=== PATIENT | female | born 1955 | race Caucasian/White ===

== ENCOUNTER 2022-06-21 09:54 | Observation (INO) | payer OTHER ==
[2022-06-16 09:50] LABS: Absolute Lymphocytes (CBC) 1.6 K/uL (0.7-4.9); Hematocrit 41.8 % (36.0-45.0); Lymphocytes % 30.4 % (15.3-44.8); MCV 96.1 fL (80-100); MPV 8.3 fL (7.6-11.3); RBC Red Blood Cell Count 4.35 M/uL (3.86-4.86)
[2022-06-16 09:54] LABS: Specific Gravity 1.005 (1.005-1.030); Urine Bilirubin NEGATIVE (Negative); Urine Blood Negative (Negative); Urine Clarity Clear (Clear); Urine Color Light-Yellow (Yellow); Urine Glucose NEGATIVE (Negative); Urine Protein NEGATIVE (Negative); Urine Urobilinogen Normal (Normal); Urine pH 7.5 (5.0-7.0)
[2022-06-16 10:01] LABS: Protime INR 0.95
[2022-06-16 10:12] LABS: SARS-CoV-2 Antigen Rapid Res Negative (Negative)
[2022-06-21] MEDS ORDERED: CEFAZOLIN SODIUM 1 GM/VIAL ONE ×2 (10:16→12:36)
[2022-06-21] MEDS ORDERED: Ringers Lactate 1,000 ML IV ONE ×2 (10:16→13:52)
[2022-06-21] MEDS ORDERED: CEFAZOLIN 2 GM IN 0.9% NACL 2 GM/100 ML BAG ONE (10:16)
[2022-06-21] MEDS ORDERED: ROCURONIUM 50 MG/5 ML VIAL IV ONE (12:18)
[2022-06-21] MEDS ORDERED: FENTANYL CITR 100 MCG/2 ML ONE (12:18)
[2022-06-21] MEDS ORDERED: propofoL 200 MG/20 ML VIAL IV ONE (12:18)
[2022-06-21] MEDS ORDERED: MIDAZOLAM HCL 2 MG/2 ML INJ ONE (12:18)
[2022-06-21] MEDS ORDERED: ONDANSETRON 4 MG/2 ML VIAL ONE (12:19)
[2022-06-21] MEDS ORDERED: KETOROLAC 30 MG/ML INJ ONE (12:19)
[2022-06-21] MEDS ORDERED: LIDOCAINE 1% MPF 5 ML VIAL ONE (12:19)
[2022-06-21] MEDS ORDERED: dexAMETHasone 10 MG/ML VIAL ONE (12:19)
[2022-06-21] MEDS ORDERED: LIDOCAINE 1% W/EPI 1:100,000 10 ML VIAL ONE (12:26)
[2022-06-21] MEDS ORDERED: NA CHLORIDE 0.9% 1,000 ML ONE (12:27)
[2022-06-21] MEDS ORDERED: NA CHLORIDE 0.9% 50 ML ONE ×2 (12:27→12:36)
[2022-06-21] MEDS ORDERED: VASOPRESSIN 20 UNIT/ML VIAL ONE (12:29)
[2022-06-21] MEDS ORDERED: VECURONIUM 10 MG/VIAL IV ONE ×2 (12:29→13:52)
[2022-06-21] MEDS ORDERED: NS 0.9% VIAL 10 ML ONE ×3 (12:29→14:26)
[2022-06-21] MEDS ORDERED: SCOPOLAMINE HYDROBROMIDE PATCH TD ONE (12:44)
[2022-06-21] MEDS ORDERED: LANO/MINERAL OIL/PETRO 3.5 GM ONE (12:49)
[2022-06-21] MEDS ORDERED: ACETAMINOPHEN 500 MG TAB PO PRN (16:09)
[2022-06-21] MEDS ORDERED: PROMETHAZINE INJ 25 MG/ML AMP IV PRN (16:09)
[2022-06-21] MEDS ORDERED: MORPHINE 2 MG/ML SYR IV PRN (16:09)
[2022-06-21] MEDS ORDERED: ONDANSETRON 4 MG/2 ML VIAL IV PRN (16:09)
--- NOTE | 2022-06-21 16:22 | P.BOP ---
Preoperative diagnosis: Pelvic organ prolapse, occult MED Postoperative diagnosis: stg3 post wall,vault anterior wall prolapse,post enter ocele,perineocele,MED Primary procedure: Ant repair,post approach rosie SSLFcolpopexy, biologic graft aug post repair Secondary procedure: post enterocele, perienocele repair, cysto, Urethral bulking Other procedure(s): removal of post vag wall 1cm condyloma Glass Sagger: Deepali Harris Estimated blood loss: 100 Specimen: condyloma Findings: -1/0/-1/6/thin/7/0/+3/na Anesthesia: General Complications: None Drain(s): Urinary catheter Implants: [place] 8x6cm dermis graft, Bulkamid Fluids & blood products: 1500LR, UO 300, EBL 100 Transferred to: Recovery Room Condition: Good
--- OUTSIDE RECORDS SUMMARY | 2022-06-21 16:35 | XMS REPORT | Continuity of Care Document ---
:1955 Author Organization [facility] t Address [address] [place] [address] [address]. [address] [place] [address] Care Team Providers Name Role Phone ARASH_Breezy Attending Clinician Unavailable Yobany Antoine Attending Clinician [phone] ARASH_Breezy Admitting Clinician Unavailable Payers Payer Name Policy Type Policy Number Effective Date Expiration Date S b[place] [id number] Problems This patient has no known problems. Allergies, Adverse Reactions, Alerts This patient has no known allergies or adverse reactions. Medications This patient has no known medications. Procedures This patient has no known procedures. Encounters Start End Encounter Admission Attending Care Care Encounter Source Date/Time Date/Time Type Type Clinicians Facility Department ID 2020-11-18 2020-11-18 Outpatient [facility] 2020 [place] 11:49:00 11:49:00 [facility] 2020-11-17 2020-11-17 Outpatient [facility] [id number] [place] 05:55:00 05:55:00 0202 [facility] 2020-11-17 2020-11-17 Outpatient Arash [facility] [id number] 00:00:00 00:00:00 Yobany [id number] Results This patient has no known results.
[2022-06-21] MEDS: HYDROMORPHONE HCL 1 MG/ML INJ ONE ×2 (16:36→16:53)
[2022-06-21] MEDS ORDERED: DOCUSATE NA 100 MG CAP PO PRN (16:38)
[2022-06-21] MEDS ORDERED: Ringers Lactate 1,000 ML IV SCH (17:00)
[2022-06-21] MEDS ORDERED: ALBUTEROL 2.5 MG/3 ML NEB SOL NEB PRN (18:11)
[2022-06-21 18:16] VITALS: O2SAT 97
[2022-06-21 18:43] VITALS: BMI 35.6
[2022-06-21] MEDS ORDERED: PNEUMOCOCCAL VACCINE 0.5 ML IMVAC ONE (19:00)
[2022-06-21] MEDS ORDERED: MOMETASONE FUROATE 220 MCG IH SCH (21:00)
[2022-06-22] MEDS: HYDROCODONE/APAP 5/325 MG TAB PO PRN ×2 (02:09→10:26)
--- NOTE | 2022-06-22 04:10 | OP ---
Date of Procedure: 06/21/2022 Surgeon: Esmer Garcia MD Server Software Engineer: Deepali Lora. Preoperative Diagnoses: Pelvic organ prolapse and occult stress urinary incontinence. Postoperative Diagnoses: Stage III posterior wall prolapse, anterior wall stage II prolapse, posteri or enterocele, perineocele, occult stress urinary incontinence, and posterior vaginal wall condyloma. Procedures Performed: 1.Anterior repair. 2.Posterior approach bilateral sacrospinous ligament fixation and colpopexy. 3.Biologic graft augmented posterior wall repair. 4.Posterior enterocele repair. 5.Perineocele repair. 6.Cystoscopy. 7.Urethral bulking. 8.Removal and excision of posterior vaginal wall condyloma, which was 1 cm. Anesthesia: General with LMA. Ebl: 100. Urine Output: 300. Fluids: 1500 LR. Specimen: Condyloma. Complications: No complications. Drains: Morrow catheter. Implants: [place] Dermis 8 x 6 graft and Bulkamid 0.7 mL. Disposition: Transferred to the recovery room in stable condition. Findings: The patient's POP-Q is -1, 0, -1, 6, 10, 7, 0, +3, NA. After filling her bladder with 350 of saline, Valsalva was performed, after the full reconstruction. There was very minimal leakage so decided to do urethral bulking, very slight amount was placed. Procedure In Detail: After informed consent was verified, the patient was brought back to the OR. H er was present at the preop and questions and answers were done to their satisfaction. The patient understood all the alternatives to her reconstructive surgery. Had defecatory dysfunctio n, which she was compensating for and symptomatic prolapse. Declined pessary and wanted surgical rep air and she was consented and brought to the OR fully understanding about the posterior graft, augmen t, and repair in case that there is a large upper posterior wall fascial defect that could not be rep aired primarily, especially in the absence of a cervical pericervical ring or any fascia that could b e identified at the top to which the proximal remaining rectovaginal septum can be anchored to. The patient understood this. This is her initial repair and the biologic graft, she understood would be used as if needed. She will be also discussed about the possible anterior repair, if the defect was seen and deemed nece ssary and same thing with the MED for bulking. She was taken back to OR, 2 g of Ancef were given, and SCDs were placed. The patient was placed in a supine fashion on the operating table. General anesthesia was given. She was placed in a dorsal li thotomy position using Los stirrups. Arms were laid to the side and positioning was checked. SCDs were started and a time-out was done. Then procedure was started. The lower abdomen, vulva, vagina , medial thigh were all prepped and draped in a sterile fashion. Morrow was placed to drain the bladd er and clamped with a Sonal and retracted superiorly. Then, the anterior wall from the vault to the urethrovesical junction was held with 2 Allis clamps. This seemed to be a proximal detachment of the precervical fascia to the apex, so this was opened in the midline after injecting dilute vasopressin . The bladder was dissected inferiorly, left the fascia intact while doing the dissection and stayin g then on the vaginal epithelium. Once this was done, opened up all the way to the vault and then I was able to take the fascial defect and reattach it to the vaginal wall. Once this was done, the epi thelium was closed in a continuous running fashion. There was no trimming that was performed in the anterior compartment. Posteriorly, the remnants of the hymen were identified and held with Allis clamps. Then, the posteri or wall was measured with its large proximal enterocele, which was probably about 50% of the posterio r defect. The posterior wall length was 9 cm. Rectovaginal exam performed and clearly part of the s phincter was intact, but the perineum, the vestibule, and the deep transverse perineum were also sepa rated. So a plan was made to make a natividad-shaped incision, starting right at the level of the hyme n into the vestibule and down onto the perineum. This was drawn out and then another natividad-shaped incision was made in the distal posterior wall. Epithelium was deepithelialized after injecting vaso pressin. Then the lateral structures were exposed by mobilizing the lateral flaps on the perineum at the level of the vestibule as well. Once this was done adequately, then attention was directed to t he posterior wall. Here the epithelium was incised with the help of a 15 blade and the epithelium wa s peeled off the remaining deep connective tissue. Once all this was deepithelialized, then the edge s were held with Allis clamps and dissection was performed to separate the rectovaginal septum from i ts overlying tissues in the proximal part and then laterally all the way down to the level of the hym en. Did not need to expose the levators as the lateral attachment of the distal rectovaginal septum was intact and these attachments were left preserved in order for me to attach the distal part of the graft here. Once the posterior enterocele was exposed, dissection was performed all the way to the level of the v aginal apex. Then dissection was carried laterally to the sacrospinous ligament. The ischial spine was identified and medially sweeping posteriorly, the ligament was exposed on the right side and then on the left side, dissecting the rectum away from the ligament. Capio was taken with a Prolene suture, 1 on each side, placed in the mid ligament protecting the violet l while doing so and tagging it to hemostat on each side. Then, the apex was identified in the area of the possible uterosacral ligament. Allis clamps were placed and a 2-0 PDS rxlqob-bh-hzagi suture was placed and they were tacked in the center of the posterior vaginal wall and in the midline anothe r 2-0 PDS was placed for attachment of the graft. Fashioned the graft, took an 8 x 6 and cut it down to almost a T, 8 cm at the interspinous side proxi mauricio and then distally 3 cm was left as the width. Posterior enterocele was reduced by using a 3-0 Monocryl in a pursestring fashion reducing the entero christie adequately all the way to the proximal part of the remaining remnant of the rectovaginal septum. I then tacked 2-0 PDS in the center as well as on the sides that were placed at the apex to the pro ximal rectovaginal septum so that the fascia was straightened out and pulled up. This was then attac hed the graft in the center and on both sides and the sutures were tied down. Then, the sacrospinous sutures were attached to the graft and a nohelia stitch was placed and this was used to pull the stefania t all the way back to the ligament and tie the knots without leaving any space. Once both of them we re tied at the apex, there was excellent support, both in the center as well as in the posterior wall . The distal part of the defect was then repaired. Attention was directed to the perineum and the perineocele. The edges were nicely dissected, so star kierra placing 2-0 Vicryl sutures to bring the structures together from the deep transverse perineum all the way to the area of the perineum and the external sphincter. Interrupted sutures [id number]-fi-tqzu we re placed, 2 rows in 2 layers were placed and 4 each in each layer. This reconstructed the entire pe rineum, perineal body and the vestibule. Then attention was directed to bring together the lax recto vaginal septum from aizg-yg-vzox with 2-0 PDS suture in a continuous running fashion and this was att ached to the newly reconstructed perineal body. Once this was done, the suture was left on the needl e and this was attached to the distal part of the graft in a continuous running fashion from side-to- side. There was excellent attachment and the knot was buried. Then, the posterior vaginal wall was picked up with the help of a long Sonal and slightly trimmed about 0.5 cm on each side, taken with th e curved Burris's and then closure was done with a continuous running 2-0 Vicryl suture. Once this was done all the way to the level of the perineum, then 3-0 Vicryl was taken and a continuous running desai ture was placed by closing the subcutaneous tissues and then subcuticular tissues. On rectovaginal e xam, there was thick perineal body. No tightening at the level of the hymen and adequate vaginal stephanie meter and length were maintained. Urethral bulking was performed after cystoscopy. A 30-degree scope and 17-Yi sheath were used. Both ureteric orifices had strong jets of urine. No evidence of any foreign body or trauma to the bl adder. The bladder was then drained. The pediatric cystoscope was then taken with the Bulkamid sheath attached to it. The needle with 1 m L syringe with the Bulkamid implant was taken and the needle was extended to the internal meatus. Th en the sheath was placed at the internal meatus, the needle extended past 2 cm into the bladder and e verything pulled back to mid urethral area. Needle retracted back into the tract and injected at 5 o 'clock, 2 o'clock, 11 and 7, 0.2 mL each was injected at each side. The scope was then carefully rem anjali without dilating the proximal part of the urethra, which was just bulked. A 12-Yi Morrow was placed for drainage overnight. Vaginal packing was placed. Rectal exam negati ve. The patient recovered from anesthesia and taken to PACU in stable condition. She will be admitt ed overnight for observation and then will be discharged after voiding trials tomorrow. MARCELINO/DAYANNA Voice ID: [id number] Report ID: [id number]
[2022-06-22 08:45] VITALS: BP 145/74; TEMP 98.5
[2022-06-22] MEDS ORDERED: FLUTICASONE 50MCG NASAL SPRAY NAS SCH (09:00)
[2022-06-22] MEDS ORDERED: AMLODIPINE 10 MG TAB PO SCH (09:00)
[2022-06-22] MEDS ORDERED: HOME MED 1 EA UNK (Estradiol [Estrace] 42.5 GM Cream.Appl) VAG SCH (09:00)
[2022-06-22] MEDS ORDERED: MULTIVITAMIN TAB PO SCH (09:00)
[2022-06-22] MEDS ORDERED: OLMESARTAN PO SCH (09:00)
[2022-06-22] MEDS ORDERED: [UNRECOGNIZED DRUG - REMARK] PO SCH (09:00)
[2022-06-22] MEDS ORDERED: HYDROCHLOROTHIAZIDE PO SCH (09:00)
== END 2022-06-22 11:05 | disposition home or self-care (01) ==
LOC: OR 09:54 → 2ND-WC 16:32
PROVIDERS: ADMIT Obstetrics & Gynecology; ATTEND Obstetrics & Gynecology
PROC: 0JUC0JZ Supplement of Pelvic Region Subcutaneous Tissue and Fascia with Synthetic Substitute, Open Approach (ICD-10-PCS; 2022-06-21)
PROC: 0JUC0JZ Supplement of Pelvic Region Subcutaneous Tissue and Fascia with Synthetic Substitute, Open Approach (ICD-10-PCS; 2022-06-21)
PROC: 0HQ9XZZ Repair Perineum Skin, External Approach (ICD-10-PCS; 2022-06-21)
PROC: 0USG7ZZ Reposition Vagina, Via Natural or Artificial Opening (ICD-10-PCS; 2022-06-21)
PROC: 0TVD8ZZ Restriction of Urethra, Via Natural or Artificial Opening Endoscopic (ICD-10-PCS; 2022-06-21)
PROC: 0UBG7ZZ Excision of Vagina, Via Natural or Artificial Opening (ICD-10-PCS; 2022-06-21)
PROC: 0UUF0JZ Supplement Cul-de-sac with Synthetic Substitute, Open Approach (ICD-10-PCS; principal; 2022-06-21 11:30)
DX: N99.3 Prolapse of vaginal vault after hysterectomy (principal); N39.3 Stress incontinence (female) (male); N32.81 Overactive bladder; A63.0 Anogenital (venereal) warts; J45.30 Mild persistent asthma, uncomplicated; I10 Essential (primary) hypertension; N84.2 Polyp of vagina; Z20.822 Contact with and (suspected) exposure to COVID-19
CPT/HCPCS: 57265; 57267; 57282; 51715; 57135; 85025; 36415; 86900; 86850; 85610; 86870 ×2; 86901; 82947; 88304; 85730; 81003; 87811; G0379; J2704; J2001; J2250; J3010; J1100; J2270; A4216 ×3; J1170; J0690 ×3; G0378 ×3; J7120 ×4; J7030; J2405; L8606; 88305

== ENCOUNTER 2023-04-03 03:08 | Emergency (ER) | payer OTHER ==
--- OUTSIDE RECORDS SUMMARY | 2023-04-03 03:11 | XMS REPORT | Continuity of Care Document ---
:1955 Author Organization [facility] t Address [address] [place] [address] [place] [address] Care Team Providers Name Role Phone ARASH_Breezy Attending Clinician Unavailable Yobany Antoine Attending Clinician [phone] ALYSIA Admitting Clinician Unavailable Payers Payer Name Policy Type Policy Number Effective Date Expiration Date S fac[place] [id number] Problems This patient has no known problems. Allergies, Adverse Reactions, Alerts This patient has no known allergies or adverse reactions. Medications This patient has no known medications. Procedures This patient has no known procedures. Plan of Care Planned Activity Planned Date Details Comments Source Diagnostic Test 2020-11-17 COVID-19 RNA [place] [facility] Pending 00:00:00 (SARS-CoV-2), , [facility] linics spring coverer-PCR, 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 [code = COVID-19 RNA (SARS-CoV-2), QL, spring coverer-PCR, 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] Diagnostic Test 2020-11-17 COVID-19 RNA [place] [facility] Pending 00:00:00 (SARS-CoV-2), , [facility] linics spring coverer-PCR, 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 [code = COVID-19 RNA (SARS-CoV-2), , spring coverer-PCR, 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] Diagnostic Test 2020-11-17 rapid SARS CoV 2 Ag, [facility] Pending 00:00:00 QL [place], respiratory Hospital Clinics specimen [code = rapid SARS CoV 2 Ag, QL [place], 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] Encounters Start End Encounter Admission Attending Care Care Encounter Source Date/Time Date/Time Type Type Clinicians Facility Department ID 2020-11-18 2020-11-18 Outpatient [facility]ree[facility] 2020 [place] 11:49:00 11:49:00 0203 [facility] 2020-11-17 2020-11-17 [facility] 2020 [place] 05:55:00 05:55:00 0202 [facility] 2020-11-17 2020-11-17 [id number]:00:00 00:00:00 Yobany [id number] 2020-11-17 2020-11-17 [facility] [place] [facility] [place] 00:00:00 00:00:00 Arash, [facility] MSN, HOMEMAKER [employer]ION, [facility] - ty MANAGEMENT MANAGER-C: [address] [facility] [address], [facility] [address], [place], [place] MSN, MANAGEMENT MANAGER-C [id number] , Ph. Results Test Description Test Time Test Comments Results Result Comments Source SARS-CoV-2 (COVID-19) Ag [Presence] in Respiratory spe cimen by 2020-11-17 16:57:00 Rapid immunoassay Test Item Value Reference Range Interpretation Comme nts SARS CoV 2 (test code = SARS CoV 2) positive [facility]
[2023-04-03] MEDS ORDERED: MORPHINE 4 MG/ML SYR ONE (04:05)
[2023-04-03] MEDS ORDERED: ONDANSETRON 4 MG/2 ML VIAL ONE (04:06)
[2023-04-03] MEDS ORDERED: NA CHLORIDE 0.9% 1,000 ML ONE (04:06)
[2023-04-03] MEDS ORDERED: KETOROLAC 30 MG/ML INJ ONE (04:06)
[2023-04-03 04:15] LABS: Absolute Lymphocytes (CBC) 1.5 K/uL (0.7-4.9); Hematocrit 40.9 % (36.0-45.0); Lymphocytes % 16.6 % (15.3-44.8); MCV 97.4 fL (80-100); RBC Red Blood Cell Count 4.19 M/uL (3.86-4.86)
[2023-04-03 04:27] LABS: Protime INR 1.03
[2023-04-03 04:35] LABS: Albumin 3.8 g/dL (3.4-5.0); Bilirubin Direct 0.1 mg/dL (0-0.2); Bilirubin Indirect, Calculated 0.4 mg/dL (0.2-0.8); Bilirubin Total 0.5 mg/dL (0.2-1.0); Potassium 3.2 mEq/L (3.5-5.1); Protein, Total 7.9 g/dL (6.4-8.2); Troponin High Sensitivity 4.6 pg/mL (<58.9)
[2023-04-03 05:53] LABS: Specific Gravity 1.018 (1.005-1.030); Urine Bacteria <20 /HPF (<20); Urine Bilirubin NEGATIVE (Negative); Urine Blood 3+ (OVER) (Negative); Urine Clarity Extremely Turbid (Clear); Urine Color Light-Yellow (Yellow); Urine Glucose NEGATIVE (Negative); Urine Mucus Slight /HPF (None Seen); Urine Protein TRACE (Negative); Urine RBC >50 /HPF (None Seen); Urine Urobilinogen Normal (Normal)
--- NOTE | 2023-04-03 06:02 | EDPHYS ---
Physician Documentation [facility] Name: Danita Soto Age: 67 yrs Sex: Female : 1955 Arrival Date: 04/03/2023 Time: 03:08 Bed 5 Private MD: ED Physician Tunde Aguirre HPI: 04/03 03:22 This 67 yrs old Female presents to ER via Unassigned with complaints of Back sp4 Pain, Nausea. 05:55 Patient presents with moderate to severe left back pain starting on awakening at 10 PM. sp4 Patient reported some pain radiation to the left flank. Denied bloody urine. He denied any urinary symptom. Reported similar pain with prior history of kidney stone. . Historical: - Allergies: 03:26 No Known Allergies; kd3 - Home Meds: 03:26 amlodipine 10 mg tablet daily [Active]; meloxicam 15 mg oral tablet daily [Active]; kd3 olmesartan-hydrochlorothiazide 40-25 mg oral tablet daily [Active]; fluorometholone 0.1 % ophthalmic (eye) drops, suspension every 12 hours [Active]; - Immunization history:: Adult Immunizations up to date. - Social history:: Smoking status: Patient denies any tobacco usage or history of. - Family history:: not pertinent. ROS: 05:55 Constitutional: Negative for fever, chills, and weight loss, Eyes: Negative for injury, sp4 pain, redness, and discharge, ENT: Negative for injury, pain, and discharge, Neck: Negative for injury, pain, and swelling, Cardiovascular: Negative for chest pain, palpitations, and edema, Respiratory: Negative for shortness of breath, cough, wheezing, and pleuritic chest pain, Abdomen/GI: Negative for abdominal pain, nausea, vomiting, diarrhea, and constipation, Back: Negative for injury, positive for left back pain radiation left flank : Negative for injury, bleeding, discharge, and swelling, MS/Extremity: Negative for injury and deformity, Skin: Negative for injury, rash, and discoloration, Neuro: Negative for headache, weakness, numbness, tingling, and seizure, Psych: Negative for depression, anxiety, Allergy/Immunology: Negative for hives, rash, and allergies Endocrine: Negative for neck swelling, polydipsia, polyuria, polyphagia, and weight changes Hematologic/Lymphatic: Negative for swollen nodes, abnormal bleeding, and unusual bruising Exam: 05:55 Constitutional: This is a well developed, well nourished patient who is awake, alert, sp4 and in no acute distress. Head/Face: Normocephalic, atraumatic. Eyes: Pupils equal round and reactive to light, extra-ocular motions intact. Lids and lashes normal. Conjunctiva and sclera are not injected. Cornea within normal limits. Periorbital areas with no swelling, redness, or edema. ENT: Nares patent. No nasal discharge, no septal abnormalities noted. Tympanic membranes are normal and external auditory canals are clear. Oropharynx with no redness, swelling, or masses, exudates, or evidence of obstruction, uvula midline. Mucous membranes moist. Neck: Trachea midline, no thyromegaly or masses palpated, and no cervical lymphadenopathy. Supple, full range of motion without nuchal rigidity, or vertebral point tenderness. Chest/axilla: Normal chest wall appearance and motion. Nontender with no deformity. No lesions are appreciated. Cardiovascular: Regular rate and rhythm with a normal S1 and S2. No gallops, murmurs, or rubs. Normal PMI, no JVD. No pulse deficits. Respiratory: Lungs have equal breath sounds bilaterally, clear to auscultation and percussion. No rales, rhonchi or wheezes noted. No increased work of breathing, no retractions or nasal flaring. Abdomen/GI: Soft, non-tender, with normal bowel sounds. No distension or tympany. No guarding or rebound. No evidence of tenderness throughout. Back: No spinal tenderness. No costovertebral tenderness. Skin: Warm, dry with normal turgor. Normal color with no rashes, no lesions, and no evidence of cellulitis. MS/ Extremity: Pulses equal, no cyanosis. Neurovascular intact. Full, normal range of motion. Neuro: Awake and alert, GCS 15, oriented to person, place, time, and situation. Cranial nerves II-XII grossly intact. Motor strength 5/5 in all extremities. Sensory grossly intact. Psych: Awake, alert, with orientation to person, place and time. Behavior, mood, and affect are within normal limits Vital Signs: 03:23 BP 178 / 85; Pulse 72; Resp 16; Temp 97.9; Pulse Ox 96% on R/A; Weight 95.25 kg; Height kd3 5 ft. 5 in. ; 04:20 BP 117 / 55; Pulse 75; Resp 16 S; Pulse Ox 96% on R/A; ha1 03:23 Body Mass Index 34.95 (95.25 kg, 165.1 cm) kd3 MDM: 03:31 Patient medically screened. sp4 05:55 Differential diagnosis: Fatigue Fracture Osteoarthritis Scoliosis. Data reviewed: vital sp4 signs, nurses notes, lab test result(s), radiologic studies, CT scan. ED course: Pain resolved after the medications. Labs reveal hematuria. Otherwise labs essentially normal. CT revealed 4 mm renal stone in the left upper ureter. Mild hydronephrosis on the left side. Based on the stone size stone will pass on its own. . 04/03 03:21 Order name: Urinalysis W/Microscopic; Complete Time: 05:54 sp4 04/03 03:30 Order name: Basic Metabolic Panel; Complete Time: 05:36 sp4 04/03 03:30 Order name: CBC with Diff; Complete Time: 05:36 4 04/03 03:30 Order name: LFT's; Complete Time: 05:36 sp4 04/03 03:30 Order name: PT-INR; Complete Time: 05:36 4 04/03 03:30 Order name: Troponin HS; Complete Time: 05:36 4 04/03 03:30 Order name: CT Abd/Pelvis - IV Contrast Only 4 04/03 03:30 Order name: IV Saline Lock; Complete Time: 04:11 sp4 04/03 03:30 Order name: Labs collected and sent; Complete Time: 04:11 sp4 Administered Medications: 04:00 Drug: NS 0.9% IV 1000 ml Route: IV; Rate: 1 bolus; Site: right antecubital; ha1 04:00 Drug: Ondansetron IVP 4 mg Route: IVP; Site: right antecubital; ha1 04:03 Drug: morphine IVP or IV 4 mg Route: IVP; Infused Over: 4 mins; Site: right antecubital;ha1 04:06 Drug: Ketorolac IVP 30 mg Route: IVP; Site: right antecubital; ha1 06:15 Drug: Flomax PO 0.4 mg Route: PO; kd3 06:15 Drug: Ondansetron PO 4 mg Route: PO; kd3 06:16 Drug: Gramercy PO 10 mg-325 mg 1 tabs Route: PO; kd3 Disposition Summary: 04/03/23 06:02 Discharge Ordered Location: Home sp4 Problem: new sp4 Symptoms: have improved sp4 Condition: Stable sp4 Diagnosis - Left ureteral stone, renal colic sp4 Followup: sp4 - With: Lm Nugent MD - When: 10 - 14 days - Reason: Recheck today's complaints Discharge Instructions: - Discharge Summary Sheet sp4 - Kidney Stones, [id number]-rg-[id number] sp4 Prescriptions: - Flomax 0.4 mg Oral capsule - take 1 capsule by ORAL route every 24 hours for 30 days; 30 capsule; Refills: sp4 0, Product Selection Permitted - ketorolac 10 mg Oral tablet - take 1 tablet by ORAL route every 6 hours for 7 days PRN for pain; 30 tablet; sp4 Refills: 0, Product Selection Permitted - Zofran 4 mg Oral Tablet - take 1 tablet by ORAL route every 6 hours As needed; 30 tablet; Refills: 0, sp4 Product Selection Permitted - Tramadol 50 mg Oral Tablet - take 1 tablet by ORAL route every 8 hours as needed; 12 tablet; Refills: 0, sp4 Product Selection Permitted Signatures: Dispatcher [employer] Dodie Real RN RN kd3 Natasha Tinsley RN RN ha1 Tunde Aguirre MD MD sp4
--- NOTE | 2023-04-03 06:02 | ER ---
Nurse's Notes [facility] Name: Danita Soto Age: 67 yrs Sex: Female : 1955 Arrival Date: 04/03/2023 Time: 03:08 Bed 5 Private MD: Diagnosis: Left ureteral stone, renal colic Presentation: 04/03 03:23 Chief complaint: Patient states: I have a pain in my left lower back that radiates kd3 around to my abdomen. My left hip/back always hurts but i am getting more pain than normal that started last night. Coronavirus screen: Vaccine status: Patient reports receiving the 2nd dose of the covid vaccine. Ebola Screen: No symptoms or risks identified at this time. Initial Sepsis Screen: Does the patient meet any 2 criteria? No. Patient's initial sepsis screen is negative. Does the patient have a suspected source of infection? No. Patient's initial sepsis screen is negative. Risk Assessment: Do you want to hurt yourself or someone else? Patient reports no desire to harm self or others. Onset of symptoms was April 03, 2023. 03:23 Method Of Arrival: Ambulatory kd3 03:23 Acuity: LOBITO 3 kd3 Triage Assessment: 03:26 General: Appears in no apparent distress. Behavior is calm, cooperative. Pain: kd3 Complains of pain in left low back, left lower quadrant and left hip. Musculoskeletal: Circulation, motion, and sensation intact. Historical: - Allergies: 03:26 No Known Allergies; kd3 - Home Meds: 03:26 amlodipine 10 mg tablet daily [Active]; meloxicam 15 mg oral tablet daily [Active]; kd3 olmesartan-hydrochlorothiazide 40-25 mg oral tablet daily [Active]; fluorometholone 0.1 % ophthalmic (eye) drops, suspension every 12 hours [Active]; - Immunization history:: Adult Immunizations up to date. - Social history:: Smoking status: Patient denies any tobacco usage or history of. - Family history:: not pertinent. Screenin:16 [facility] ED Fall Risk Assessment (Adult) History of falling in the last 3 months, kd3 including since admission No falls in past 3 months (0 pts) Confusion or Disorientation No (0 pts) Intoxicated or Sedated No (0 pts) Impaired Gait No (0 pts) Mobility Assist Device Used No (0 pt) Altered Elimination No (0 pt) Score/Fall Risk Level 0 - 2 = Low Risk Maintained a safe environment. Abuse screen: Denies threats or abuse. Denies injuries from another. Nutritional screening: No deficits noted. Tuberculosis screening: No symptoms or risk factors identified. Assessment: 03:16 General: Appears uncomfortable, Behavior is cooperative. Pain: Complains of pain in ha1 abdomen and back Pain radiates to left low back Pain currently is 8 out of 10 on a pain scale. Quality of pain is described as throbbing. Neuro: Level of Consciousness is awake, alert, obeys commands, Oriented to person, place, time, situation. Cardiovascular: Patient's skin is warm and dry. Respiratory: Airway is patent Respiratory effort is even, unlabored, Respiratory pattern is regular, symmetrical. GI: Abdomen is round non-distended, Bowel sounds present X 4 quads. Reports lower abdominal pain, nausea. : No signs and/or symptoms were reported regarding the genitourinary system. EENT: No signs and/or symptoms were reported regarding the EENT system. Derm: Skin is pink, warm \T\ dry. Musculoskeletal: Circulation, motion, and sensation intact. Range of motion: intact in all extremities. 04:20 Reassessment: Patient and/or family updated on plan of care and expected duration. Pain ha1 level reassessed. Patient is alert, oriented x 3, equal unlabored respirations, skin warm/dry/pink. Patient states feeling better. Patient states symptoms have improved. 05:20 Reassessment: Patient and/or family updated on plan of care and expected duration. Pain ha1 level reassessed. Patient is alert, oriented x 3, equal unlabored respirations, skin warm/dry/pink. Patient denies pain at this time. Patient states feeling better. Patient states symptoms have improved. Vital Signs: 03:23 BP 178 / 85; Pulse 72; Resp 16; Temp 97.9; Pulse Ox 96% on R/A; Weight 95.25 kg; Height kd3 5 ft. 5 in. ; 04:20 BP 117 / 55; Pulse 75; Resp 16 S; Pulse Ox 96% on R/A; ha1 03:23 Body Mass Index 34.95 (95.25 kg, 165.1 cm) kd3 ED Course: 03:14 Patient arrived in ED. ja2 03:21 Potepalov, Tunde, MD is Attending Physician. sp4 03:26 Triage completed. kd3 03:26 Arm band placed on right wrist. kd3 04:11 Basic Metabolic Panel Sent. ha1 04:11 CBC with Diff Sent. ha1 04:11 LFT's Sent. ha1 04:11 PT-INR Sent. ha1 04:11 Troponin HS Sent. ha1 04:58 CT Abd/Pelvis - IV Contrast Only In Process Unspecified. EDMS 05:19 Natasha Tinsley, THA is Primary Nurse. ha1 06:01 Lm Nugent MD is Referral Physician. sp4 06:16 Patient has correct armband on for positive identification. kd3 06:16 No provider procedures requiring assistance completed. IV discontinued, intact, kd3 bleeding controlled, No redness/swelling at site. Pressure dressing applied. Administered Medications: 04:00 Drug: NS 0.9% IV 1000 ml Route: IV; Rate: 1 bolus; Site: right antecubital; ha1 04:00 Drug: Ondansetron IVP 4 mg Route: IVP; Site: right antecubital; ha1 04:03 Drug: morphine IVP or IV 4 mg Route: IVP; Infused Over: 4 mins; Site: right antecubital;ha1 04:06 Drug: Ketorolac IVP 30 mg Route: IVP; Site: right antecubital; ha1 06:15 Drug: Flomax PO 0.4 mg Route: PO; kd3 06:15 Drug: Ondansetron PO 4 mg Route: PO; kd3 06:16 Drug: [place] PO 10 mg-325 mg 1 tabs Route: PO; kd3 Medication: 06:16 VIS not applicable for this client. kd3 Outcome: 06:02 Discharge ordered by . sp4 06:16 Discharged to home ambulatory. kd3 06:16 Condition: stable 06:16 Discharge instructions given to patient, family, Instructed on discharge instructions, follow up and referral plans. medication usage, Demonstrated understanding of instructions, follow-up care, medications, Prescriptions given X 4. 06:16 Patient left the ED. kd3 Signatures: Dispatcher [employer] EDSC Mihaela Akins ja2 Dodie Franklin RN RN kd3 Natasha Tinsley RN RN ha1 Louis Aguirrey, MD MD sp4
[2023-04-03] MEDS ORDERED: HYDROCODONE/APAP 10/325 TAB ONE (06:18)
[2023-04-03] MEDS ORDERED: TAMSULOSIN 0.4 MG SR CAP ONE (06:18)
[2023-04-03] MEDS ORDERED: ONDANSETRON 4 MG (ODT) TAB ONE (06:18)
[2023-04-03 06:22] VITALS: BP 117/55; TEMP 97.9; O2SAT 96
--- NOTE | 2023-04-03 10:32 | RAD REPORT ---
EXAM DESCRIPTION: CT - Abdomen Pelvis W Contrast - 04/03/2023 6:28 am CLINICAL HISTORY: The patient is 67 years old and is Female; ABD PAIN TECHNIQUE: Axial computed tomography images of the abdomen and pelvis with intravenous contrast. S agittal and coronal reformatted images were created and reviewed. This CT exam was performed using one or more of the following dose reduction techniques: automated exposure control, adjustment of t he mA and/or kV according to patient size, and/or use of iterative reconstruction technique. COMPARISON: No relevant prior studies available. FINDINGS: Lung bases: Unremarkable. No mass. No consolidation. ABDOMEN: Liver: Unremarkable. No mass. Gallbladder and bile ducts: Unremarkable. No calcified stones. No ductal dilation. Pancreas: Unremarkable. No mass. No ductal dilation. Spleen: Unremarkable. No splenomegaly. Adrenals: Unremarkable. No mass. Kidneys and ureters: 4 mm stone in the upper left ureter. Mild left hydroureteronephrosis and per inephric/periureteral stranding. Stomach and bowel: Sigmoid diverticulosis. No obstruction. No mucosal thickening. PELVIS: Appendix: No findings to suggest acute appendicitis. Bladder: Unremarkable. Reproductive: Uterus is not seen. ABDOMEN and PELVIS: Intraperitoneal space: Unremarkable. No free air. No significant fluid collection. Bones/joints: No acute fracture. No dislocation. Soft tissues: Unremarkable. Vasculature: Scattered atherosclerotic vascular calcifications. No abdominal aortic aneurysm. Lymph nodes: Unremarkable. No enlarged lymph nodes. IMPRESSION: 4 mm stone in the upper left ureter. Mild left hydroureteronephrosis and perinephric/per iureteral stranding. Electronically signed by: Javier Lucas MD 04/03/2023 5:19 AM CDT Due to temporary technical issues with the PACS/Fluency reporting system, reports are being signed by the in house radiologist without review as a courtesy to ensure prompt reporting. The interpreting r adiologist is fully responsible for the content of the report.
== END 2023-04-03 06:16 | disposition home or self-care (01) ==
LOC: ER 03:08
DX: N20.1 Calculus of ureter (principal); N23 Unspecified renal colic
CPT/HCPCS: 85025; 81001; 80048; 36415; 85610; 80076; 84484; 74177; 96375; 96374; 99284; Q9967; Q0162; J2405; J7030

== ENCOUNTER 2024-03-25 20:09 | Emergency (ER) | payer OTHER ==
--- OUTSIDE RECORDS SUMMARY | 2024-03-25 20:12 | XMS REPORT | Continuity of Care Document ---
Author Name Unknown Address [address] [facility] [address] [place] [address] [facility] Address [address] [facility] [address] [place] [address] Care Team Providers Care Gold Burnisher Name Role Phone Robby Ugalde Attending Clinician Unavailable [email or web address]_Kadiyala_S Attending Clinician Unavaila ble SISSON_C Attending Clinician Unavailable Yobany Antoine Attending Clinician [phone] Robby Ugalde Admitting Clinician Unavailable GC_GCBZW_Kadiyala_S Admitting Clinician Unavaila ble SISSON_C Admitting Clinician Unavailable Payers Payer Name Policy Type Policy Number Effective Date Expirati on Date Source [place]: [employer] [id number] 2021 00:00:00 CHAYO IBRAHIM FIORELLA (MEDICARE SUPPLEMENT) [id number] 2021 00:00:00 [place] [id number] Plan of Care Planned Activity Planned Date Details Comments Source Diagnostic Test Pending 2020-11-17 00:00:00 COVID-19 RNA (SARS-CoV-2), QL, optometry assistant-PCR, 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 [code = COVID-19 RNA (SARS-CoV-2), QL, optometry assistant-PCR, 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] [facility] Diagnostic Test Pending 2020-11-17 00:00:00 COVID-19 RNA (SARS-CoV-2), QL, optometry assistant-PCR, 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 [code = COVID-19 RNA (SARS-CoV-2), QL, optometry assistant-PCR, 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] [facility] Diagnostic Test Pending 2020-11-17 00:00:00 rapid SARS CoV 2 Ag, QL IA, 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 [code = rapid SARS CoV 2 Ag, QL IA, 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] [facility] Encounters Start Date/Time End Date/Time Encounter Type Admission Type Attending Clinicians Care Facility Care Department Encounter ID Source 2024-03-25 15:38[id number] 2023-08-15 08:54:01 Outpatient Robby Ugalde [facility] [id number] [facility] 2023-09-12 00:00:00 2023-09-12 00:00:00 Outpatient GC_GCBZW_Ka diyala_S PRIV PRIV [id number] [facility] 2023-08-09 00:00:00 2023-08-09 00:00:00 Outpatient GC_GCBZW_Ka diyala_S PRIV PRIV [id number] [facility] 2023-07-04 00:00:00 2023-07-04 00:00:00 Outpatient GC_GCBZW_Ka diyala_S PRIV PRIV [id number] [facility] 2023-05-08 00:00:00 2023-05-08 00:00:00 Outpatient GC_GCBZW_Ka diyala_S PRIV PRIV [id number] [facility] 2023-05-03 00:00:00 2023-05-03 00:00:00 Outpatient GC_GCBZW_Ka diyala_S PRIV PRIV [id number] [facility] 2020-11-18 11:49:00 2020-11-18 11:49:00 Outpatient SISSON_Breezy [facility] [id number] [facility] 2020-11-17 05:55:00 2020-11-17 05:55:00 Outpatient ROGERS_Breezy [facility] [id number] [facility] 2020-11-17 00:00:00 2020-11-17 00:00:00 Outpatient Yobany Antoine [facility] [id number] 2020-11-17 00:00:00 2020-11-17 00:00:00 Yobany Antoine, MSN, COORDINATOR CARDIOPULMONARY SERVICES, LABORER [employer]: [address], [address], [place] [address] , Ph. [facility] - [facility], [facility] - [facility], Yobany Antoine, MSN, LABORER [employer]C [id number] [facility] Results Test Description Test Time Test Comments Results Result Co mments Source [facility]
[2024-03-25] MEDS ORDERED: ONDANSETRON 4 MG/2 ML VIAL ONE (20:16)
[2024-03-25] MEDS ORDERED: KETOROLAC 30 MG/ML INJ ONE (20:16)
[2024-03-25] MEDS ORDERED: MORPHINE 4 MG/ML SYR ONE (20:17)
[2024-03-25 20:43] LABS: Absolute Eosinophils 0.1 K/uL (0-0.5); Absolute Lymphocytes (CBC) 2.1 K/uL (0.7-4.9); Absolute Monocytes 0.5 K/uL (0.1-1.3); Absolute Neutrophil 3.9 K/uL (1.8-8.0); Basophils % 0.7 % (0-1.3); Eosinophils % 1.6 % (0-4.4); Hematocrit 40.6 % (36.0-45.0); Hemoglobin 13.7 g/dL (12.0-15.0); Lymphocytes % 31.8 % (15.3-44.8); MCH 32.5 pg (27.0-35.0); MCHC 33.7 g/dL (32.0-36.0); MCV 96.6 fL (80-100); MPV 9.5 fL (7.6-11.3); Monocytes % 7.2 % (3.3-12.3); Neutrophils % 58.7 % (41.7-73.7); Platelets 236 thou/uL (152-406)
[2024-03-25 20:59] LABS: PT Prothrombin Time 11.2 SECONDS (9.5-12.5); PTT, Activated Partial Thromb 30.7 SECONDS (24.3-36.9); Protime INR 1.02
[2024-03-25 21:04] LABS: Albumin 3.6 g/dL (3.4-5.0); Anion Gap 8.5 mEq/L (5.0-15.0); Bilirubin Total 0.5 mg/dL (0.2-1.0); Globulin 3.6 g/dL (2.3-3.5); Protein, Total 7.2 g/dL (6.4-8.2)
[2024-03-25 21:05] LABS: Potassium 3.5 mEq/L (3.5-5.1)
--- NOTE | 2024-03-25 22:15 | ER ---
Nurse's Notes [facility] Name: Danita Soto Age: 68 yrs Sex: Female : 1955 Arrival Date: 03/25/2024 Time: 20:09 Bed 3 Private MD: Diagnosis: Epistaxis;acute posterior epistaxis Presentation: 03/25 20:17 Chief complaint: Patient states: nose bleed X30 min. Coronavirus screen: Client denies lg3 travel out of the [place] in the last 14 days. At this time, the client does not indicate any symptoms associated with coronavirus-19. Ebola Screen: No symptoms or risks identified at this time. Initial Sepsis Screen: Does the patient meet any 2 criteria? No. Patient's initial sepsis screen is negative. Does the patient have a suspected source of infection? No. Patient's initial sepsis screen is negative. Risk Assessment: Do you want to hurt yourself or someone else? Patient reports no desire to harm self or others. Onset of symptoms was March 25, 2024. 20:17 Method Of Arrival: Wheelchair lg3 20:17 Acuity: LOBITO 3 lg3 Triage Assessment: 20:19 General: Appears in no apparent distress. uncomfortable, Behavior is calm, cooperative. lg3 Pain: Denies pain. EENT: Nares with bleeding noted. Neuro: No deficits noted. Morales Agitation-Sedation Scale (RASS): 0 - Alert and Calm Level of Consciousness is awake, alert, obeys commands, Oriented to person, place, time, situation. Cardiovascular: No deficits noted. Denies chest pain, shortness of breath, Capillary refill < 3 seconds Clubbing of nail beds is absent JVD is absent Patient's skin is warm and dry. Respiratory: No deficits noted. Airway is patent Respiratory effort is even, unlabored, Respiratory pattern is regular, symmetrical. GI: No deficits noted. Abdomen is round non-distended, Reports nausea. : No signs and/or symptoms were reported regarding the genitourinary system. Derm: No deficits noted. No signs and/or symptoms reported regarding the dermatologic system. Skin is intact, is healthy with good turgor, Skin is dry, Skin is normal, Skin temperature is warm. Musculoskeletal: No deficits noted. No signs and/or symptoms reported regarding the musculoskeletal system. Circulation, motion, and sensation intact. Range of motion: intact in all extremities. Historical: - Allergies: 20:19 No Known Allergies; lg3 - Home Meds: 20:19 olmesartan-hydrochlorothiazide 40-25 mg Oral tablet daily [Active]; lg3 - PMHx: 20:19 Hypertensive disorder; lg3 - PSHx: 20:19 Total abdominal hysterectomy; pelvic floor; Ligation of fallopian tube; lg3 - Immunization history:: Adult Immunizations up to date. - Infectious Disease History:: Denies. - Social history:: Smoking status: Patient denies any tobacco usage or history of. Patient/guardian denies using alcohol, street drugs. - Family history:: not pertinent. Screenin:52 [facility] ED Fall Risk Assessment (Adult) History of falling in the last 3 months, vc1 including since admission No falls in past 3 months (0 pts) Confusion or Disorientation No (0 pts) Intoxicated or Sedated No (0 pts) Impaired Gait No (0 pts) Mobility Assist Device Used No (0 pt) Altered Elimination No (0 pt) Score/Fall Risk Level 0 - 2 = Low Risk Oriented to surroundings, Maintained a safe environment, Educated pt \T\ family on fall prevention, incl call for assistance when getting out of bed. Abuse screen: Denies threats or abuse. Nutritional screening: No deficits noted. Tuberculosis screening: No symptoms or risk factors identified. Assessment: 20:18 General: Appears in no apparent distress. comfortable, Behavior is calm, cooperative, vc1 appropriate for age. Pain: Denies pain. Neuro: Level of Consciousness is awake, alert, obeys commands, Oriented to person, place, time, situation, Appropriate for age. Cardiovascular: Heart tones S1 S2 Capillary refill < 3 seconds Patient's skin is warm and dry. Respiratory: Airway is patent Respiratory effort is even, unlabored, Respiratory pattern is regular, symmetrical, Breath sounds are clear bilaterally. GI: No deficits noted. No signs and/or symptoms were reported involving the gastrointestinal system. : No deficits noted. No signs and/or symptoms were reported regarding the genitourinary system. EENT: Nares with bleeding noted. Derm: No deficits noted. No signs and/or symptoms reported regarding the dermatologic system. Skin is intact, is healthy with good turgor, Skin is dry, Skin is normal, Skin temperature is warm. Musculoskeletal: No deficits noted. No signs and/or symptoms reported regarding the musculoskeletal system. Circulation, motion, and sensation intact. Range of motion: intact in all extremities. 20:54 Reassessment: Patient and/or family updated on plan of care and expected duration. Pain vc1 level reassessed. Patient is alert, oriented x 3, equal unlabored respirations, skin warm/dry/pink. Patient states symptoms have improved. 22:20 Reassessment: Patient appears in no apparent distress at this time. No changes from vc1 previously documented assessment. Patient and/or family updated on plan of care and expected duration. Pain level reassessed. Patient is alert, oriented x 3, equal unlabored respirations, skin warm/dry/pink. EENT: Nares bleeding has stopped due to placement of Rh[place]. Vital Signs: 20:17 BP 155 / 85; Pulse 83; Resp 17 S; Temp 98.1(O); Pulse Ox 96% on R/A; Weight 82.55 kg lg3 (R); Height 5 ft. 5 in. (R); 20:54 BP 126 / 76; Pulse 74; Resp 16; Pulse Ox 95% ; vc1 22:20 BP 127 / 78; Pulse 76; Resp 17; Pulse Ox 93% ; vc1 20:17 Body Mass Index 30.29 (82.55 kg, 165.1 cm) lg3 [place] Coma Score: 03/26 03:12 Eye Response: spontaneous(4). Motor Response: obeys commands(6). Verbal Response: sp4 oriented(5). Total: 15. ED Course: 03/25 20:10 Patient arrived in ED. jj6 20:12 Tunde Aguirre MD is Attending Physician. sp4 20:19 Triage completed. lg3 20:19 Arm band placed on right wrist. lg3 20:30 Inserted saline lock: 20 gauge in left forearm, using aseptic technique. vc1 20:32 Keisha Marroquin RN is Primary Nurse. vc1 20:52 Patient has correct armband on for positive identification. Bed in low position. vc1 threat monitoring analyst on. Pulse ox on. NIBP on. 22:13 Yane Stratton MD is Referral Physician. sp4 22:21 Assist provider with nosebleed control using rhino rocket placed for extensive packing vc1 needs, Bleeding from left nare. Set up for procedure. Performed by Tunde Aguirre MD Bleeding stopped. Patient tolerated well. IV discontinued, intact, bleeding controlled, No redness/swelling at site. Pressure dressing applied. 22:22 Provided Education on: F/U with ENT in 3 days. vc1 Administered Medications: 20:33 Drug: Ondansetron IVP 8 mg IVP once; over 2 minutes Route: IVP; Site: left antecubital; vc1 22:19 Follow up: Response: No adverse reaction; Marked relief of symptoms vc1 21:45 Drug: morphine IVP or IV 4 mg IVP once over 4 mins Route: IVP; Infused Over: 4 mins; vc1 Site: left forearm; 22:19 Follow up: Response: No adverse reaction; Marked relief of symptoms vc1 21:45 Drug: Ketorolac IVP 30 mg IVP once Route: IVP; Site: right forearm; vc1 22:19 Follow up: Response: No adverse reaction; Marked relief of symptoms vc1 22:33 Drug: Acetaminophen-Codeine PO (300 mg-30 mg) 2 tabs PO once; RASS on ADMIN: Combtv4, vc1 Very Agttd3, Agttd2, Rstlss1, AlertClm0, Drwsy-1, Lt Sdtn-2, Mod Sdtn-3, Dp Sdtn-4, UnArsble-5 Route: PO; 22:33 Follow up: Response: Medication administered at discharge. vc1 Medication: 20:53 VIS not applicable for this client. vc1 Outcome: 22:14 Discharge ordered by . sp4 22:21 Discharged to home ambulatory, with significant other, vc1 22:21 Condition: good 22:21 Discharge instructions given to patient, Instructed on discharge instructions, follow up and referral plans. medication usage, Demonstrated understanding of instructions, follow-up care, medications, Prescriptions given X 1, 22:34 Patient left the ED. vc1 Signatures: Karen John RN RN lg3 Lauryn Miranda jj6 Keisha Marroquin RN RN vc1 Tunde Aguirre MD MD sp4
--- NOTE | 2024-03-25 22:15 | EDPHYS ---
Physician Documentation [facility] Name: Danita Soto Age: 68 yrs Sex: Female : 1955 Arrival Date: 03/25/2024 Time: 20:09 Bed 3 Private MD: ED Physician Tunde Aguirre HPI: 03/25 22:13 This 68 yrs old Female presents to ER via Wheelchair with complaints of Nose sp4 Bleed. 03/26 03:12 68-year-old female presents with acute left-sided epistaxis associated with blood sp4 streaming down her throat. . Historical: - Allergies: 03/25 20:19 No Known Allergies; lg3 - Home Meds: 20:19 olmesartan-hydrochlorothiazide 40-25 mg Oral tablet daily [Active]; lg3 - PMHx: 20:19 Hypertensive disorder; lg3 - PSHx: 20:19 Total abdominal hysterectomy; pelvic floor; Ligation of fallopian tube; lg3 - Immunization history:: Adult Immunizations up to date. - Infectious Disease History:: Denies. - Social history:: Smoking status: Patient denies any tobacco usage or history of. Patient/guardian denies using alcohol, street drugs. - Family history:: not pertinent. ROS: 03/26 03:12 Constitutional: Negative for fever, chills, and weight loss, ENT: Positive epistaxis sp4 left-sided All other systems are negative, Exam: 03:12 Constitutional: This is a well developed, well nourished patient who is awake, alert, sp4 and in no acute distress. Head/Face: Normocephalic, atraumatic. Eyes: Pupils equal round and reactive to light, extra-ocular motions intact. Lids and lashes normal. Conjunctiva and sclera are not injected. Cornea within normal limits. Periorbital areas with no swelling, redness, or edema. ENT: Tympanic membranes are normal and external auditory canals are clear. Oropharynx with no redness, swelling, or masses, exudates, or evidence of obstruction, uvula midline. Mucous membranes moist. Positive for significant epistaxis left nostril with posterior drainage of blood in the pharynx Neck: Trachea midline, no thyromegaly or masses palpated, and no cervical lymphadenopathy. Supple, full range of motion without nuchal rigidity, or vertebral point tenderness. Chest/axilla: Normal chest wall appearance and motion. Nontender with no deformity. No lesions are appreciated. Cardiovascular: Regular rate and rhythm with a normal S1 and S2. No gallops, murmurs, or rubs. Normal PMI, no JVD. No pulse deficits. Respiratory: Lungs have equal breath sounds bilaterally, clear to auscultation and percussion. No rales, rhonchi or wheezes noted. No increased work of breathing, no retractions or nasal flaring. Abdomen/GI: Soft, with normal bowel sounds. No distension or tympany. No guarding or rebound. No evidence of tenderness throughout. Back: No spinal tenderness. No costovertebral tenderness. Skin: Warm, dry with normal turgor. Normal color with no rashes, no lesions, and no evidence of cellulitis. MS/ Extremity: Pulses equal, no cyanosis. Neurovascular intact. Full, normal range of motion. Neuro: Awake and alert, GCS 15, oriented to person, place, time, and situation. Cranial nerves II-XII grossly intact. Motor strength 5/5 in all extremities. Sensory grossly intact. Psych: Awake, alert, with orientation to person, place and time. Behavior, mood, and affect are within normal limits Vital Signs: 03/25 20:17 BP 155 / 85; Pulse 83; Resp 17 S; Temp 98.1(O); Pulse Ox 96% on R/A; Weight 82.55 kg lg3 (R); Height 5 ft. 5 in. (R); 20:54 BP 126 / 76; Pulse 74; Resp 16; Pulse Ox 95% ; vc1 22:20 BP 127 / 78; Pulse 76; Resp 17; Pulse Ox 93% ; vc1 20:17 Body Mass Index 30.29 (82.55 kg, 165.1 cm) lg3 [place] Coma Score: 03/26 03:12 Eye Response: spontaneous(4). Motor Response: obeys commands(6). Verbal Response: sp4 oriented(5). Total: 15. Procedures: 03:12 Epistaxis treatment: Copious amount of bleeding noted from left nare. Treated using sp4 rhino rocket, Bleeding stopped. Left Rhino Rocket was placed with resolution of epistaxis.. MDM: 03/25 20:13 Patient medically screened. sp4 03/26 03:12 Differential diagnosis: nasal fracture, trauma, sinusitis, epistaxis r/t trauma, sp4 spontaneous epistaxis. Data reviewed: vital signs, nurses notes, lab test result(s), CBC, hepatic panel. Consideration of Admission/Observation Escalation of care including admission/observation considered. ED course: Epistaxis resolved after a left-sided Rhino Rocket. Patient advised to see ENT in 2 days on Monday03/27/2024. Tylenol No. 4 prescribed as needed for pain... 03/25 20:13 Order name: CBC with Diff; Complete Time: 22:13 sp4 03/25 20:13 Order name: PT-INR; Complete Time: 22:13 sp4 03/25 20:13 Order name: Ptt, Activated; Complete Time: 22:13 sp4 03/25 20:13 Order name: CMP; Complete Time: 22:13 sp4 03/25 20:13 Order name: Saline Lock; Complete Time: 20:44 sp4 Administered Medications: 03/25 20:33 Drug: Ondansetron IVP 8 mg IVP once; over 2 minutes Route: IVP; Site: left antecubital; vc1 22:19 Follow up: Response: No adverse reaction; Marked relief of symptoms vc1 21:45 Drug: morphine IVP or IV 4 mg IVP once over 4 mins Route: IVP; Infused Over: 4 mins; vc1 Site: left forearm; 22:19 Follow up: Response: No adverse reaction; Marked relief of symptoms vc1 21:45 Drug: Ketorolac IVP 30 mg IVP once Route: IVP; Site: right forearm; vc1 22:19 Follow up: Response: No adverse reaction; Marked relief of symptoms vc1 22:33 Drug: Acetaminophen-Codeine PO (300 mg-30 mg) 2 tabs PO once; RASS on ADMIN: Combtv4, vc1 Very Agttd3, Agttd2, Rstlss1, AlertClm0, Drwsy-1, Lt Sdtn-2, Mod Sdtn-3, Dp Sdtn-4, UnArsble-5 Route: PO; 22:33 Follow up: Response: Medication administered at discharge. vc1 Disposition Summary: 03/25/24 22:14 Discharge Ordered Problem: new sp4 Symptoms: are resolved sp4 Condition: Stable sp4 Diagnosis - Epistaxis sp4 - acute posterior epistaxis sp4 Followup: sp4 - With: Yane Stratton MD - When: 2 - 3 days - Reason: Recheck today's complaints Discharge Instructions: - Discharge Summary Sheet sp4 - Nosebleed, Adult, [id number] sp4 Forms: - Patient Portal Instructions sp4 Prescriptions: - acetaminophen-codeine 300-60 mg Oral tablet - take 1 tablet ORAL route every 4 hours PRN pain; 30 tablet; Refills: 0, Product sp4 Selection Permitted Signatures: Dispatcher [employer] Karen Luna RN RN lg3 Keisha Marroquin RN RN vc1 Tunde Aguirre MD MD sp4
[2024-03-25] MEDS ORDERED: CODEINE 30MG/APAP 300MG TAB ONE (22:29)
[2024-03-25 23:32] VITALS: BP 127/78; TEMP 98.1; O2SAT 93
== END 2024-03-25 22:34 | disposition home or self-care (01) ==
LOC: ER 20:09
DX: R04.0 Epistaxis (principal)
CPT/HCPCS: 30901; 85025; 36415; 85610; 85730; 80053; 99285; J2405

== ENCOUNTER 2024-03-29 08:43 | Emergency (ER) | payer OTHER ==
--- OUTSIDE RECORDS SUMMARY | 2024-03-29 08:46 | XMS REPORT | Continuity of Care Document ---
Author Name Unknown Address [address] [place] [address] [facility] Address [address] [place] [address] Care Team Providers Care Bill Clerk Name Role Phone Robby Ugalde Attending Clinician Unavailable [email or web address]_Kadiyala_S Attending Clinician Unavaila ble SISSON_C Attending Clinician Unavailable Yobany Antoine Attending Clinician [phone] Robby Ugalde Admitting Clinician Unavailable [email or web address]_Kadiyala_S Admitting Clinician Unavaila ble SISSON_C Admitting Clinician Unavailable Payers Payer Name Policy Type Policy Number Effective Date Expirati on Date Source [place] [employer] [id number] 2021 00:00:00 CHAYO IBRAHIM FIORELLA (MEDICARE SUPPLEMENT) [id number] 2021 00:00:00 [place] [id number] Plan of Care Planned Activity Planned Date Details Comments Source Diagnostic Test Pending 2020-11-17 00:00:00 COVID-19 RNA (SARS-CoV-2), QL, occupational therapist home based-PCR, 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 [code = COVID-19 RNA (SARS-CoV-2), QL, occupational therapist home based-PCR, 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] [facility] Diagnostic Test Pending 2020-11-17 00:00:00 COVID-19 RNA (SARS-CoV-2), QL, occupational therapist home based-PCR, 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 [code = COVID-19 RNA (SARS-CoV-2), QL, occupational therapist home based-PCR, 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] [facility] Diagnostic Test Pending 2020-11-17 00:00:00 rapid SARS CoV 2 Ag, QL IA, 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 [code = rapid SARS CoV 2 Ag, QL IA, 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] [facility] Encounters Start Date/Time End Date/Time Encounter Type Admission Type Attending Clinicians Care Facility Care Department Encounter ID Source 2024-03-25 15:38[id number] [facility] 2023-08-15 08:54:01 Outpatient [facility]gal[facility] [id number] [facility] 2023-09-12 00:00:00 2023-09-12 00:00:00 Outpatient GC_GCBZW_Ka diyala_S PRIV PRIV [id number] [facility] 2023-08-09 00:00:00 2023-08-09 00:00:00 Outpatient GC_GCBZW_Ka diyala_S PRIV PRIV [id number] [facility] 2023-07-04 00:00:00 2023-07-04 00:00:00 Outpatient GC_GCBZW_Ka diyala_S PRIV PRIV [id number] [facility] 2023-05-08 00:00:00 2023-05-08 00:00:00 Outpatient GC_GCBZW_Ka diyala_S PRIV PRIV [id number] [facility] 2023-05-03 00:00:00 2023-05-03 00:00:00 Outpatient GC_GCBZW_Ka diyala_S PRIV PRIV [id number] [facility] 2020-11-18 11:49:00 2020-11-18 11:49:00 Outpatient SISSON_Breezy [facility] [id number] [facility] 2020-11-17 05:55:00 2020-11-17 05:55:00 Outpatient ROGERS_Breezy [facility] [address] [facility] 2020-11-17 00:00:00 2020-11-17 00:00:00 Outpatient Yobany Antoine [facility] [id number] 2020-11-17 00:00:00 2020-11-17 00:00:00 Yobany Antoine, MSN, CABLE MOCK UP ASSEMBLER, MEN'S DESIGNER-C: [address], [address], [place] [address] , Ph. [facility] - [facility] [place], Yobany Antoine, MSN, MEN'S DESIGNER-C [id number] [facility] Results Test Description Test Time Test Comments Results Result Co mments Source [facility]
[2024-03-29] MEDS ORDERED: NA CHLORIDE 0.9% 1,000 ML ONE (10:22)
--- NOTE | 2024-03-29 11:18 | ER ---
Nurse's Notes [facility] Name: Danita Soto Age: 68 yrs Sex: Female : 1955 Arrival Date: 03/29/2024 Time: 08:43 Bed 4 Private MD: Diagnosis: Epistaxis;Essential (primary) hypertension Presentation: 03/29 08:53 Chief complaint: Patient states: Seen here for nose bleed Monday, balloon inserted to rs5 left nostril and followed up with EENT Monday. Balloon removed and dissolvable gauze inserted to both nostrils. Nose started bleeding again this morning, denies pain. Coronavirus screen: At this time, the client does not indicate any symptoms associated with coronavirus-19. Ebola Screen: No symptoms or risks identified at this time. Initial Sepsis Screen: Does the patient meet any 2 criteria? No. Patient's initial sepsis screen is negative. Does the patient have a suspected source of infection? No. Patient's initial sepsis screen is negative. Risk Assessment: Do you want to hurt yourself or someone else? Patient reports no desire to harm self or others. Onset of symptoms was March 29, 2024. 08:53 Method Of Arrival: Ambulatory rs5 08:53 Acuity: LOBITO 3 rs5 Historical: - Allergies: 08:56 No Known Allergies; rs5 - Home Meds: 09:44 olmesartan-hydrochlorothiazide 40-25 mg Oral tablet daily [Active]; hb - PMHx: 08:56 Hypertensive disorder; rs5 - PSHx: 08:56 Ligation of fallopian tube; pelvic floor; Total abdominal hysterectomy; rs5 - Immunization history:: Adult Immunizations up to date. - Infectious Disease History:: Denies. - Social history:: Smoking status: Patient denies any tobacco usage or history of. - Family history:: not pertinent. Screenin:47 [facility] ED Fall Risk Assessment (Adult) History of falling in the last 3 months, rs5 including since admission No falls in past 3 months (0 pts) Confusion or Disorientation No (0 pts) Intoxicated or Sedated No (0 pts) Impaired Gait No (0 pts) Mobility Assist Device Used No (0 pt) Altered Elimination No (0 pt) Score/Fall Risk Level 0 - 2 = Low Risk Oriented to surroundings, Maintained a safe environment. Abuse screen: Denies threats or abuse. Nutritional screening: No deficits noted. Tuberculosis screening: No symptoms or risk factors identified. Assessment: 08:50 General: Appears in no apparent distress. comfortable, Behavior is calm, cooperative. rs5 Pain: Denies pain. Neuro: Level of Consciousness is awake, alert, obeys commands, Oriented to person, place, time, situation. Cardiovascular: Patient's skin is warm and dry. Rhythm is regular. Respiratory: Airway is patent Respiratory effort is even, unlabored, Respiratory pattern is regular, symmetrical. GI: Abdomen is round non-distended, Abd is soft and non tender X 4 quads. : No signs and/or symptoms were reported regarding the genitourinary system. EENT: Nares mild bleeding noted from nares bilat. Derm: Skin is intact, Skin is pink, warm \T\ dry. Musculoskeletal: Range of motion: intact in all extremities. 11:15 Reassessment: nose clamps applied to nose, bleeding stopped, provider notified. rs5 11:16 Reassessment: Patient and/or family updated on plan of care and expected duration. Pain rs5 level reassessed. Patient is alert, oriented x 3, equal unlabored respirations, skin warm/dry/pink. Vital Signs: 08:53 BP 168 / 72; Pulse 77; Resp 17; Temp 97.8(O); Pulse Ox 99% ; rs5 11:18 BP 138 / 77; Pulse 70; Resp 17; Pulse Ox 99% on R/A; rs5 ED Course: 08:44 Patient arrived in ED. rg4 08:47 Patient has correct armband on for positive identification. Bed in low position. Call rs5 light in reach. Side rails up X2. 08:48 Benjamín Burgos, RN is Primary Nurse. rs5 08:56 Triage completed. rs5 09:10 Oliver Fowler MD is Attending Physician. amanda 09:45 Arm band placed on. hb 10:15 Inserted saline lock: 22 gauge in left hand, using aseptic technique. rs5 10:15 No provider procedures requiring assistance completed. rs5 11:17 Yane Stratton MD is Referral Physician. aamnda 11:17 Referral Physician role handed off by Yane Stratton MD amanda 11:17 Vy Cantu MD is Referral Physician. amanda 11:30 IV discontinued, intact, bleeding controlled, No redness/swelling at site. Pressure rs5 dressing applied. Administered Medications: 10:20 Drug: NS 0.9% IV 1000 ml IV at 125 ml/hr continuous Route: IV; Rate: 125 ml/hr; Site: rs5 left hand; 10:40 Follow up: Response: No adverse reaction rs5 Medication: 13:39 VIS not applicable for this client. rs5 Outcome: 11:17 Discharge ordered by . amanda 11:30 Discharged to home via wheelchair, rs5 11:30 Condition: stable 11:30 Discharge instructions given to patient, family, Instructed on discharge instructions, follow up and referral plans. Demonstrated understanding of instructions, follow-up care, 11:33 Patient left the ED. rs5 Signatures: Oliver Fowler MD MD cha Baxter, Heather, RN RN Jenniffer Singh rg4 Benjamín Burgos RN RN rs5 Corrections: (The following items were deleted from the chart) 11:16 11:13 General: Appears in no apparent distress. comfortable, Behavior is calm, rs5 cooperative, rs5 11:16 11:13 Pain: Denies pain. rs5 rs5 11:16 11:13 Neuro: Level of Consciousness is awake, alert, obeys commands, Oriented to rs5 person, place, time, situation, rs5 11:16 11:13 Cardiovascular: Patient's skin is warm and dry. Rhythm is regular rs5 rs5 11:16 11:13 Respiratory: Airway is patent Respiratory effort is even, unlabored, Respiratory rs5 pattern is regular, symmetrical, rs5 11:16 11:13 GI: Abdomen is round non-distended, Abd is soft and non tender X 4 quads. rs5 rs5 11:16 11:13 : No signs and/or symptoms were reported regarding the genitourinary system. rs5rs5 11:16 11:13 Derm: Skin is intact, Skin is pink, warm \T\ dry. rs5 rs5 11:16 11:13 Musculoskeletal: Range of motion: intact in all extremities, rs5 rs5 11:16 11:13 EENT: Nares mild bleeding noted from nares bilat. rs5 rs5 13:39 10:01 BP 138 / 77; Pulse 70bpm; Resp 17bpm; Pulse Ox 99% RA; rs5 rs5
--- NOTE | 2024-03-29 11:18 | EDPHYS ---
Physician Documentation [facility] Name: Danita Soto Age: 68 yrs Sex: Female : 1955 Arrival Date: 03/29/2024 Time: 08:43 Bed 4 Private MD: ED Physician Oliver Fowler HPI: 03/29 10:15 This 68 yrs old Female presents to ER via Ambulatory with complaints of Nose amanda Bleed. 10:15 The patient presents with a nose bleed, that is apparently anterior, occurred from an amanda unknown cause. Onset: The symptoms/episode began/occurred this morning. Modifying factors: The symptoms are alleviated by nothing. the symptoms are aggravated by nothing. Associated signs and symptoms: The patient has no apparent associated signs or symptoms. Severity of symptoms: At their worst the symptoms were mild moderate in the emergency department the symptoms have resolved. The patient has experienced similar episodes in the past, several times. Historical: - Allergies: 08:56 No Known Allergies; rs5 - Home Meds: 09:44 olmesartan-hydrochlorothiazide 40-25 mg Oral tablet daily [Active]; hb - PMHx: 08:56 Hypertensive disorder; rs5 - PSHx: 08:56 Ligation of fallopian tube; pelvic floor; Total abdominal hysterectomy; rs5 - Immunization history:: Adult Immunizations up to date. - Infectious Disease History:: Denies. - Social history:: Smoking status: Patient denies any tobacco usage or history of. - Family history:: not pertinent. ROS: 10:15 Constitutional: Negative for fever, chills, and weight loss, Eyes: Negative for injury, amanda pain, redness, and discharge, Neck: Negative for injury, pain, and swelling, Cardiovascular: Negative for chest pain, palpitations, and edema, Respiratory: Negative for shortness of breath, cough, wheezing, and pleuritic chest pain, Abdomen/GI: Negative for abdominal pain, nausea, vomiting, diarrhea, and constipation, Back: Negative for injury and pain, : Negative for injury, bleeding, discharge, and swelling, MS/Extremity: Negative for injury and deformity, Skin: Negative for injury, rash, and discoloration, Neuro: Negative for headache, weakness, numbness, tingling, and seizure, 10:15 ENT: Positive for nose bleed, Exam: 10:15 Constitutional: This is a well developed, well nourished patient who is awake, alert, amanda and in no acute distress. Head/Face: Normocephalic, atraumatic. Eyes: Pupils equal round and reactive to light, extra-ocular motions intact. Lids and lashes normal. Conjunctiva and sclera are non-icteric and not injected. Cornea within normal limits. Periorbital areas with no swelling, redness, or edema. Neck: Trachea midline, no thyromegaly or masses palpated, and no cervical lymphadenopathy. Supple, full range of motion without nuchal rigidity, or vertebral point tenderness. No Meningismus. Chest/axilla: Normal chest wall appearance and motion. Nontender with no deformity. No lesions are appreciated. Cardiovascular: Regular rate and rhythm with a normal S1 and S2. No gallops, murmurs, or rubs. Normal PMI, no JVD. No pulse deficits. Respiratory: Lungs have equal breath sounds bilaterally, clear to auscultation and percussion. No rales, rhonchi or wheezes noted. No increased work of breathing, no retractions or nasal flaring. Abdomen/GI: Soft, non-tender, with normal bowel sounds. No distension or tympany. No guarding or rebound. No evidence of tenderness throughout. Back: No spinal tenderness. No costovertebral tenderness. Full range of motion. Skin: Warm, dry with normal turgor. Normal color with no rashes, no lesions, and no evidence of cellulitis. MS/ Extremity: Pulses equal, no cyanosis. Neurovascular intact. Full, normal range of motion. Neuro: Awake and alert, GCS 15, oriented to person, place, time, and situation. Cranial nerves II-XII grossly intact. Motor strength 5/5 in all extremities. Sensory grossly intact. Cerebellar exam normal. Normal gait. Psych: Awake, alert, with orientation to person, place and time. Behavior, mood, and affect are within normal limits. 10:15 ENT: Nose: External nose: no obvious acute abnormality, Nasal septum: is midline, Nasal mucosa: Dried blood. edematous, Posterior pharynx: is normal, airway is patent, no erythema, no exudate, no peritonsilar mass, no pooling of secretions, no swelling, Airway: normal, no evidence of obstruction, Tonsils: are normal in appearance, Uvula: normal, swelling, is not appreciated, erythema, is not appreciated, Vital Signs: 08:53 BP 168 / 72; Pulse 77; Resp 17; Temp 97.8(O); Pulse Ox 99% ; rs5 11:18 BP 138 / 77; Pulse 70; Resp 17; Pulse Ox 99% on R/A; rs5 MDM: 09:10 Patient medically screened. amanda 10:18 Differential diagnosis: epistaxis r/t trauma, spontaneous epistaxis. Data reviewed: [facility] vital signs, nurses notes, lab test result(s). Consideration of Admission/Observation Escalation of care including admission/observation considered. I considered the following discharge prescriptions or medication management in the emergency department Medications were administered in the Emergency Department. See MAR. Test considered but Not performed: X-ray: no xray, no ct. Historians other than the Patient: Spouse/Significant Other: well informed. Care significantly affected by the following chronic conditions: Hypertension. 03/29 10:15 Order name: IV Saline Lock - Large Bore; Complete Time: 11:13 amanda Administered Medications: 10:20 Drug: NS 0.9% IV 1000 ml IV at 125 ml/hr continuous Route: IV; Rate: 125 ml/hr; Site: rs5 left hand; 10:40 Follow up: Response: No adverse reaction rs5 Disposition Summary: 03/29/24 11:17 Discharge Ordered Notes: Location: Home amanda Problem: new amanda Symptoms: have improved amanda Condition: Stable amanda Diagnosis - Epistaxis amanda - Essential (primary) hypertension amanda Followup: amanda - With: Private Physician - When: 2 - 3 days - Reason: Recheck today's complaints, Continuance of care, Re-evaluation by your physician Followup: amanda - With: Yane Stratton MD - When: 2 - 3 days - Reason: Recheck today's complaints, Continuance of care, Re-evaluation by your physician Followup: amanda - With: Vy Cantu MD - When: Upon discharge from the Emergency Department - Reason: Recheck today's complaints, Re-evaluation by your physician Discharge Instructions: - Discharge Summary Sheet amanda - Nosebleed, Adult amanda - Hypertension, Adult amanda - Cool Mist Vaporizer amanda - Hypertension, Adult, [id number]-[id number] amanda - How to Take Your Blood Pressure, [id number] amanda - Nosebleed, Adult, [id number]-[id number] amanda - Managing Your Hypertension amanda Forms: - Medication Reconciliation Form amanda - Antibiotic Education amanda - Prescription Opioid Use amanda - Patient Portal Instructions amanda - Leadership Thank You Letter amanda Prescriptions: - Norvasc 5 mg Oral Tablet - take 1 tablet ORAL route once daily; 20 tablet; Refills: 0, Product Selection amanda Permitted Signatures: Oliver Fowler MD MD cha Baxter, Heather, RN RN Benjamín Burgos RN RN rs5
[2024-03-29 11:40] VITALS: BP 168/72; TEMP 97.8; O2SAT 99
== END 2024-03-29 11:33 | disposition home or self-care (01) ==
LOC: ER 08:43
DX: R04.0 Epistaxis (principal); I10 Essential (primary) hypertension
CPT/HCPCS: 99284; J7030

== ENCOUNTER 2024-03-29 12:06 | Observation (INO) | payer OTHER ==
--- OUTSIDE RECORDS SUMMARY | 2024-03-29 12:08 | XMS REPORT | Continuity of Care Document ---
Author Name Unknown Address [address] [facility] [address] [place] [address] [facility] Address [address] [facility] [place] [address] Care Team Providers Care Flying Teacher Name Role Phone Robby Ugalde Attending Clinician Unavailable GC_GCBZW_Kadiyala_S Attending Clinician Unavaila ble SISSON_C Attending Clinician Unavailable Yobany Antoine Attending Clinician [phone] Robby Ugalde Admitting Clinician Unavailable GC_GCBZW_Kadiyala_S Admitting Clinician Unavaila ble SISSON_C Admitting Clinician Unavailable Payers Payer Name Policy Type Policy Number Effective Date Expirati on Date Source [place]: [place]od[place] [id number] 2021 00:00:00 CHAOY IBRAHIM FIORELLA (MEDICARE SUPPLEMENT) [id number] 2021 00:00:00 [place] [id number] Plan of Care Planned Activity Planned Date Details Comments Source Diagnostic Test Pending 2020-11-17 00:00:00 COVID-19 RNA (SARS-CoV-2), QL, 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, 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 [code = COVID-19 RNA (SARS-CoV-2), QL, 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, 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] [facility] Diagnostic Test Pending 2020-11-17 00:00:00 COVID-19 RNA (SARS-CoV-2), QL, 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, 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 [code = COVID-19 RNA (SARS-CoV-2), QL, 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, 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] [facility] Diagnostic Test Pending 2020-11-17 00:00:00 rapid SARS CoV 2 Ag, QL IA, 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 [code = rapid SARS CoV 2 Ag, QL IA, 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] [facility] Encounters Start Date/Time End Date/Time Encounter Type Admission Type Attending Clinicians Care Facility Care Department Encounter ID Source 2024-03-25 15:38:00 [facility] [id number] [facility] 2023-08-15 08:54:01 Outpatient Robby Ugalde [facility] [id number] [facility] 2023-09-12 00:00:00 2023-09-12 00:00:00 Outpatient GC_GCBZW_Ka diyala_S PRIV PRIV [id number] [facility] 2023-08-09 00:00:00 2023-08-09 00:00:00 Outpatient GC_GCBZW_Ka diyala_S PRIV PRIV [id number] [facility] 2023-07-04 00:00:00 2023-07-04 00:00:00 Outpatient GC_GCBZW_Ka diyala_S PRIV PRIV [id number] [facility] 2023-05-08 00:00:00 2023-05-08 00:00:00 Outpatient GC_GCBZW_Ka diyala_S PRIV PRIV [id number] [facility] 2023-05-03 00:00:00 2023-05-03 00:00:00 Outpatient GC_GCBZW_Ka diyala_S PRIV PRIV [id number] [facility] 2020-11-18 11:49:00 2020-11-18 11:49:00 Outpatient SISSON_Breezy [facility] [id number] [facility] 2020-11-17 05:55:00 2020-11-17 05:55:00 Outpatient ROGERS_Breezy [facility] [id number] [facility] 2020-11-17 00:00:00 2020-11-17 00:00:00 Outpatient Yobany Antoine [facility] [id number] 2020-11-17 00:00:00 2020-11-17 00:00:00 Yobany Antoine, MSN, REED POLISHER, NET SQL DEVELOPER-C: [address], [address], [place] [address] , Ph. [facility] - [facility], Yobany Antoine, MSN, NET SQL DEVELOPER-C [id number] [facility] Results Test Description Test Time Test Comments Results Result Co mments Source [facility]
[2024-03-29] MEDS ORDERED: NA CHLORIDE 0.9% 1,000 ML ONE (12:27)
[2024-03-29] MEDS ORDERED: CEFAZOLIN SODIUM 1 GM/VIAL ONE (12:27)
[2024-03-29] MEDS ORDERED: NA CHLORIDE 0.9% 100 ML ONE (12:28)
[2024-03-29] MEDS ORDERED: LABETALOL 20 MG/4ML SYRINGE IV ONE (12:28)
[2024-03-29 12:29] LABS: Absolute Eosinophils 0.1 K/uL (0-0.5); Absolute Lymphocytes (CBC) 1.3 K/uL (0.7-4.9); Absolute Monocytes 0.3 K/uL (0.1-1.3); Absolute Neutrophil 4.1 K/uL (1.8-8.0); Basophils % 0.2 % (0-1.3); Eosinophils % 1.3 % (0-4.4); Hematocrit 41.9 % (36.0-45.0); Hemoglobin 13.7 g/dL (12.0-15.0); MCH 31.8 pg (27.0-35.0); MCHC 32.7 g/dL (32.0-36.0); MCV 97.4 fL (80-100); MPV 8.7 fL (7.6-11.3); Monocytes % 5.3 % (3.3-12.3); Neutrophils % 70.2 % (41.7-73.7); Platelets 233 thou/uL (152-406)
[2024-03-29 12:51] LABS: ALT/SGPT 31 U/L (13-56); AST/SGOT 16 U/L (15-37); Albumin 3.6 g/dL (3.4-5.0); Albumin/Globulin Ratio 0.9 (1.1-1.8); Alkaline Phosphatase 62 U/L (45-117); Anion Gap 7.5 mEq/L (5.0-15.0); BUN Blood Urea Nitrogen 22 mg/dL (7-18); Bicarbonate 31 mEq/L (21-32); Bilirubin Direct < 0.2 mg/dL (0-0.2); Bilirubin Indirect, Calculated 0.3 mg/dL (0.2-0.8); Bilirubin Total 0.5 mg/dL (0.2-1.0); Globulin 3.9 g/dL (2.3-3.5); Glomerular Filtration Rate 98 ml/min (=/>90); Glucose Level 100 mg/dL (74-106); NT PRO-BNP 37 pg/mL (<125); PT Prothrombin Time 11.3 SECONDS (9.5-12.5); Potassium 3.5 mEq/L (3.5-5.1); Protein, Total 7.5 g/dL (6.4-8.2); Protime INR 1.03; Sodium Level 139 mEq/L (136-145); Troponin High Sensitivity 7.8 pg/mL (<58.9)
[2024-03-29] MEDS ORDERED: FENTANYL CITR 100 MCG/2 ML ONE (12:51)
[2024-03-29] MEDS ORDERED: ONDANSETRON 4 MG/2 ML VIAL ONE (12:51)
--- NOTE | 2024-03-29 13:02 | EDPHYS ---
Physician Documentation [facility] Name: Danita Soto Age: 68 yrs Sex: Female : 1955 Arrival Date: 03/29/2024 Time: 12:06 Bed 4 Private MD: ED Physician Oliver Fowler HPI: 03/29 12:57 This 68 yrs old Female presents to ER via Unassigned with complaints of Nose Bleed. amanda 12:57 The patient presents with a nose bleed, that is apparently anterior, occurred from an [facility] unknown cause. Onset: The symptoms/episode began/occurred just prior to arrival, this morning. Modifying factors: The symptoms are alleviated by nothing. the symptoms are aggravated by nothing. Associated signs and symptoms: The patient has no apparent associated signs or symptoms, Loss of consciousness: the patient experienced no loss of consciousness. Severity of symptoms: At their worst the symptoms were moderate in the emergency department the symptoms are unchanged. The patient has experienced similar episodes in the past, several times. Historical: - Allergies: 13:00 No Known Allergies; rs5 - PMHx: 13:00 Hypertensive disorder; rs5 - PSHx: 13:00 Ligation of fallopian tube; pelvic floor; Total abdominal hysterectomy; rs5 - Immunization history:: Adult Immunizations up to date. - Infectious Disease History:: Denies. - Family history:: not pertinent. - Social history:: Smoking status: Patient denies any tobacco usage or history of. ROS: 12:57 Constitutional: Negative for fever, chills, and weight loss, Eyes: Negative for injury, amanda pain, redness, and discharge, Neck: Negative for injury, pain, and swelling, Cardiovascular: Negative for chest pain, palpitations, and edema, Respiratory: Negative for shortness of breath, cough, wheezing, and pleuritic chest pain, Abdomen/GI: Negative for abdominal pain, nausea, vomiting, diarrhea, and constipation, Back: Negative for injury and pain, : Negative for injury, bleeding, discharge, and swelling, MS/Extremity: Negative for injury and deformity, Skin: Negative for injury, rash, and discoloration, Neuro: Negative for headache, weakness, numbness, tingling, and seizure, Psych: Negative for depression, anxiety, suicide ideation, homicidal ideation, and hallucinations, Allergy/Immunology: Negative for hives, rash, and allergies, Endocrine: Negative for neck swelling, polydipsia, polyuria, polyphagia, and marked weight changes, Hematologic/Lymphatic: Negative for swollen nodes, abnormal bleeding, and unusual bruising, 12:57 ENT: Positive for nose bleed, Exam: 12:57 Constitutional: This is a well developed, well nourished patient who is awake, alert, amanda and in no acute distress. Head/Face: Normocephalic, atraumatic. Eyes: Pupils equal round and reactive to light, extra-ocular motions intact. Lids and lashes normal. Conjunctiva and sclera are non-icteric and not injected. Cornea within normal limits. Periorbital areas with no swelling, redness, or edema. Neck: Trachea midline, no thyromegaly or masses palpated, and no cervical lymphadenopathy. Supple, full range of motion without nuchal rigidity, or vertebral point tenderness. No Meningismus. Chest/axilla: Normal chest wall appearance and motion. Nontender with no deformity. No lesions are appreciated. Cardiovascular: Regular rate and rhythm with a normal S1 and S2. No gallops, murmurs, or rubs. Normal PMI, no JVD. No pulse deficits. Respiratory: Lungs have equal breath sounds bilaterally, clear to auscultation and percussion. No rales, rhonchi or wheezes noted. No increased work of breathing, no retractions or nasal flaring. Abdomen/GI: Soft, non-tender, with normal bowel sounds. No distension or tympany. No guarding or rebound. No evidence of tenderness throughout. Back: No spinal tenderness. No costovertebral tenderness. Full range of motion. Skin: Warm, dry with normal turgor. Normal color with no rashes, no lesions, and no evidence of cellulitis. MS/ Extremity: Pulses equal, no cyanosis. Neurovascular intact. Full, normal range of motion. Neuro: Awake and alert, GCS 15, oriented to person, place, time, and situation. Cranial nerves II-XII grossly intact. Motor strength 5/5 in all extremities. Sensory grossly intact. Cerebellar exam normal. Normal gait. Psych: Awake, alert, with orientation to person, place and time. Behavior, mood, and affect are within normal limits. 12:57 ENT: Nose: Nasal mucosa: edematous, erythematous, Turbinates: are normal, Posterior pharynx: is normal, no acute changes, Airway: normal, no evidence of obstruction, Tonsils: are normal in appearance, Uvula: normal, 13:11 ECG was reviewed by the Attending Physician. [facility] Vital Signs: 12:08 BP 160 / 88; Pulse 71; Resp 18; Temp 97.8(O); Pulse Ox 99% ; rs5 13:24 BP 166 / 81; Pulse 70; Resp 17; Pulse Ox 99% on R/A; rs5 15:30 BP 148 / 80; Pulse 71; Resp 17; Pulse Ox 99% on R/A; rs5 MDM: 12:10 Patient medically screened. [facility] 13:00 Differential diagnosis: spontaneous epistaxis. Data reviewed: vital signs, nurses [facility] notes, lab test result(s), EKG, radiologic studies, plain films. Consideration of Admission/Observation Patient was admitted/placed on observation. Escalation of care including admission/observation considered. I considered the following discharge prescriptions or medication management in the emergency department Medications were administered in the Emergency Department. See MAR. Independent interpretation of the following test(s) in the Emergency Department EKG: See my EKG interpretation above. Test considered but Not performed: CT: no ct head. Care significantly affected by the following chronic conditions: Hypertension. 03/29 12:11 Order name: Basic Metabolic Panel; Complete Time: 13:10 [facility] 03/29 12:11 Order name: CBC with Diff; Complete Time: 13:10 [facility] 03/29 12:11 Order name: LFT's; Complete Time: 13:10 [facility] 03/29 12:11 Order name: Magnesium; Complete Time: 13:10 [facility] 03/29 12:11 Order name: NT PRO-BNP; Complete Time: 13:10 [facility] 03/29 12:11 Order name: PT-INR; Complete Time: 13:10 [facility] 03/29 12:11 Order name: Troponin HS; Complete Time: 13:10 [facility] 03/29 12:11 Order name: Urinalysis w/ reflexes [facility] 03/29 12:11 Order name: XRAY Chest (1 view) [facility] 03/29 12:11 Order name: EKG; Complete Time: 12:12 [facility] 03/29 13:07 Order name: CONS Physician Consult EDMT 03/29 12:11 Order name: Cardiac monitoring; Complete Time: 12:29 [facility] 03/29 12:11 Order name: EKG - Nurse/Tech; Complete Time: 12:29 [facility] 03/29 12:11 Order name: IV Saline Lock; Complete Time: : [facility] 03/29 12:11 Order name: Labs collected and sent; Complete Time: : [facility] 03/29 12:11 Order name: O2 Per Protocol; Complete Time: 12:29 [facility] 03/29 12:11 Order name: O2 Sat Monitoring; Complete Time: 12:29 [facility] EC:11 Rate is 70 beats/min. Rhythm is regular. QRS [place] is Normal. NE interval is normal. QRS amanda interval is normal. QT interval is normal. No Q waves. T waves are Normal. No ST changes noted. Clinical impression: NSR w/ Non-specific ST/T Changes and No evidence of ischemia. Interpreted by me. Reviewed by me. Administered Medications: 12:59 Not Given (Patient Refused): [id number] mg IV at per protocol once rs5 12:59 Not Given (Patient Refused): [id number] mg IV at per protocol once rs5 13:00 Drug: NS 0.9% IV 1000 ml IV at 125 ml/hr continuous Route: IV; Rate: 125 ml/hr; Site: rs5 right antecubital; 13:20 Follow up: Response: No adverse reaction rs5 13:00 Drug: ceFAZolin IVPB 1 grams IVPB once Route: IVPB; Site: right antecubital; rs5 13:20 Follow up: Response: No adverse reaction rs5 13:00 Drug: fentaNYL (PF) IVP 25 mcg IVP once Route: IVP; Site: right antecubital; rs5 13:15 Follow up: Response: No adverse reaction; Pain is unchanged, physician notified rs5 13:00 Drug: Ondansetron IVP 4 mg IVP once; over 2 minutes Route: IVP; Site: right antecubital;rs5 13:15 Follow up: Response: No adverse reaction rs5 13:01 Drug: fentaNYL (PF) IVP 25 mcg IVP once Route: IVP; Site: right antecubital; rs5 13:15 Follow up: Response: No adverse reaction; Pain is unchanged, physician notified rs5 13:20 Drug: morphine IVP or IV 2 mg IVP once over 4 mins Route: IVP; Infused Over: 4 mins; rs5 Site: right antecubital; 13:36 Follow up: Response: Pain is decreased rs5 13:20 Drug: morphine IVP or IV 2 mg IVP once over 4 mins Route: IVP; Infused Over: 4 mins; rs5 Site: right antecubital; 13:36 Follow up: Response: Pain is decreased rs5 14:12 Drug: Norvasc PO 5 mg PO once Route: PO; rs5 15:00 Follow up: Response: No adverse reaction rs5 Disposition Summary: 03/29/24 13:01 Hospitalization Ordered Notes: Hospitalization Status: Observation amanda Provider: Harpreet Ugalde cha Location: Telemetry/MedSurg (observation) amanda Condition: Stable amanda Problem: new amanda Symptoms: have improved amanda Bed/Room Type: Standard amanda Room Assignment: 203(03/29/24 14:43) eb Diagnosis - Essential (primary) hypertension amanda - Epistaxis amanda Forms: - Medication Reconciliation Form amanda - SBAR form amanda - Leadership Thank You Letter amanda Signatures: Dispatcher [employer] EDMS Oliver Fowler MD MD cha Botello, Elizabeth eb Sotelo, Ricky, RN RN rs5 Corrections: (The following items were deleted from the chart) 12:12 12:12 BASIC METABOLIC PANEL+C.LAB.BRZ ordered. EDMS EDMS 12:12 12:12 CBC+H.LAB.BRZ ordered. EDMS EDMS 12:12 12:12 HEPATIC FUNCTION+C.LAB.BRZ ordered. EDMS EDMS 12:12 12:12 MAGNESIUM+C.LAB.BRZ ordered. EDMS EDMS 12:12 12:12 PROBNP+C.LAB.BRZ ordered. EDMS EDMS 12:12 12:12 PROTIME (+INR)+COAG.LAB.BRZ ordered. EDMS EDMS 12:12 12:12 Troponin High Sensitivity+C.LAB.BRZ ordered. EDMS EDMS 12:12 12:12 Urinalysis+U.LAB.BRZ ordered. EDMS EDMS 14:43 13:01 amanda adams
--- NOTE | 2024-03-29 13:02 | ER ---
Nurse's Notes [facility] Name: Danita Soto Age: 68 yrs Sex: Female : 1955 Arrival Date: 03/29/2024 Time: 12:06 Bed 4 Private MD: Diagnosis: Essential (primary) hypertension;Epistaxis Presentation: 03/29 12:08 Chief complaint: Patient states: Seen here on Monday for persistent nose bleed, rs5 discharged and followed up with NT Monday, bleeding stopped, nose bleed started again this AM. Pt was discharged one hour prior to arrival and visited [facility], instructed to return to ER for continued bleeding. pt reports 9/10 pain to nose at this moment. 12:08 Coronavirus screen: At this time, the client does not indicate any symptoms associated rs5 with coronavirus-19. Ebola Screen: No symptoms or risks identified at this time. Initial Sepsis Screen: Does the patient meet any 2 criteria? No. Patient's initial sepsis screen is negative. Does the patient have a suspected source of infection? No. Patient's initial sepsis screen is negative. Risk Assessment: Do you want to hurt yourself or someone else? Patient reports no desire to harm self or others. Onset of symptoms was March 25, 2024. 12:08 Method Of Arrival: Ambulatory rs5 12:08 Acuity: LOBITO 3 rs5 Historical: - Allergies: 13:00 No Known Allergies; rs5 - PMHx: 13:00 Hypertensive disorder; rs5 - PSHx: 13:00 Ligation of fallopian tube; pelvic floor; Total abdominal hysterectomy; rs5 - Immunization history:: Adult Immunizations up to date. - Infectious Disease History:: Denies. - Family history:: not pertinent. - Social history:: Smoking status: Patient denies any tobacco usage or history of. Screenin:08 [facility] ED Fall Risk Assessment (Adult) History of falling in the last 3 months, rs5 including since admission No falls in past 3 months (0 pts) Confusion or Disorientation No (0 pts) Intoxicated or Sedated No (0 pts) Impaired Gait No (0 pts) Mobility Assist Device Used No (0 pt) Altered Elimination No (0 pt) Score/Fall Risk Level 0 - 2 = Low Risk Oriented to surroundings, Maintained a safe environment. Abuse screen: Denies threats or abuse. Nutritional screening: No deficits noted. Tuberculosis screening: No symptoms or risk factors identified. Assessment: 12:08 General: Appears in no apparent distress. uncomfortable, Behavior is calm, cooperative. rs5 Pain: Complains of pain in nose Pain currently is 9 out of 10 on a pain scale. Quality of pain is described as aching, Is continuous. Neuro: Level of Consciousness is awake, alert, obeys commands, Oriented to person, place, time, situation. Cardiovascular: Rhythm is regular. Respiratory: Airway is patent Respiratory effort is even, unlabored, Respiratory pattern is regular, symmetrical. GI: Abdomen is round non-distended, Abd is soft and non tender X 4 quads. : No signs and/or symptoms were reported regarding the genitourinary system. EENT: No signs and/or symptoms were reported regarding the EENT system. Derm: Skin is intact, Skin is pink, warm \T\ dry. Musculoskeletal: Range of motion: intact in all extremities. 13:24 Reassessment: Patient and/or family updated on plan of care and expected duration. Pain rs5 level reassessed. Patient is alert, oriented x 3, equal unlabored respirations, skin warm/dry/pink. 14:10 Reassessment: No changes from previously documented assessment. rs5 15:40 Reassessment: Patient and/or family updated on plan of care and expected duration. Pain rs5 level reassessed. Patient is alert, oriented x 3, equal unlabored respirations, skin warm/dry/pink. Vital Signs: 12:08 BP 160 / 88; Pulse 71; Resp 18; Temp 97.8(O); Pulse Ox 99% ; rs5 13:24 BP 166 / 81; Pulse 70; Resp 17; Pulse Ox 99% on R/A; rs5 15:30 BP 148 / 80; Pulse 71; Resp 17; Pulse Ox 99% on R/A; rs5 ED Course: 12:06 Patient arrived in ED. rg4 12:08 No provider procedures requiring assistance completed. rs5 12:10 Benjamín Burgos, THA is Primary Nurse. rs5 12:10 Oliver Fowler MD is Attending Physician. amanda 12:29 Basic Metabolic Panel Sent. jg11 12:29 CBC with Diff Sent. jg11 12:29 LFT's Sent. jg11 12:29 Magnesium Sent. jg11 12:29 NT PRO-BNP Sent. jg11 12:29 PT-INR Sent. jg11 12:29 Troponin HS Sent. jg1 12:29 Initial lab(s) drawn, by me, sent to lab. EKG done, by ED staff, reviewed by Oliver Fowler MD. Inserted saline lock: 20 gauge in right antecubital area, using aseptic technique. Blood collected. 12:30 Patient has correct armband on for positive identification. Placed in gown. Bed in low jg11 position. Call light in reach. Side rails up X 1. Warm blanket given. Pillow given. Client placed on continuous cardiac and pulse oximetry monitoring. NIBP monitoring applied. bus driver/monitor on. Pulse ox on. NIBP on. 13:01 Harpreet Ugalde MD is Hospitalizing Provider. [facility] 13:03 XRAY Chest (1 view) In Process Unspecified. EDMS 13:04 Triage completed. rs5 15:40 IV discontinued, intact, bleeding controlled, No redness/swelling at site. Pressure rs5 dressing applied. Administered Medications: 12:59 Not Given (Patient Refused): [id number] mg IV at per protocol once rs5 12:59 Not Given (Patient Refused): eisfashjx07 mg IV at per protocol once rs5 13:00 Drug: NS 0.9% IV 1000 ml IV at 125 ml/hr continuous Route: IV; Rate: 125 ml/hr; Site: rs5 right antecubital; 13:20 Follow up: Response: No adverse reaction rs5 13:00 Drug: ceFAZolin IVPB 1 grams IVPB once Route: IVPB; Site: right antecubital; rs5 13:20 Follow up: Response: No adverse reaction rs5 13:00 Drug: fentaNYL (PF) IVP 25 mcg IVP once Route: IVP; Site: right antecubital; rs5 13:15 Follow up: Response: No adverse reaction; Pain is unchanged, physician notified rs5 13:00 Drug: Ondansetron IVP 4 mg IVP once; over 2 minutes Route: IVP; Site: right antecubital;rs5 13:15 Follow up: Response: No adverse reaction rs5 13:01 Drug: fentaNYL (PF) IVP 25 mcg IVP once Route: IVP; Site: right antecubital; rs5 13:15 Follow up: Response: No adverse reaction; Pain is unchanged, physician notified rs5 13:20 Drug: morphine IVP or IV 2 mg IVP once over 4 mins Route: IVP; Infused Over: 4 mins; rs5 Site: right antecubital; 13:36 Follow up: Response: Pain is decreased rs5 13:20 Drug: morphine IVP or IV 2 mg IVP once over 4 mins Route: IVP; Infused Over: 4 mins; rs5 Site: right antecubital; 13:36 Follow up: Response: Pain is decreased rs5 14:12 Drug: Norvasc PO 5 mg PO once Route: PO; rs5 15:00 Follow up: Response: No adverse reaction rs5 Medication: 13:25 VIS not applicable for this client. rs5 Outcome: 13:01 Decision to Hospitalize by Provider. amanda 15:40 Discharged to home ambulatory, rs5 15:40 Condition: stable rs5 15:40 Instructed on the need for admit, Demonstrated understanding of instructions, 15:47 Patient left the ED. hb Signatures: Dispatcher [employer] Oliver Ortez MD MD cha Baxter, Heather, RN RN Jenniffer Singh rg4 Benjamín Burgos RN RN rs5 Cory Garcia jg11
--- NOTE | 2024-03-29 13:14 | RAD REPORT ---
EXAM DESCRIPTION: RAD - Chest Single View - 03/29/2024 1:01 pm CLINICAL HISTORY: COUGH Chest pain. COMPARISON: Abdomen 1 View (KUB) dated 02/29/2024 FINDINGS: Portable technique limits examination quality. The lungs are grossly clear. The heart is normal in size. No displaced fractures.Moderate dextroscoli osis of the thoracic spine. IMPRESSION: No acute intrathoracic process suspected.
[2024-03-29] MEDS ORDERED: MORPHINE 4 MG/ML SYR ONE (13:33)
[2024-03-29] MEDS ORDERED: AMLODIPINE 5 MG TAB ONE (14:23)
[2024-03-29 14:29] LABS: Specific Gravity 1.013 (1.005-1.030); Sqamous Epithelial <5 /HPF (None Seen); Urine Bacteria None Seen /HPF (<20); Urine Bilirubin NEGATIVE (Negative); Urine Blood Negative (Negative); Urine Clarity Clear (Clear); Urine Color Colorless (Yellow); Urine Culture Reflex Order NOT NEEDED; Urine Glucose NEGATIVE (Negative); Urine Ketones NEGATIVE (Negative); Urine Microscopic Reflex YN ORDER UMIC; Urine Nitrite NEGATIVE (Negative); Urine Protein NEGATIVE (Negative); Urine RBC <5 /HPF (None Seen); Urine Urobilinogen Normal (Normal); Urine WBC <5 /HPF (<5); Urine pH 7.5 (5.0-7.0)
[2024-03-29 16:24] VITALS: BMI 31.2
[2024-03-29] MEDS ORDERED: ACETAMINOPHEN 325 MG TABLET PO PRN (16:28)
[2024-03-29] MEDS: CHLORASEPTIC LOZENGES PO SCH (17:05)
[2024-03-29] MEDS: MORPHINE 4 MG/ML SYR IV PRN (17:10)
[2024-03-29] MEDS: NA CHLORIDE 0.9% 1,000 ML IV SCH (17:47)
[2024-03-29] MEDS: CEFAZOLIN 1 GM in NA CHLORIDE 0.9% 50 ML IVPB SCH (17:48)
[2024-03-29] MEDS: FAMOTIDINE 20 MG/2 ML VIAL IV SCH (20:01)
--- NOTE | 2024-03-29 20:23 | HP ---
Date of Admission: 03/29/2024 Chief Complaint: Nosebleed. History Of Present Illness: This is a 68-year-old pleasant female patient, who came into emergency room with nose bleeding problem and she was admitted to my service today. I have discussed details with emergency room physician. I have reviewed today's emergency room visit record on 2 separate occasions as well as emergency room record from 03/25/2024 was reviewed. The patient's who is with her at bedside reports that about 2 weeks ago, the patient had slight amount of nose bleed and that was the first time in her life that she had it and it subsided on its own without any intervention and she did not have any further problem until this week. On Monday, on March 25, 2024, she started to have nose bleeding and this was severe enough that she ended up coming to the hospital. After she came to the hospital, her nose was packed and she was discharged to go home from emergency room with followup instructions to see Dr. Stratton after this week and inserted dissolvable packs in her nose and she was sent home. Today, she comes back to the emergency room with nose bleeding again and after she was evaluated at the office, nose packing was done and she was discharged from emergency room to see Dr. Cantu, who is covering for Dr. Stratton today at the office. The patient saw her upon leaving emergency room at her office and Dr. Cantu removed that nose pack. She started having bleeding again and she had balloon inserted in her nose by Dr. Cantu and she requested her to come back to the emergency room for admission and at that morning, I was contacted requesting admission and this is the first time I have learned about all these details and information by talking to her, her , and reviewing emergency room records. When I saw her, she was lying in bed, not in distress. Her was with her at bedside. Review of Systems: ENT: As mentioned above and now she has some pain in and around her nostril area because of this inflated balloon in place in her nasal cavity. All other systems reviewed and negative. Allergies: NO KNOWN ALLERGIES. Medications: Olmesartan/HCTZ 1 tablet by mouth daily. Social History: Negative for smoking or alcohol use. Family History: Father had coronary artery disease and congestive heart failure. Mother had lupus. Brother had stroke and congestive heart failure. Sister with hypertension. Past Medical History: Significant for hypertension, hyperlipidemia, mild persistent asthma, diverticulosis, lumbar spondylosis. Past Surgical History: Tube ligation, hysterectomy. Physical Examination: Vital Signs: Height 5 feet 4 inches, weight 182 pounds, temperature 97.8, pulse 71, respiratory rate 18, blood pressure 160/88, oxygen saturation 99%. General: Awake, alert, oriented, not in distress. HEENT: The patient has a balloon present in her left nasal cavity with a gauze covering her nostril. There is no evidence of any blood stain on the gauze. No active bleeding. Neck: Supple. No JVD, lymph nodes, bruit, thyromegaly noted. Lungs: Bilateral good equal air entry. Clear to auscultation. No rhonchi. No rales. Heart: Normal heart sounds, no murmur or gallop. Abdomen: Soft, bowel sounds normal. No guarding, rigidity, tenderness, mass, hepatosplenomegaly, distention, or bruit noted. Extremities: No leg edema. No calf tenderness. Skin: Skin over anterior neck has some dried blood stained. Lymphatics: No lymph node enlargement in neck, supraclavicular, infraclavicular region. Neuro: No focal neurological deficit. Chest: Unremarkable. External Genitalia: Deferred. Rectal: Deferred. Laboratory Data: WBC 5.8, hemoglobin 13.7, platelets 233. Sodium 139, potassium 3.5, chloride 104, bicarb 31, BUN 22, creatinine 0.60, glucose 100. Liver function tests unremarkable. INR 1.03. Chest x-ray, no acute cardiopulmonary changes. Impression: 1. Epistaxis. 2. Hypertension. 3. Mild persistent asthma. 4. Diverticulosis. 5. Lumbar spondylosis. 6. Hyperlipidemia. Plan: We will go ahead and admit her to hospital for further evaluation and management of this problem. ENT consultation has been requested from Dr. Cantu who will manage her epistaxis problem. For pain control, we will go ahead and use morphine and she has received a dose of morphine in the emergency room earlier and she was able to tolerate that without any side effect. For DVT prophylaxis, the patient was advised to move her lower extremity as instructed and will use SCD for DVT prophylaxis. For hypertension, we will continue olmesartan/HCTZ and the patient reports that ever since she has lost weight with GLP-1 agonist medication, she has been able to stop her amlodipine that she was taking at home in the past and with olmesartan/HCTZ, her blood pressure has been staying in range of 120/70 or so and high blood pressure reading that we are noticing here in the emergency room is unusual for her and obviously pain and stress that she is going through will call this blood pressure number to go up and all these details were discussed with her. We will end up using amlodipine at least now on a temporary basis along with continuing her olmesartan/HCTZ that she takes at home for blood pressure control. Her asthma problem does not require any intervention at this time unless we notice any asthma related problem while here in hospital. Total time spent today was 80 minutes including review of 3 different emergency room visit records, communication with emergency room provider, review of office record, and performing evaluation and management for this hospital admission. I will see her tomorrow morning for followup. BEVERLY/DAYANNA Voice ID: [id number]
[2024-03-29] MEDS: ONDANSETRON 4 MG/2 ML VIAL IV PRN (21:41)
[2024-03-29 23:00] LABS: Hematocrit 36.8 % (36.0-45.0); Hemoglobin 12.5 g/dL (12.0-15.0)
[2024-03-30 03:58] LABS: Absolute Eosinophils 0.1 K/uL (0-0.5); Absolute Lymphocytes (CBC) 1.4 K/uL (0.7-4.9); Absolute Monocytes 0.4 K/uL (0.1-1.3); Absolute Neutrophil 6.1 K/uL (1.8-8.0); Basophils % 0.4 % (0-1.3); Eosinophils % 1.1 % (0-4.4); Hematocrit 34.9 % (36.0-45.0); Hemoglobin 12.2 g/dL (12.0-15.0); Lymphocytes % 16.8 % (15.3-44.8); MCH 33.6 pg (27.0-35.0); MCHC 34.9 g/dL (32.0-36.0); MCV 96.2 fL (80-100); MPV 9.4 fL (7.6-11.3); Monocytes % 5.5 % (3.3-12.3); Neutrophils % 76.2 % (41.7-73.7); Nucleated RBC Absolute Count 0.1 (0-0); Nucleated Red Blood Cells % 0.7 % (0-0); Platelets 213 thou/uL (152-406); RBC Red Blood Cell Count 3.63 M/uL (3.86-4.86); Red Cell Distribution Width 12.8 % (12.1-15.2)
[2024-03-30 04:13] LABS: Anion Gap 6.6 mEq/L (5.0-15.0); Potassium 3.6 mEq/L (3.5-5.1)
[2024-03-30] MEDS ORDERED: MORPHINE 2 MG/ML SYR IV PRN (07:40)
[2024-03-30] MEDS: MORPHINE 4 MG/ML SYR IV PRN (08:22)
[2024-03-30] MEDS: VALSARTAN 160 MG TAB PO SCH (10:03)
[2024-03-30] MEDS: AMLODIPINE 5 MG TAB PO SCH (10:04)
[2024-03-30] MEDS: MAGNESIUM HYDROXIDE 8% 30 ML PO ONE (13:07)
--- NOTE | 2024-03-30 20:34 | PN ---
Date of Progress Note: 03/30/2024 Subjective: The patient was seen this morning for followup. No new complaints or problems are repor kierra by her. She has not had a bowel movement in last 2-3 days and is requesting some medication for that. No more nosebleed since her admission, and her balloon in her left nostril, which was placed b y Dr. Cantu is still in place and Dr. Cantu is planning to take her to surgery tomorrow for cauterizati on. Objective: Vital Signs: Reviewed. Her last vital signs this morning before I saw her, temperature 97.5, pulse 62, respiratory rate 16, blood pressure 148/69, oxygen saturation 94% on room air. HEENT: Unremarkable except presence of left nostril balloon unchanged from yesterday. Lungs: Clear to auscultation. Heart: Sounds normal. Abdomen: Soft. Bowel sounds normal. No guarding, rigidity, tenderness, distention. Extremities: No leg edema. Laboratory Data: White count 8.1, hemoglobin 12.2, platelets 213. Sodium 139, potassium 3.6, chlori de 107, bicarb 29, BUN 15, creatinine 0.55, glucose 100. Impression: 1.Epistaxis. 2.Hypertension. Plan: We will go ahead and continue current medications. Continue current antihypertensive medicati on, which is amlodipine and valsartan and she is on cefazolin. We will continue that. We will aracelis nue to follow with Dr. Cantu. SCD was ordered for DVT prophylaxis and we will repeat blood work tomorrow morning. I will see her tomorrow for followup. BEVERLY/MODL Voice ID: [id number] Report ID: [id number]
[2024-03-31 07:39] LABS: Absolute Eosinophils 0.2 K/uL (0-0.5); Absolute Lymphocytes (CBC) 1.3 K/uL (0.7-4.9); Absolute Monocytes 0.5 K/uL (0.1-1.3); Absolute Neutrophil 4.2 K/uL (1.8-8.0); Basophils % 0.3 % (0-1.3); Eosinophils % 2.7 % (0-4.4); Hematocrit 35.6 % (36.0-45.0); Hemoglobin 12.2 g/dL (12.0-15.0); Lymphocytes % 21.4 % (15.3-44.8); MCH 33.1 pg (27.0-35.0); MCHC 34.3 g/dL (32.0-36.0); MCV 96.5 fL (80-100); MPV 8.8 fL (7.6-11.3); Monocytes % 7.6 % (3.3-12.3); Nucleated Red Blood Cells % 0.2 % (0-0); Platelets 215 thou/uL (152-406); RBC Red Blood Cell Count 3.69 M/uL (3.86-4.86); Red Cell Distribution Width 13.1 % (12.1-15.2)
[2024-03-31 07:54] LABS: Anion Gap 6.3 mEq/L (5.0-15.0); Potassium 3.3 mEq/L (3.5-5.1)
[2024-03-31] MEDS ORDERED: MIDAZOLAM HCL 2 MG/2 ML INJ ONE (08:41)
[2024-03-31] MEDS ORDERED: EPINEPHRINE 1 MG/ML VIAL ONE (08:41)
[2024-03-31] MEDS ORDERED: propofoL 200 MG/20 ML VIAL IV ONE (08:41)
[2024-03-31] MEDS ORDERED: FENTANYL CITR 100 MCG/2 ML ONE (08:41)
[2024-03-31] MEDS ORDERED: LIDOCAINE 1% MPF 5 ML VIAL ONE (08:42)
[2024-03-31] MEDS ORDERED: ONDANSETRON 4 MG/2 ML VIAL ONE (08:42)
[2024-03-31] MEDS ORDERED: KETOROLAC 30 MG/ML INJ ONE (08:42)
[2024-03-31] MEDS ORDERED: dexAMETHasone 4 MG/ML VIAL ONE (08:42)
[2024-03-31] MEDS ORDERED: OXYMETAZOLINE HCL 0.05% 15ML NAS ONE (08:42)
[2024-03-31] MEDS ORDERED: NA CHLORIDE 0.9% 0 ML ONE (08:43)
[2024-03-31] MEDS: Ringers Lactate 1,000 ML IV ONE (09:07)
[2024-03-31 09:09] VITALS: O2SAT 95
[2024-03-31] MEDS ORDERED: LIDOCAINE HCL/EPINEPHRINE 20 ML MDV ONE (09:17)
[2024-03-31] MEDS: BACITRACIN OINTMENT 14 GM TUBE TOP ONE (09:38)
--- NOTE | 2024-03-31 10:31 | OP ---
Date of Procedure: 03/31/2024 Surgeon: ANNA VILLALPANDO Preoperative Diagnosis: Acute recurrent left nasal cavity posterior and anterior epistaxis. Postoperative Diagnosis: Acute recurrent left nasal cavity posterior and anterior epistaxis. Procedure: Bilateral nasal endoscopy with extensive cautery and packing of the anterior and posterio r left nasal cavity epistaxis under general sedation. Anesthesia: General endotracheal anesthesia was administered. Estimated Blood Loss: Less than 5 mL. Specimens: None. Findings: Left posterior inferior turbinate polypoid degeneration with evidence of several exposed v essels with oozing of blood, left mid septal mucosal excoriation and evidence of superficial vessels with oozing of blood. Complications: None. Disposition: Stable. The patient tolerated the procedure well. Indication For Procedure: The patient is a pleasant 68-year-old female who presented to my outpatien t clinic with recurrent presumed left nasal cavity arterial epistaxis that has been refractory to sev eral nasal packs and Gel-Foam. These were indications to bring the patient to operative suite for th e above-mentioned procedure. She understood. All questions were answered. Risks versus benefits an d complications were explained in detail and a consent form signed, was placed in the chart. Description Of Procedure: The patient was transferred from the preoperative holding area to the oper ative suite by Department of Anesthesia, placed on the operating room table supine, sedated and intub ated in normal fashion. Table was rotated 90 degrees. The left balloon Epistat was removed after de flating the cuff with a 10 mL syringe. I then used a 0-degree rigid nasal endoscope and inserted and advanced into the right nasal cavity. There was no evidence of epistaxis or excoriation. I then in serted it to the left posterior nasal cavity and nasopharynx. The patient had several exposed vessel s noted along the posterior inferior turbinate. These were cauterized with suction Bovie on a settin g of 20 for coagulation. Then in the process of withdrawing the scope, I noticed the patient also rivas d some exposed vessels noted in the mid septal region of the mucosa. Thus, these vessels were cauter ized with suction Bovie. I then coated Surgicel packs with antibiotic ointment and inserted into the left nasal cavity and a mustache dressing was placed. She was then awakened, transferred to PACU in stable condition. She will be sent back to the second floor and hopefully will be discharged home. I recommend cephalexin 500 mg t.i.d. for 10 days in that the patient has a foreign body in the left nasal cavity. The Surgicel should dissolve within several weeks. She is going to follow up [facility] or sooner if needed. ALONZO/DAYANNA Voice ID: [id number] Report ID: [id number]
[2024-03-31] MEDS: KCL 20 MEQ/100 mL IVPB 20 MEQ/100 ML BAG IV SCH (10:37)
--- NOTE | 2024-03-31 10:40 | CON ---
Date of Consultation: 03/30/2024 Chief Complaint: Left nasal cavity bleeding-recurrent. History Of Present Illness: The patient is a pleasant 68-year-old female who has been having recurre nt left nasal epistaxis in which she presented to the emergency room this past week and a Rhino Rocke t was placed and then the Rocket was pulled by Dr. Stratton on March 27, 2024, and Gel-Foam placed for a small abrasion on the left inferior turbinate. She had been doing quite well and then she presente d again to the emergency room on March 29 with recurrent bleeding from the left nasal cavity. She w as then sent to my office for examination and the patient was having bright red blood coming both out of the left nostril and seen streaming down the left oropharynx. I had to insert an Epistat anterio r/posterior balloon catheter and I was able to get the bleeding stopped, but due to posterior bleedin g, I then sent her back to the emergency room for subsequent admission with the plan for taking to e operating room for nasal endoscopy and visualization of the culprit vessel and potential cauterizat ion. Currently, she states the bleeding has resolved while the catheter is painful. She is able to tolerate with pain with the help of pain medicine. She denies any fever, chills, shortness of breath , or difficulty swallowing. Past Medical History: Hypertension, arthritis, and asthma. Past Surgical History: Cataract removal, tubal ligation, hysterectomy, vaginal floor reconstruction. Medications: Olmesartan/hydrochlorothiazide and estradiol. Allergies: NO KNOWN DRUG ALLERGIES. Social History: Smoking and alcohol. Denies alcohol, tobacco, or illicit drugs. Review of Systems: Head: Negative for headaches. Constitutional: Negative for lethargy or fever. Eyes: Negative for eye drainage, pain. Ears: Negative for otorrhea, hearing loss. Nose: Positive for left nasal cavity bleeding and mild pain and congestion and rhinorrhea. Oral Cavity: Negative for sore throat, dysphagia. Neck: Negative for swelling or lymph node enlargement. Physical Examination: Vital Signs: Stable. General: The patient is awake, alert, oriented to person, place, and time. Eyes: PERRLA/EOMI. Head: Atraumatic, normocephalic. Ears: Deferred. Nose: Epistat posterior/anterior balloon intact with dried blood noted at the left naris. No eviden ce of right nasal cavity bleeding. Oral Cavity: Oropharyngeal exam demonstrates posterior oropharynx intact. No evidence of postnasal drainage or active bleeding or blood clot. Neck: Supple. Trachea midline. Diagnosis: Recurrent left nasal cavity epistaxis, status post Epistat balloon catheter. Recommendations: 1.We will take to the operating room on 03/31/2024 for examination of bilateral nasal cavities with cauterization of potential culprit of all vessels under sedation. 2.Plan is to discharge home during the day if the procedure goes as planned, and of course, this is upon Dr. Ugalde's examination and recommendations. ALONZO/DAYANNA Voice ID: [id number] Report ID: [id number]
[2024-03-31 12:14] VITALS: BP 142/67; TEMP 97.3
[2024-03-31] MEDS: POTASSIUM CL SA 10 MEQ TAB PO ONE (13:06)
--- NOTE | 2024-03-31 13:22 | DS ---
Date of Discharge: 03/31/2024 Disposition: Discharged to go home. Physical Examination: HEENT: Unremarkable except presence of surgical dressing over nostril. Lungs: Clear to auscultation. Heart: Sounds normal. Abdomen: Soft. Bowel sounds normal. No guarding, rigidity, tenderness, distention. Extremities: No leg edema. Laboratory Data: Upon admission, white count 5.8, hemoglobin 13.7, platelets 233. Today, white count 6.3, hemoglobin 12.2, platelets 250. Chemistry upon admission, sodium 139, potassium 3.5, chloride 104, bicarb 31, BUN 22, creatinine 0.60, glucose 100. Liver function tests unremarkable. Troponin 7.8. ProBNP 37. Today, sodium 140, potassium 3.3, chloride 107, bicarb 30, BUN 10, creatinine 0.53, glucose 92. Hospital Course: This is a 68-year-old pleasant female patient who came into emergency room with complaints of nosebleed and was admitted to the hospital. Please see dictated H and P for more information. After patient was evaluated in the ER, she was admitted to the hospital. The patient was seen by Dr. Cantu from ENT and she placed a balloon in her left nostril and since that time, patient has not had any recurrence of nosebleed and Dr. Cantu recommended to take the patient to surgery and perform cauterization procedure for this recurrent bleeding problem and this procedure was done today and after procedure, the patient was medically stable. I saw her twice today first time before surgery while she was in the holding area and discussed details with her and her regarding discharge medications and instructions. Return instructions were given to them as well and saw her after surgery when she came back to her room. The patient takes semaglutide type of compound formula from nurse practitioner for her weight loss problem, which has helped her tremendously, but at the same time it was caused some constipation problem. She is planning to go on her cruise to [place] in about 10-12 days and she missed her last dose, which was supposed to be this past Monday and I have instructed her not to take this anymore until after she comes back from her cruise. During this hospitalization, we did give her some Milk of Magnesia, but that actually has not worked so far and at home, she uses Milk of Magnesia and MiraLAX and still has this constipation problem, so she will follow recommendation that I have given to her today for her constipation. Final Diagnoses: 1. Epistaxis. 2. Hypertension. 3. Hypokalemia. 4. Constipation. 5. Hyperlipidemia. 6. Mild persistent asthma. 7. Diverticulosis. 8. Lumbar spondylosis Discharge Medications And Instructions: Continue all prior home medication except following changes: 1. Stop meloxicam. 2. Do not take any medications like aspirin, Aleve, naproxen, Motrin, ibuprofen, etc. 3. May use Tylenol 500 mg 4 times a day as needed. 4. May take [id number]-[id number] Senokot S 2 tablets by mouth 2 times a day for constipation. 5. May take ocqb-lpr-lraxfho MiraLAX 17 g powder mixed with water and drink it 2 times a day for constipation. 6. Follow up at my office next week on 04/03 or 04/04/2024. 7. Follow up with Dr. Cantu per her instruction. 8. Check your blood pressure 2 times a day and take amlodipine 5 mg daily as needed for systolic blood pressure more than 140. 9. The patient was instructed that once Senokot S and MiraLAX starts working on her and if she feels like she is having loose stool or diarrhea that she can start cutting back on those medications. Total time spent, 40 minutes. BEVERLY/MODAl Voice ID: [id number] Report ID: [id number] MTDD
--- NOTE | 2024-04-01 15:03 | EKG ---
Test Date: 2024-03-29 Test Time: 12:26:53 Rubber Heel And Sole Press Tender: OLGA MEASUREMENT RESULTS: Intervals: Rate: 70 WV: 174 QRSD: 88 QT: 402 QTc: 434 [place]: P: 67 WV: 174 QRS: 20 T: 29 INTERPRETIVE STATEMENTS: Normal sinus rhythm Septal infarct, age undetermined Abnormal ECG Compared to ECG 03/27/2012 14:57:29 Myocardial infarct finding now present ST (T wave) deviation no longer present Electronically Signed On 04-01-24 14:54:23 CDT by Wesly Richards
== END 2024-03-31 13:24 | disposition home or self-care (01) ==
LOC: ER 12:06 → ERHOLD 13:04 → 2ND 15:01
PROVIDERS: ADMIT Internal Medicine; ATTEND Internal Medicine
PROC: 09JK8ZZ Inspection of Nasal Mucosa and Soft Tissue, Via Natural or Artificial Opening Endoscopic (ICD-10-PCS; principal; 2024-03-31 09:00)
DX: R04.0 Epistaxis (principal); I10 Essential (primary) hypertension; E78.5 Hyperlipidemia, unspecified; J45.909 Unspecified asthma, uncomplicated; K57.90 Diverticulosis of intestine, part unspecified, without perforation or abscess without bleeding; M47.896 Other spondylosis, lumbar region; K59.00 Constipation, unspecified
CPT/HCPCS: 93005; 85025 ×3; 81001; 80048 ×3; 36415 ×2; 83735; 85610; 80076; 85018; 85014; 84484; 83880; 71045; 96375; 96374; 99285; 31238; J3480; J2704; J1100; J2001; J2250; J3010 ×2; J2405 ×3; G0378 ×6; J7120; J7030 ×5; J0690 ×8; J0171; J7050

== ENCOUNTER 2025-07-16 09:06 | Observation (INO) | payer OTHER ==
--- OUTSIDE RECORDS SUMMARY | 2025-07-16 09:10 | XMS REPORT | Continuity of Care Document ---
Author Name Unknown Address [address] [place] [address] [facility] Address [address] [place] [address] Care Team Providers Care Nursing Clerk Name Role Phone Robby Ugalde Primary Care Physician [phone] Robby Ugalde Attending Clinician Unavailable Mauri Guadalupe Attending Clinician Unavailbranden e MARIO DIAZ Attending Clinician Unavaila Michael Blount APRN Attending Clinician [phone] ISABELLE_GCBZW_Kadiyala_S Attending Clinician Unavaila ble SISSON_C Attending Clinician Unavailable Yobany Antoine Attending Clinician [phone] Robby Ugalde Admitting Clinician Unavailable Mauri Guadalupe Admitting Clinician Unavailabl e GC_GCBZW_Kadiyala_S Admitting Clinician Unavaila ble SISSON_C Admitting Clinician Unavailable Payers Payer Name Policy Type Policy Number Effective Date Expirati on Date Source MEDICARE PART A AND B [id number] 2021 00:00:00 [place] PricePanda [id number] 2021 00:00:00 ADIEL (MEDICARE SUPPLEMENT) [id number] 2021 00:00:00 [place] [id number] Problems Condition Name Condition Details Condition Category Status Onset Date Resolution Date Last Treatment Date Treating Clinician Comments Source Acute urinary tract infection Acute Urinary Tract Infection Problem Active 3-31 00:00: 00 [facility] Mac hematuria Mac Hematuria Problem Active 1-14 00:00: 00 [facility] Urgent desire to urinate Urgent Desire to Urinate Problem Active 1-13 00:00: 00 [facility] Osteoporos is Osteoporos is Problem Active 2023-10 0-28 00:00: 00 [facility] Left knee pain Left knee pain Disease Active - 00:00: 00 [facility] Primary localized osteoarthr itis of left knee Primary localized osteoarthr itis of left knee Disease Active - 00:00: 00 [facility] Cystocele Cystocele Problem Active 2022-10 0-25 00:00: 00 [facility] 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 Hysterecto my Problem Active 2022-10 0-25 00:00: 00 [facility] Atrophy of vagina Atrophy of Vagina Problem Active 2022-10 0-25 00:00: 00 [facility] Atrophic vaginitis Atrophic Vaginitis Problem Active 2022-10 0-25 00:00: 00 [facility] Overactive urinary bladder Overactive Urinary Bladder Problem Active 2022-10 0-25 00:00: 00 [facility] Hypertensi ve disorder Hypertensi ve Disorder Problem Active 9- 00:00: 00 [facility] Seasonal allergy Seasonal Allergy Problem Active 9- 00:00: 00 [facility] Asthma Asthma Problem Active 9- 00:00: 00 [facility] Essential hypertensi on Essential Hypertensi on Problem Active 4-12 00:00: 00 [facility] Midline cystocele Midline Cystocele Problem Active 9-12 00:00: 00 [facility] Genuine stress incontinen ce Genuine Stress Incontinen ce Problem Active 9- 00:00: 00 [facility] Lateral cystocele Lateral Cystocele Problem Active 8 00:00: 00 [facility] Uncomplica kierra mild persistent asthma Uncomplica kierra Mild Persistent Asthma Problem Active 06-06 00:00: 00 [facility] Perineal hernia Perineal Hernia Problem Active 4 00:00: 00 [facility] 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 Problem Active 4 00:00: 00 [facility] Screening mammograph y Screening Mammograph y Problem Active 01-22 00:00: 00 [facility] Body mass index 30+ - obesity Body Mass Index 30+ - Obesity Problem Active 1- 00:00: 00 [facility] Simple obesity Simple Obesity Problem Active 10-25 00:00: 00 [facility] Screening for malignant neoplasm of colon Screening for Malignant Neoplasm of Colon Problem Active 10-25 00:00: 00 [facility] Abnormal weight gain Abnormal Weight Gain Problem Active 07-12 00:00: 00 [facility] Gynecologi roney examinatio n abnormal Gynecologi roney Examinatio n Abnormal Problem Active 07-12 00:00: 00 [facility] Allergies, Adverse Reactions, Alerts Allergy Name Allergy Type Status Severity Reaction(s) Onset Date Inactive Date Treating Clinician Comments Source No Known Allergie s DA Active U 3-05 00:00: 00 [facility] No Known Allergie s DA Active U 2-06 00:00: 00 [facility] Social History Social Habit Start Date Stop Date Quantity Comments Source History of Tobacco Use [facility] Sex Assigned At [facility] Sexual orientation [facility] Tobacco use and exposure 2024-06-25 00:00:00 2024-06-25 00:00:00 Smokeless tobacco non-user [facility] History of Social function 2024-06-25 00:00:00 2024-06-25 00:00:00 [facility] Smoking Status Start Date Stop Date Source Never Smoker [facility] Medications Ordered Medication Name Filled Medication Name Start Date Stop Date Current Medication? Ordering Clinician Indication Dosage Frequency Signature (SIG) Comments Components Source biotin biotin No biotin [facility] collagen (bovine) collagen (bovine) No collagen (bovine) [facility] estradiol 0.01% (0.1 mg/gram) vaginal cream Insert 0.5 g 3 times a week by vaginal route at bedtime for 90 days. estradiol 0.01% (0.1 mg/gram) vaginal cream Insert 0.5 g 3 times a week by vaginal route at bedtime for 90 days. No .5g Q56H estradiol 0.01% (0.1 mg/gram) vaginal cream Insert 0.5 g 3 times a week by vaginal route at bedtime for 90 days. [facility] Multi Vitamin Multi Vitamin No Multi Vitamin [facility] olmesartan olmesartan No olmesartan [facility] Macrobid 100 mg capsule Take 1 capsule every 12 hours by oral route for 7 days. Macrobid 100 mg capsule Take 1 capsule every 12 hours by oral route for 7 days. No 1capsul e(s) Q12H Macrobid 100 mg capsule Take 1 capsule every 12 hours by oral route for [address] [facility] magnesium magnesium No magnesium [facility] Estradiol 0.1 MG/GM Estradiol 0.1 MG/GM No Estradiol 0.1 MG/GM Ondansetron 4 MG Ondansetron 4 MG No Ondansetro n 4 MG Olmesartan Medoxomil-H CTZ 40-25 MG Olmesartan Medoxomil-H CTZ 40-25 MG No Olmesartan Medoxomil- HCTZ 40-25 MG Vital Signs Vital Name Observation Time Observation Value Comments S ource BP Diastolic 2024-10-29 00:00:00 84 mm[Hg] [facility] Body Weight 2024-10-29 00:00:00 194 [lb_av] [facility] Height 2024-10-29 00:00:00 64 [in_i] [facility] BMI (Body Mass Index) 2024-10-29 00:00:00 33.3 kg/m2 [facility] BP Systolic 2024-10-29 00:00:00 159 mm[Hg] [facility] BMI (Body Mass Index) 2024-09-02 00:00:00 33.4 kg/m2 [facility] BP Diastolic 2024-09-02 00:00:00 76 mm[Hg] [facility] BP Systolic 2024-09-02 00:00:00 134 mm[Hg] [facility] Body Weight 2024-09-02 00:00:00 194.6 [lb_av] [facility] Height 2024-09-02 00:00:00 64 [in_i] [facility] BMI (Body Mass Index) 2024-08-12 00:00:00 33.7 kg/m2 [facility] BP Diastolic 2024-08-12 00:00:00 85 mm[Hg] [facility] Height 2024-08-12 00:00:00 64 [in_i] [facility] Body Weight 2024-08-12 00:00:00 196.4 [lb_av] [facility] BP Systolic 2024-08-12 00:00:00 138 mm[Hg] [facility] Procedures Procedure Date / Time Performed Performing [facility] n Source CT, urogram 2024-09-02 00:00:[address] [facility] M edical DEXA 2024-08-12 00:00:00 [facility] edical MAMMO, screening, digital, bilateral 2024-08-12 00:00:[address] [facility] Medical Repair of Vagina 2022-06-21 00:00:00 [facility] Ophthalmology - Cataract Surgery 2022-06-07 00:00:00 [facility] Total Abdominal Hysterectomy with Bilateral Salpingo-oophorectomy 2012-10-16 00:00:[address] [facility] Medical Tubal Ligation 1991-10-16 00:00:00 [facility] Plan of Care Planned Activity Planned Date Details Comments Source Diagnostic Test Pending 2020-11-17 00:00:00 COVID-19 RNA (SARS-CoV-2), QL, infection prevention coordinator-PCR, 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 [code = COVID-19 RNA (SARS-CoV-2), QL, infection prevention coordinator-PCR, 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] [facility] Diagnostic Test Pending 2020-11-17 00:00:00 COVID-19 RNA (SARS-CoV-2), QL, infection prevention coordinator-PCR, 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 [code = COVID-19 RNA (SARS-CoV-2), QL, infection prevention coordinator-PCR, 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] [facility] Diagnostic Test Pending 2020-11-17 00:00:00 rapid SARS CoV 2 Ag, QL IA, 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 [code = rapid SARS CoV 2 Ag, QL IA, 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] [facility] Encounters Start Date/Time End Date/Time Encounter Type Admission Type Attending [facility] Facility Care Department Encounter ID Source 2024-08-06 08:29:01 Outpatient Robby Ugalde [facility] [id number] [facility] 2024-[facility]-25 15:38[facility] [id number] [facility] 2023-08-15 08:54:01 Outpatient Robby Ugalde [facility] [id number] [facility] 2025-01-03 00:00:00 2025-01-03 00:00:00 Esmer Garcia MD: [address], [place] [address] , Ph. [facility] - GC_GCBZW_[facility]* [id number] [facility] 2024-12-18 08:52:00 2024-12-19 10:55:00 Inpatient Mauri Zee [facility] SURG [id number] [facility] 2024-12-17 00:00:00 2024-12-17 00:00:00 JOSSELIN Giron: [address], [place] [address] , Ph. [facility] GC[facility]GCBZW_[facility]* [id number] [facility] 2024-12-06 09:45:00 2024-12-06 09:45:00 Outpatient Mauri Zee HCATO RADI [id number] [facility] 2024-11-19 15:54:00 2024-11-19 15:54:00 Outpatient Mauri Guadalupe HCACL LABO [id number] [facility] 2024-11-12 00:00:00 2024-11-12 00:00:00 (F/U) Follow Up Visit SEAN ESTRADA [id number] [facility] 2024-10-29 00:00:00 2024-10-29 00:00:00 Esmer Garcia MD: [address], [place] [address] , Ph. [facility] - GC_GCBZW_Nicole wagner Shahid* [id number] [facility] 2024-09-02 00:00:00 2024-09-02 00:00:00 Cassidy Lee PA: [address], [place] [address] , Ph. [facility] - GC_GCBZW_Nicole wagner Shahid* [id number] [facility] 2024-08-30 00:00:00 2024-08-30 00:00:00 JOSSELIN Giron: [address], [place] [id number] , Ph. [facility] - GC_GCBZW_Nicole edward Shahid* [id number] [facility] 2024-08-28 10:30:00 2024-08-28 10:30:00 Outpatient AMRIO CHAMBERS [facility] [id number] [facility] 2024-08-12 00:00:00 2024-08-12 00:00:00 BRIANA Crooks: [address], [place] [address] , Ph. [facility] - GC_GCBZW_Nicole edward Shahid* [id number] [facility] 2024-08-06 00:00:00 2024-08-06 00:00:00 (F/U) Follow Up Visit CLS CLS [id number] [facility] 2024-06-25 11:00:00 2024-06-25 11:52:46 Outpatient [facility] [id number] [facility] 2024-06-25 11:00:00 2024-06-25 11:52:39 Office Visit Michael Bundy [place] [facility] [id number] [facility] 2020-11-17 00:00:00 2020-11-17 00:00:00 Outpatient Arash Yobany [facility] [id number] 2020-11-17 00:00:00 2020-11-17 00:00:00 Yobany Antoine, MSN, JOB SPECIFICATION WRITER, [employer]: [address], [address], [place] [address] , Ph. [facility], Yobany Antoine, MSN, [employer] [id number] [facility] Results Test Description Test Time Test Comments Results Result Co mments Source [facility] Medicalinfectious disease [id number] 00:00:00* Test Item Value Reference Range Interpretation Comme nts acinetobacter baumannii (diony t code = acinetobacter baumannii) 0.000 ppm 19.961-24.689 citrobacter freundii (test c ode = citrobacter freundii) 0.000 ppm 23.000-31.881 enterobacter aerogenes, cloa (test code = enterobacter aerogenes, cloacae) 0.000 ppm 23.000-31.535 enterococcus faecalis, faeci um (test code = enterococcus faecalis, faecium) 0.000 ppm 26.000-31.575 escherichia coli (test code = escherichia coli) 25.836 ppm 23.000-28.500 A klebsiella pneumoniae, oxyto ca (test code = klebsiella pneumoniae, oxytoca) 27.668 ppm 23.000-30.500 A morganella morganii (test co de = morganella morganii) 0.000 ppm 19.961-24.689 proteus mirabilis, vulgaris (test code = proteus mirabilis, vulgaris) 0.000 ppm 23.000-28.500 pseudomonas aeruginosa (test code = pseudomonas aeruginosa) 0.000 ppm 23.000-28.500 staphylococcus aureus (test code = staphylococcus aureus) 0.000 ppm 26.000-30.902 streptococcus agalactiae (gr oup B strep) (test code = streptococcus agalactiae (group B strep)) 0.000 ppm 26.000-32.222 ivon albicans, parapsilos is, tropicalis (test code = ivon albicans, parapsilosis, tropicalis) 0.000 ppm 19.961-30.770 ivon glabrata (nakaseomyc es glabratus) (test code = ivon glabrata (nakaseomyces glabratus)) 0.000 ppm 23.000-32.138 ivon krusei (pichia kudriavzevii) (test code = ivon krusei (pichia kudriavzevii)) 0.000 ppm 23.000-32.271 serratia marcescens (test co de = serratia marcescens) 0.000 ppm 23.000-31.204 streptococcus pyogenes (grou p A strep) (test code = streptococcus pyogenes (group A strep)) 0.000 ppm 19.961-24.689 staphylococcus saprophyticus (test code = staphylococcus saprophyticus) 0.000 ppm 19.961-24.689 staphylococcus epidermidis, haemolyticus, lugdunensis (test code = staphylococcus epidermidis, haemolyticus, lugdunensis) 0.000 ppm 19.961-24.689 [facility], [id number] 11:58:23* Test Item Value Reference Range Interpretation Comme nts Leukocytes (test code = Leukocytes) 1+ Nitrite (test code = Nitrite) negative Urobilinogen (test code = Urobilinogen) Normal Protein (test code = Protein) Negative pH (test code = pH) 6.0 Blood (test code = Blood) 3+ Specific [place] (test code = Specific [place]) 1.010 Ketone (test code = Ketone) Negative Bilirubin (test code = Bilirubin) Negative Glucose (test code = Glucose) Negative Appearance (test code = Appearance) Clear Color (test code = Color) Yellow [facility] 1,19-[id number] 15:54:00* Test Item Value Reference Range Interpretation Comme nts VITAMIN D 1,25-DIHYDROXY (test code = [id number]) 59.3 pg/mL 24.8-81.5 Performed At: [address] [id number] Barrientos MD Ph:[id number] GLYCOSYLATED HEMOGLOBIN (HA1C)2024-11-19 15:34:00* Test Item Value Reference Range Interpretation Comme nts GLYCOSYLATED HEMOGLOBIN (HA1C) (test code = GLYHGB) < 4.75 % 0.0-5.6 Any conditi on that shortens erythocyte survival or decreasesmean erythrocyte age (e.g., recovery from acute blood loss,hemolytic anemai) will falsely lower HGBA1c resultsregardless of the method used. HGBA1c results frompatients with HbSS, HbCC and HbSc must be interpreted withcaution given the pathological processes, including anemia,increased red cell turnover, transfusion requirements, thatadversely impact HGBA1c as a marker of long-term glycemiccontrol. Alternative forms of testing such as fructosamineshould be considered for these patients.DONE AT: [address] [id number] GLYCOSYLATED HEMOGLOBIN (HA1C)2024-11-19 15:33:00* Test Item Value Reference Range Interpretation Comme nts GLYCOSYLATED HEMOGLOBIN (HA1 C) (test code = GLYHGB) < 4.75 % 0.0-5.6 N COMPREHENSIVE METABOLIC [id number] 12:25:00* Test Item Value Reference Range Interpretation Comme nts SODIUM (test code = NA) 143 mmol/L 136-145 N POTASSIUM (test code = K) 3.7 mmol/L 3.5-5.1 N CHLORIDE (test code = CL) 103.0 mmol/L 98-107 N CARBON DIOXIDE (test code = CO2) 33.7 mmol/L 21-32 H GLUCOSE (test code = GLU) 87 mg/dL 74-106 N BLOOD UREA NITROGEN (test code = BUN) 14 mg/dL 7-18 N GLOMERULAR FILTRATION RATE (test code = GFR) 92.6 >60 The Glomerular Filtration Rate is a calculated parameterbased on serum Creatinine, patient age and sex. GFR valuesless than 60 mL/min/1.73 square meters are indicative ofChronic Kidney Disease. Values less than 15 mL/min/1.73square meters indicate Kidney failure. The calculation forGFR is based on the CKD-EPI (2020) calculation. This formulais race indifferent and is the recommended formula for GFRby the National Kidney Foundation for Adults.The GFR will not calculate if the sex is unknown or if thepatient's age is <18 years. CREATININE (test code = CREAT) 0.71 mg/dL 0.55-1.02 N TOTAL PROTEIN (test code = PROT) 7.0 g/dL 6.4-8.2 N ALBUMIN (test code = ALB) 3.6 g/dL 3.4-5.0 N GLOBULIN (test code = GLOB) 3.4 g/dL 2.2-4.2 N ALBUMIN/GLOBULIN RATIO (test code = A/G) 1.1 0.7-2.0 N CALCIUM (test code = CA) 9.2 mg/dL 8.5-10.1 N BILIRUBIN TOTAL (test code = BILT) 0.40 mg/dL 0.2-1.00 N SGOT/AST (test code = AST) 19.0 U/L 15-37 N SGPT/ALT (test code = ALT) 31.0 U/L 14-59 N ALKALINE PHOSPHATASE TOTAL (test code = ALKP) 75 U/L 46-116 N PROTHROMBIN [id number] 12:14:00* Test Item Value Reference Range Interpretation Comme nts PROTHROMBIN TIME PATIENT (test code = PTP) 10.8 secs 9.4-12.5 N INTERNATIONAL NORMAL RATIO (test code = INR) 1.01 <2.0 RECOMMENDED THER APEUTIC RANGE FOR ORAL ANTICOAGULANTTREATMENT: CONDITION INRProphylaxis of venous thrombosis in 2.0 - 3.0 high-risk medical or surgical patientsTreatment of venous thrombosis 2.0 - 3.0Prevention of embolism 2.0 - 3.0Prevention of recurrent embolism, or 3.0 - 4.5 patients with mechanical prosthetic intravascular valves IS PATIENT ON ANTICOAGULANTS ? [facility] been notified if Patient is on Heparin Drip? NOTHROMBOPLASTIN TIME [id number] 12:14:00* Test Item Value Reference Range Interpretation Comme nts PTT ACTIVATED (test code = APTT) 30.2 secs 25.1-36.5 N IS PATIENT ON ANTICOAGULANTS ? [facility] been notified if Patient is on Heparin Drip? NOCBC W/AUTO [id number] 12:05:00* Test Item Value Reference Range Interpretation Comme nts WHITE BLOOD CELL (test code = WBC) 5.3 K/mm3 5.5-11.0 L RED BLOOD CELL (test code = RBC) 4.40 M/mm3 4.2-5.4 N HEMOGLOBIN (test code = HGB) 14.4 g/dL 12-16 N HEMATOCRIT (test code = HCT) 42.4 % 37-47 N MEAN CELL VOLUME (test code = MCV) 96 fL 80-98 N MEAN CELL HGB (test code = MCH) 32.7 pg 27-34 N MEAN CELL HGB CONCENTRATION (test code = MCHC) 34.0 g/dL 30.8-34.1 N RED CELL DISTRIBUTION WIDTH (test code = RDW) 12.6 % 11-16 N PLT (test code = PLT) 254 K/mm3 130-400 N MEAN PLATELET VOLUME (test c ode = MPV) 10.5 fL 8.9-12.1 N NEUTROPHIL % (test code = NT%) 62.7 % 45-70 N LYMPHOCYTE % (test code = LY%) 28.5 % 20-40 N MONOCYTE % (test code = MO%) 5.9 % 3-10 N EOSINOPHIL % (test code = EO%) 2.3 % 1-5 N BASOPHIL % (test code = BA%) 0.4 % 0.0-1.1 N NEUTROPHIL # (test code = NT#) 3.30 K/mm3 2.00-7.50 N LYMPHOCYTE # (test code = LY#) 1.50 K/mm3 1.50-4.00 N MONOCYTE # (test code = MO#) 0.31 K/mm3 0.2-0.8 N EOSINOPHIL # (test code = EO#) 0.12 K/mm3 0.04-0.4 N BASOPHIL # (test code = BA#) 0.02 K/mm3 0.02-0.10 N MANUAL DIFF REQUIRED (test c ode = MDIFF) NO MANUAL DIFF NUCLEATED RED BLOOD CELL (te st code = NRBC) 0 % 0-0 N urinalysis, [id number] 13:22:50* Test Item Value Reference Range Interpretation Comme nts Leukocytes (test code = Leukocytes) Negative Nitrite (test code = Nitrite) negative Urobilinogen (test code = Urobilinogen) Normal Protein (test code = Protein) Negative pH (test code = pH) 7.0 Blood (test code = Blood) Negative Specific [place] (test code = Specific [place]) 1.010 Ketone (test code = Ketone) Negative Bilirubin (test code = Bilirubin) Negative Glucose (test code = Glucose) Negative Appearance (test code = Appearance) Clear Color (test code = Color) Pale Yellow [facility] Medicalurinalysis, [id number] 16:33:57* Test Item Value Reference Range Interpretation Comme nts Leukocytes (test code = Leukocytes) Negative Nitrite (test code = Nitrite) negative Urobilinogen (test code = Urobilinogen) Normal Protein (test code = Protein) Negative pH (test code = pH) 6.5 Blood (test code = Blood) Negative Specific [place] (test code = Specific [place]) 1.015 Ketone (test code = Ketone) Negative Bilirubin (test code = Bilirubin) Negative Glucose (test code = Glucose) Negative Appearance (test code = Appearance) Clear Color (test code = Color) Yellow [facility] Medicalinfectious disease [id number] 00:00:00* Test Item Value Reference Range Interpretation Comme nts acinetobacter baumannii (diony t code = acinetobacter baumannii) 0.000 ppm 19.961-24.689 citrobacter freundii (test c ode = citrobacter freundii) 0.000 ppm 23.000-31.881 enterobacter aerogenes, cloa (test code = enterobacter aerogenes, cloacae) 0.000 ppm 23.000-31.535 enterococcus faecalis, faeci um (test code = enterococcus faecalis, faecium) 0.000 ppm 26.000-31.575 escherichia coli (test code = escherichia coli) 0.000 ppm 23.000-28.500 klebsiella pneumoniae, oxyto ca (test code = klebsiella pneumoniae, oxytoca) 0.000 ppm 23.000-30.500 morganella morganii (test co de = morganella morganii) 0.000 ppm 19.961-24.689 proteus mirabilis, vulgaris (test code = proteus mirabilis, vulgaris) 0.000 ppm 23.000-28.500 pseudomonas aeruginosa (test code = pseudomonas aeruginosa) 0.000 ppm 23.000-28.500 staphylococcus aureus (test code = staphylococcus aureus) 0.000 ppm 26.000-30.902 streptococcus agalactiae (gr oup B strep) (test code = streptococcus agalactiae (group B strep)) 0.000 ppm 26.000-32.222 ivon albicans, parapsilos is, tropicalis (test code = ivon albicans, parapsilosis, tropicalis) 0.000 ppm 19.961-30.770 ivon glabrata (nakaseomyc es glabratus) (test code = ivon glabrata (nakaseomyces glabratus)) 0.000 ppm 23.000-32.138 ivon krusei (pichia kudriavzevii) (test code = ivon krusei (pichia kudriavzevii)) 0.000 ppm 23.000-32.271 serratia marcescens (test co de = serratia marcescens) 0.000 ppm 23.000-31.204 streptococcus pyogenes (grou p A strep) (test code = streptococcus pyogenes (group A strep)) 0.000 ppm 19.961-24.689 staphylococcus saprophyticus (test code = staphylococcus saprophyticus) 0.000 ppm 19.961-24.689 staphylococcus epidermidis, haemolyticus, lugdunensis (test code = staphylococcus epidermidis, haemolyticus, lugdunensis) 31.167 ppm 19.961-24.689 [facility] Medicalurinalysis, [id number] 14:15:00* Test Item Value Reference Range Interpretation Comme nts Leukocytes (test code = Leukocytes) 1+ Nitrite (test code = Nitrite) negative Urobilinogen (test code = Urobilinogen) Normal Protein (test code = Protein) Negative pH (test code = pH) 6.5 Blood (test code = Blood) 3+ Specific [place] (test code = Specific [place]) 1.010 Ketone (test code = Ketone) Negative Bilirubin (test code = Bilirubin) Negative Glucose (test code = Glucose) Negative Appearance (test code = Appearance) Clear Color (test code = Color) Pale Yellow [facility] Medical[facility]inalysis, [id number] 09:40:24* Test Item Value Reference Range Interpretation Comme nts Leukocytes (test code = Leukocytes) Negative Nitrite (test code = Nitrite) negative Urobilinogen (test code = Urobilinogen) Normal Protein (test code = Protein) Negative pH (test code = pH) 6.0 Blood (test code = Blood) Negative Specific [place] (test code = Specific [place]) 1.010 Ketone (test code = Ketone) Negative Bilirubin (test code = Bilirubin) Negative Glucose (test code = Glucose) Negative Appearance (test code = Appearance) Clear Color (test code = Color) Yellow Tyrell [id number] (COVID-19) Ag [Presence] in Respiratory specimen by Rapid [id number] 16:57:00* Test Item Value Reference Range Interpretation Comme nts SARS CoV 2 (test code = SARS CoV 2) positive [facility] Notes Date/Time Note Provider Source 2024-12-23 07:07:00 [id number] [facility] [place] [address] [address] PATIENT NAME: DANITA MORGAN ADMIT DATE: 12/18/24 ACCOUNT NO: [id number] ROOM NO: [id number] AGE: 69 REPORT TYPE: DISCHARGE SUMMARY REPORT SEX: F ADMITTING PHYSICIAN:Mauri Guadalupe MD ATTENDING PHYSICIAN:Mauri Guadalupe MD ADMISSION DATE: 12/18/2024 08:52:00 DISCHARGE DATE: 12/19/2024 10:55:00 ADMITTING DIAGNOSIS: Degenerative joint disease, left knee. DISCHARGE DIAGNOSIS: Status post left total knee arthroplasty. OPERATIONS AND PROCEDURES: On the day of admission, the above listed procedure was performed under spinal anesthesia with 75 mL of blood loss. Patient was mobilized with physical therapy, weight bearing as tolerated. The patient's extremity was neurovascularly intact following surgery. The dressing was clean and dry. The patient's pain was manageable with oral medications. The patient progressed with mobility and physical therapy and was ready to safely discharge home. DISCHARGE INSTRUCTIONS: Activity is weightbearing as tolerated. Hip replacement patients have posterior pose avoidance precautions for 6 weeks. DISCHARGE MEDICATION: DVT prophylaxis with "aspirin": "Aspirin 81 mg twice daily for 4 weeks." "Usual anticoagulants doxy": "Doxycycline 100 mg twice daily for 7 days." Follow-up with Dr. Stanislaw Guadalupe in 10 days. Condition is stable. Disposition is discharge to home. Dictated By: Mauri Guadalupe MD Date Dictated: 12/23/2024 07:07:49 Date Transcribed: 12/23/2024 07:22:16 [facility] Receipt ID: [id number] Authenticated by Mauri Guadalupe MD On 12/23/2024 12:13:41 PM at 1213 PATIENT NAME: DANITA MORGAN [facility] 2024-12-18 13:55:00 [facility] ([facility]) Brief Op Note REPORT#:[id number] REPORT STATUS: Signed REPORT INITIALIZATION DATE:12/18/24 TIME: 1355 PATIENT: DANITA MORGAN UNIT #: [id number] ROOM/BED: [place] [address] : 56 AGE: 69 SEX: F ATTEND: Mauri Guadalupe MD ADM AUTHOR: Mauri Guadalupe MD REPT SERVICE DT/TIME: 12/18/24 1355 * ALL edits or amendments must be made on the electronic/computer document * Op/Inv Proc Note - Brief Pre-procedure diagnosis: djd lt knee Post-procedure diagnosis: same as pre procedure dx Procedures performed: lt tka Primary Surgeon: scar Candy Separator Enrobing(s): carina Anesthesia: spinal anesthetic Findings: djd Complications: none Estimated blood loss in ml's: 75 Specimens removed/altered: none at 1356 RPT #:[id number] END OF REPORT [facility] 2024-11-19 11:26:00 [id number] [place] [address] PATIENT NAME: DANITA MORGAN ADMIT DATE: ACCOUNT NO: [id number] ROOM NO: AGE: 69 REPORT TYPE: ELECTROCARDIOGRAM SEX: F ADMITTING PHYSICIAN: ATTENDING PHYSICIAN:Mauri Guadalupe MD Order: [id number] Test Reason : PREOP CLEARANCE H/O HTN Test Date/Time Stamp: MonNov 19 2024 11:26:38 Blood Pressure : / mmHG Vent. Rate : 053 BPM Atrial Rate : 053 BPM P-R Int : 190 ms QRS Dur : 086 ms QT Int : 434 ms P-R-T Axes : 067 034 036 degrees QTc Int : 407 ms Sinus bradycardia Otherwise normal ECG No previous ECGs available Confirmed by POOJA DEMARCO ([id number]) on 11/21/2024 9:49:41 AM Referred By: Mauri Guadalupe Confirmed by:POOJA DEMARCO PATIENT NAME: DANITA MORGAN [facility] 2024-06-27 19:19:22 Associated Problem(s): Primary localized osteoarthritis of left knee Discussed with Ms. Morgan conservative treatment options for osteoarthritis. Treatment included pain medication (NSAID's and topicals), bracing, physical therapy, cortisone injections, hyaluronic acid, PRP, and stem cells. Patient has already had a cortisone injection as well as FELIX injections and does not feel like they are helping. She saw her previous orthopedic surgeon had recommended total knee arthroplasty and she was wanting a second opinion. I did advise her that I felt like as if it a total knee arthroplasty is warranted due to the [id number] on the x-ray. She states she would like to think about it and will call us back and let us know. T [facility]
[2025-07-16] MEDS ORDERED: DIAZEPAM 5 MG TABLET ONE (09:23)
[2025-07-16] MEDS ORDERED: OXYMETAZOLINE HCL 0.05% 30ML NAS ONE (09:23)
[2025-07-16] MEDS ORDERED: NA CHLORIDE 0.9% 1,000 ML ONE (09:44)
[2025-07-16] MEDS ORDERED: HYDRALAZINE HCL 20 MG/ML VIAL ONE (09:44)
[2025-07-16 09:52] LABS: Absolute Lymphocytes (CBC) 1.8 K/uL (0.7-4.9); Hematocrit 45.4 % (36.0-45.0); Hemoglobin 15.2 g/dL (12.0-15.0); MCH 32.0 pg (27.0-35.0); MCHC 33.4 g/dL (32.0-36.0); MCV 95.8 fL (80-100); MPV 8.8 fL (7.6-11.3); Nucleated RBC Absolute Count 0.0 (0-0); Nucleated Red Blood Cells % 0.1 % (0-0); RBC Red Blood Cell Count 4.74 M/uL (3.86-4.86); White Blood Count 5.80 thou/uL (4.3-10.9)
[2025-07-16 10:00] LABS: PT Prothrombin Time 11.2 SECONDS (10-13.0); Protime INR 0.99
[2025-07-16 10:13] LABS: ALT/SGPT 66.0 U/L (13-56); AST/SGOT 18.0 U/L (15-37); Albumin 3.7 g/dL (3.4-5.0); Albumin/Globulin Ratio 0.9 (1.1-1.8); Alkaline Phosphatase 83.0 U/L (45-117); Anion Gap 7.3 mEq/L (5.0-15.0); BUN Blood Urea Nitrogen 18.0 mg/dL (7-18); Globulin 4.0 g/dL (2.3-3.5); Glucose Level 88.0 mg/dL (74-106); Potassium 3.3 mEq/L (3.5-5.1)
--- NOTE | 2025-07-16 12:27 | ER ---
Nurse's Notes [facility] Name: Danita Soto Age: 69 yrs Sex: Female : 1955 Arrival Date: 07/16/2025 Time: 09:06 Bed 16 Private MD: Diagnosis: Epistaxis Presentation: 07/16 09:30 Chief complaint: Patient states: "I started having a nose bleed out of my left nostril mb9 this morning. I had to be hospitalized last time and can't get in to see Dr. Cantu until next week." Pt does not take blood thinners. Nose clamp applied on pt. Coronavirus screen: Vaccine status: Patient reports being unvaccinated. Ebola Screen: No symptoms or risks identified at this time. Initial Sepsis Screen: Does the patient meet any 2 criteria? No. Patient's initial sepsis screen is negative. Does the patient have a suspected source of infection? No. Patient's initial sepsis screen is negative. Risk Assessment: Do you want to hurt yourself or someone else? Patient reports no desire to harm self or others. Onset of symptoms was July 16, 2025. 09:30 Acuity: LOBITO 3 mb9 09:30 Method Of Arrival: Ambulatory mb9 Triage Assessment: 09:32 General: Appears uncomfortable, Behavior is cooperative. Pain: Denies pain. EENT: Nares mb9 with bleeding noted on left. Neuro: Morales Agitation-Sedation Scale (RASS): 0 - Alert and Calm Level of Consciousness is awake, alert, obeys commands, Oriented to person, place, time, situation, Appropriate for age. Cardiovascular: Patient's skin is warm and dry. Respiratory: Airway is patent Respiratory effort is even, unlabored, Respiratory pattern is regular, symmetrical. GI: No signs and/or symptoms were reported involving the gastrointestinal system. : No signs and/or symptoms were reported regarding the genitourinary system. Derm: Skin is pink, warm \\T\\ dry. Musculoskeletal: Range of motion: intact in all extremities. Historical: - Allergies: 09:32 No Known Allergies; mb9 - Home Meds: :32 olmesartan-hydrochlorothiazide 40-25 mg Oral tablet daily [Active]; mb9 - PMHx: 09:32 Hypertensive disorder; mb9 - PSHx: 09:32 Ligation of fallopian tube; pelvic floor; Total abdominal hysterectomy; mb9 - Immunization history:: Adult Immunizations up to date. - Infectious Disease History:: Denies. - Social history:: Smoking status: Patient denies any tobacco usage or history of. Screenin:34 [facility] ED Fall Risk Assessment (Adult) History of falling in the last 3 months, mb9 including since admission No falls in past 3 months (0 pts) Confusion or Disorientation No (0 pts) Intoxicated or Sedated No (0 pts) Impaired Gait No (0 pts) Mobility Assist Device Used No (0 pt) Altered Elimination No (0 pt) Score/Fall Risk Level 0 - 2 = Low Risk Oriented to surroundings, Maintained a safe environment, Educated pt \\T\\ family on fall prevention, incl call for assistance when getting out of bed. Abuse screen: Denies threats or abuse. Nutritional screening: No deficits noted. Tuberculosis screening: No symptoms or risk factors identified. Assessment: 09:33 Reassessment: see triage assessment. Pt did not take morning BP medicine. mb9 10:15 Reassessment: No changes from previously documented assessment. Patient and/or family mb9 updated on plan of care and expected duration. Pain level reassessed. Patient is alert, oriented x 3, equal unlabored respirations, skin warm/dry/pink. 11:10 Reassessment: No changes from previously documented assessment. Patient and/or family mb9 updated on plan of care and expected duration. Pain level reassessed. Patient is alert, oriented x 3, equal unlabored respirations, skin warm/dry/pink. 13:01 Reassessment: No changes from previously documented assessment. Patient and/or family mb9 updated on plan of care and expected duration. Pain level reassessed. Patient is alert, oriented x 3, equal unlabored respirations, skin warm/dry/pink. 15:08 Reassessment: Patient appears in no apparent distress at this time. No changes from mb9 previously documented assessment. Patient and/or family updated on plan of care and expected duration. Pain level reassessed. Patient is alert, oriented x 3, equal unlabored respirations, skin warm/dry/pink. Vital Signs: 09:30 BP 213 / 108; Pulse 83; Resp 18; Temp 98.6; Pulse Ox 100% on R/A; Weight 86.18 kg; mb9 Height 5 ft. 4 in. ; 09:42 BP 170 / 88; Pulse 85; Resp 18; Pulse Ox 100% ; mb9 10:52 BP 152 / 72; Pulse 74; Resp 16; Pulse Ox 100% on R/A; mb9 13:01 BP 150 / 83; Pulse 72; Resp 18; Pulse Ox 100% on R/A; mb9 15:08 BP 146 / 82; Pulse 74; Resp 18; Pulse Ox 99% on R/A; mb9 09:30 Body Mass Index 32.61 (86.18 kg, 162.56 cm) mb9 ED Course: 09:09 Patient arrived in ED. al6 09:09 [facility] dr5 09:09 Ter Mercado DO is Attending Physician. dr5 09:21 Adrianne Joseph RN is Primary Nurse. mb9 09:21 Arm band placed on. mb9 09:32 Triage completed. mb9 09:34 Bed in low position. Call light in reach. Side rails up X 1. Provided Education on: mb9 press call light if needing anything. Client placed on continuous cardiac and pulse oximetry monitoring. NIBP monitoring applied. 09:40 Assist provider with nosebleed control using Afrin sprays, rhino rocket placed for mb9 extensive packing needs, Bleeding from left nare. Set up for procedure. Performed by Alvarado CARVER Bleeding decreased. Patient tolerated well. 09:42 Initial lab(s) drawn, by me, sent to lab. Inserted saline lock: 20 gauge in right mb9 antecubital area, using aseptic technique. Blood collected. Flushed with 10 mL NS. 09:43 CMP Sent. mb9 09:43 PT-INR Sent. mb9 09:43 CBC with Diff Sent. mb9 12:26 Apolinar Edwards is Hospitalizing Provider. dr5 14:09 Robby Ugalde MD is Hospitalizing Provider. dr5 15:08 Patient admitted, IV remains in place. mb9 Administered Medications: 09:29 Drug: Oxymetazoline Intranasal Drops (0.05 %) 1 sprays Intranasal once Route: mb9 Intranasal; Site: left nare; 09:30 Drug: Diazepam PO 5 mg PO once Route: PO; mb9 10:52 Follow up: Response: No adverse reaction mb9 09:49 Drug: NS 0.9% IV 1000 ml IV at 1000 ml once; to be given as a bolus over 60 minutes mb9 Route: IV; Rate: 1000 ml; Site: right antecubital; 10:52 Follow up: Response: No adverse reaction; IV Status: Completed infusion mb9 09:49 Drug: hydrALAZINE IVP 5 mg IVP once Route: IVP; Site: right antecubital; mb9 10:52 Follow up: Response: No adverse reaction mb9 Medication: 09:34 VIS not applicable for this client. mb9 Outcome: 12:27 Decision to Hospitalize by Provider. dr5 14:10 Decision to Hospitalize by Provider. dr5 16:29 Patient left the ED. iw Signatures: Katalina Lantigua RN RN Adrianne Ravi RN RN mb9 Alvaraod Singh, BRIANA-C SOLE DYER-Cdr5 Cynthia Diallo Corrections: (The following items were deleted from the chart) 09:32 09:30 Chief complaint: Patient states: "I started having a nose bleed out of my left mb9 nostril this morning. I had to be hospitalized last time and can't get in to see Dr. Cantu until next week." mb9 09:33 09:30 Chief complaint: Patient states: "I started having a nose bleed out of my left mb9 nostril this morning. I had to be hospitalized last time and can't get in to see Dr. Cantu until next week." Pt does not take blood thinners mb9 09:49 09:34 No provider procedures requiring assistance completed. mb9 mb9
--- NOTE | 2025-07-16 12:28 | EDPHYS ---
Physician Documentation [facility] Name: Danita Soto Age: 69 yrs Sex: Female : 1955 Arrival Date: 07/16/2025 Time: 09:06 Bed 16 Private MD: ED Physician Tre Mercado HPI: 07/16 09:40 This 69 yrs old Female presents to ER via Ambulatory with complaints of Nose dr5 Bleed. 09:40 The patient presents with a nose bleed, that is apparently anterior, occurred dr5 spontaneously, that is continuous moderate amount causative factors include: unknown, and the bleeding is not resolved and continues in ER. Onset: The symptoms/episode began/occurred this morning. Patient is a 69-year-old female with history of hypertension coming in with left-sided epistaxis has been intermittent for the past week. Patient denies being bothered. Patient states that she has been taking her blood pressure medication as prescribed. Patient states she has tried direct pressure on left side with no resolution. Patient states that she has seen Dr. Cantu last year and was hospitalized with cauterization due to not being able to stop bleeding. Patient denies dizziness, nausea, vomiting, diarrhea, chest pain, shortness of breath.. Historical: - Allergies: 09:32 No Known Allergies; mb9 - Home Meds: 09:32 olmesartan-hydrochlorothiazide 40-25 mg Oral tablet daily [Active]; mb9 - PMHx: 09:32 Hypertensive disorder; mb9 - PSHx: 09:32 Ligation of fallopian tube; pelvic floor; Total abdominal hysterectomy; mb9 - Immunization history:: Adult Immunizations up to date. - Infectious Disease History:: Denies. - Social history:: Smoking status: Patient denies any tobacco usage or history of. ROS: 09:40 Constitutional: as per hpi dr5 Exam: 09:40 Constitutional: This is a well developed, well nourished patient who is awake, alert, dr5 and in no acute distress. Head/Face: Normocephalic, atraumatic. Eyes: Pupils equal round and reactive to light, extra-ocular motions intact. Lids and lashes normal. Conjunctiva and sclera are non-icteric and not injected. Cornea within normal limits. Periorbital areas with no swelling, redness, or edema. 09:40 Chest/axilla: Normal chest wall appearance and motion. Nontender with no deformity. No lesions are appreciated. Cardiovascular: Regular rate and rhythm with a normal S1 and S2. Normal PMI, no JVD. No pulse deficits. Respiratory: Lungs have equal breath sounds bilaterally, clear to auscultation. No rales, rhonchi or wheezes noted. No increased work of breathing, no retractions or nasal flaring. Back: No spinal tenderness. No costovertebral tenderness. Full range of motion. Skin: Warm, dry with normal turgor. Normal color with no rashes, no lesions, and no evidence of cellulitis. MS/ Extremity: Pulses equal, no cyanosis. Neurovascular intact. Full, normal range of motion. Neuro: Awake and alert, GCS 15, oriented to person, place, time, and situation. Cranial nerves II-XII grossly intact. Motor strength 5/5 in all extremities. Sensory grossly intact. Cerebellar exam normal. Normal gait. 09:40 ENT: External ear(s): are unremarkable, Ear canal(s): are normal, TM's: are normal, Nose: Turbinates: are swollen on the left, bleeding, is seen from the left nare, and is moderate, no septal hematoma is appreciated, Mouth: Patient is spitting up blood clots., Vital Signs: 09:30 BP 213 / 108; Pulse 83; Resp 18; Temp 98.6; Pulse Ox 100% on R/A; Weight 86.18 kg; mb9 Height 5 ft. 4 in. ; 09:42 BP 170 / 88; Pulse 85; Resp 18; Pulse Ox 100% ; mb9 10:52 BP 152 / 72; Pulse 74; Resp 16; Pulse Ox 100% on R/A; mb9 13:01 BP 150 / 83; Pulse 72; Resp 18; Pulse Ox 100% on R/A; mb9 15:08 BP 146 / 82; Pulse 74; Resp 18; Pulse Ox 99% on R/A; mb9 09:30 Body Mass Index 32.61 (86.18 kg, 162.56 cm) mb9 Procedures: 09:39 Epistaxis treatment: Copious amount of bleeding noted from left nare. Treated using dr5 anterior packing, 5.5 cm, Bleeding decreased. Afrin applied prior to anterior packing with no change. Put in anterior packing as patient had copious amounts of bleeding.. MDM: 09:10 Medical Screening Exam initiated dr5 11:01 ED course: Checked on patient after Rhino Rocket placement. Bleeding has slowed down dr5 but still bleeding around rocket. Patient reports she would like to be admitted to have this fixed as she has had this before and wasn't able to be resolved on her own.. ED course: Reached out to Dr. Stratton for consult - front desk lead will send her an urgent consult. I left my phone number for callback.. 12:27 Differential diagnosis: foreign body - resolved, nasal fracture, trauma, sinusitis, dr5 spontaneous epistaxis. Data reviewed: vital signs, nurses notes, lab test result(s), CBC, white blood cell count, hemoglobin, hematocrit, platelets, electrolytes, sodium, potassium, chloride, serum bicarbonate, BUN, creatinine, serum glucose, PT/INR. Consideration of Admission/Observation Patient was admitted/placed on observation. Management of patient was discussed with the following: Hospitalist: Dr. Edwards. Sign Painter: Dr. Stratton -will see in hospital.. I considered the following discharge prescriptions or medication management in the emergency department I discussed and recommended Over The Counter medications, Medications were administered in the Emergency Department. See MAR. Test considered but Not performed: CT: CT considered but not completed due to patient having history of spontaneous epistaxis.. Historians other than the Patient: Spouse/Significant Other: Spouse. Care significantly affected by the following chronic conditions: Hypertension. Care significantly affected by the following Social Determinants of Health: Poor access to healthcare and/or lack of insurance, Poor access to transportation, Problems related to employment. Counseling: I had a detailed discussion with the patient and/or guardian regarding the historical points, exam findings, and any diagnostic results supporting the discharge/admit diagnosis, the presence of at least one elevated blood pressure reading (>120/80) during this emergency department visit, lab results, the need for further work-up and treatment in the hospital. Medication response: Hydralazine IV. Response to treatment: the patient's symptoms have markedly improved after treatment. ED course: Dr. Stratton will see patient during admission stay for likely cauterization of left nare. Hemoglobin stable. Will admit patient to Dr. Ugalde. Patient's blood pressure during ER stay has been stable and patient denies any symptoms at this time.. 13:02 ED course: Found patient to be an Ugalde patient. Called him and he will call back.. dr5 14:10 Management of patient was discussed with the following: Primary Care Provider: Dr. Ugalde dr5 - Recommended observation and consult to Stratton for left sided epistaxis.. 07/16 09:38 Order name: CBC with Diff; Complete Time: 09:59 dr5 07/16 09:38 Order name: PT-INR; Complete Time: 10:01 dr5 07/16 09:38 Order name: CMP; Complete Time: 10:13 dr5 07/16 14:20 Order name: Basic Metabolic Panel EDMS 07/16 14:20 Order name: Basic Metabolic Panel EDMS 07/16 14:20 Order name: CBC with Automated Diff EDMS 07/16 14:20 Order name: CBC with Automated Diff EDMS 07/16 14:19 Order name: CONS Physician Consult EDMS 07/16 09:43 Order name: IV Saline Lock; Complete Time: 09:43 mb9 Administered Medications: 09:29 Drug: Oxymetazoline Intranasal Drops (0.05 %) 1 sprays Intranasal once Route: mb9 Intranasal; Site: left nare; 09:30 Drug: Diazepam PO 5 mg PO once Route: PO; mb9 10:52 Follow up: Response: No adverse reaction mb9 09:49 Drug: NS 0.9% IV 1000 ml IV at 1000 ml once; to be given as a bolus over 60 minutes mb9 Route: IV; Rate: 1000 ml; Site: right antecubital; 10:52 Follow up: Response: No adverse reaction; IV Status: Completed infusion mb9 09:49 Drug: hydrALAZINE IVP 5 mg IVP once Route: IVP; Site: right antecubital; mb9 10:52 Follow up: Response: No adverse reaction mb9 Disposition: 11:34 I was immediately available on-site in the Emergency Department for consultation in the ms3 care of the patient. Disposition Summary: 07/16/25 14:10 Hospitalization Ordered Notes: Hospitalization Status: Observation(07/16/25 14:10) dr5 Provider: Robby Ugalde(07/16/25 14:10) dr5 Location: Telemetry/MedSurg (observation)(07/16/25 14:10) dr5 Condition: Stable(07/16/25 14:10) dr5 Problem: new(07/16/25 14:10) dr5 Symptoms: have worsened(07/16/25 14:10) dr5 Bed/Room Type: Standard(07/16/25 14:10) dr5 Room Assignment: [facility] [place](07/16/25 15:24) bd Diagnosis - Epistaxis(07/16/25 14:10) dr5 Forms: - Medication Reconciliation Form dr5 - SBAR form dr5 - Leadership Thank You Letter dr5 Critical care time excluding procedures: 09:51 Critical care time: Bedside Care: 25 minutes, Consultation: 5 minutes. Total time: 30 dr5 minutes Signatures: Dispatcher [employer] EDMS Naye fang bd Tre Mercado, DO ms3 Adrianne Joseph RN RN mb9 Alvarado Singh, PROVIDER RELATIONS REP-C PROVIDER RELATIONS REP-Cdr5 Corrections: (The following items were deleted from the chart) 09:38 09:38 CBC+H.LAB.BRZ ordered. EDMS EDMS 09:38 09:38 PROTIME (+INR)+COAG.LAB.BRZ ordered. EDMS EDMS 09:38 09:38 COMPREHENSIVE METABOLIC PANEL+C.LAB.BRZ ordered. EDMS EDMS 12:57 12:27 Inpatient Admission dr5 dr5 12:57 12:27 Apolinar Edwards dr5 dr5 12:57 12:27 Telemetry/MedSurg (Inpatient) dr5 dr5 12:57 12:27 [address]able dr5 dr5 12:57 12:[address] new dr5 dr5 12:57 12:27 have worsened dr5 dr5 12:57 12:27 Standard dr5 dr5 12:57 12:27 dr5 dr5 12:57 12:[address]axis dr5 dr5 13:02 12:27 ED course: Dr. Stratton will see patient during admission stay for likely dr5 cauterization of left nare. Hemoglobin stable. Will admit patient to hospitalist. Patient's blood pressure during ER stay has been stable and patient denies any symptoms at this time.. dr5 15:24 14:10 dr5 bd
[2025-07-16] MEDS ORDERED: ACETAMINOPHEN 500 MG TAB PO PRN (14:17)
[2025-07-16 17:00] VITALS: BMI 32.5
[2025-07-16] MEDS: NA CHLORIDE 0.9% 1,000 ML IV SCH (17:36)
[2025-07-16] MEDS: AMLODIPINE 5 MG TAB PO ONE (18:24)
[2025-07-16] MEDS: FLU (Fluarix) 25-26 (6MOS UP)/PF 45 MCG/0.5 ML Syringe IM ONE (19:00)
--- NOTE | 2025-07-17 02:41 | HP ---
Date of Admission: 07/16/2025 Chief Complaint: Nosebleed. History Of Present Illness: This is a 69-year-old pleasant female patient who came to emergency room today with worsening of nose bleeding problem started 1 week ago. The patient reports having 7 epis odes in last 7 days of nose bleeding and she did have similar problem about a year ago for which she saw Dr. Cantu and had cauterization of some blood vessels inside her nasal and sinus air passages and she did fine until a week ago when she started to have this recurrent problem with nose bleeding, so she did reach out to Dr. Cantu's office yesterday and she was not able to get appointment until next w [facility] and meanwhile today her nosebleed problem got worse when she was at the hospital with her . She had severe episode of nose bleeding, which she was not able to stop it by applying local press ure, so she went down to the emergency room and after she was evaluated in the ER, rhino adrian was p laced in her left nostril and I was contacted requesting admission to the hospital with ENT consultat ion with Dr. Stratton who is on-call and the emergency room provider has communicated and discussed de tails with her. The patient was admitted to the hospital and I saw her this evening. She denies any fever or any other problems. She has not had any more nose bleeding since admission to the hospital . Allergies: NO KNOWN ALLERGIES. Medications: Ventolin inhaler 2 puffs 4 times a day as needed for shortness of breath, Breyna inhale r 2 puffs 2 times a day, olmesartan/HCTZ 40/25 mg taking 1 tablet daily, Claritin 10 mg daily as need ed for allergies. Review of Systems: ENT as mentioned above. All other systems reviewed and negative. Past Medical History: Significant for vertigo, mild persistent asthma, hypertension, hyperlipidemia, diverticulosis, and allergic rhinitis. Past Surgical History: Tubal ligation and hysterectomy, August 09, 2012. Family History: Father due to congestive heart failure and coronary artery disease at age 52. Mother had lupus. Brother with congestive heart failure and stroke. Sister has hypertension. Social History: Negative for smoking and alcohol use. Physical Examination: Vital Signs: Temperature 98.6, pulse 83, respiratory rate 18, blood pressure upon admission was 213/ 108. Last blood pressure was 146/82 and after that just while ago her last blood pressure was ____. Oxygen saturation 100%. Height 5 feet 4 inches, weight 190 pounds. General: Awake, alert, oriented, not in distress. HEENT: Head atraumatic, normocephalic. Conjunctivae nonerythematous. Sclerae white. Mouth, no thr ush or edema noted. Ears/Nose, no mass, lesion, discharge noted. The patient has left nostril packi ng in place. Neck: Supple. No JVD, lymph nodes, bruit, thyromegaly noted. Lungs: Bilateral good equal air entry. Clear to auscultation. No rhonchi. No rales. Heart: Normal heart sounds, no murmur or gallop. Abdomen: Soft, bowel sounds normal. No guarding, rigidity, tenderness, mass, hepatosplenomegaly, dis tention, or bruit noted. Extremities: No leg edema. No calf tenderness. Skin: No rash, ulcer, cellulitis. Lymphatics: No lymph node enlargement in neck, supraclavicular, infraclavicular region. Neuro: No focal neurological deficit. Chest: Unremarkable. External Genitalia: Deferred. Rectal: Deferred. Laboratory Data: WBC 5.8, hemoglobin 15.2, platelets 229. Sodium 139, potassium 3.3, chloride 105, bicarb 30, BUN 18, creatinine 0.76, glucose 88. Liver function tests unremarkable. Impression: 1. Epistaxis. 2. Hypokalemia. 3. Hypertension. 4. Hyperlipidemia. 5. Diverticulosis. 6. Mild persistent asthma. 7. Allergic rhinitis. Plan: We will go ahead and admit the patient to the hospital for further evaluation and management o f this problem. The patient is appropriate for observation. We will consult ENT for further evaluat ion and management of this recurrent epistaxis problem. I have advised the patient to stay n.p.o. af ter midnight in case if Dr. Stratton wants to do any surgical intervention tomorrow. Amlodipine 5 mg p.o. x1 dose will be given this evening for high blood pressure. She needs to take her olmesartan do se this afternoon. We will monitor blood pressure if necessary, adjust medication. Her other medica l problems will not require any further intervention. Asthma problem is stable. Will not require an y further intervention. Total time spent 60 minutes including review of last office visit record from 05/15/2025, review of e mergency room visit record, communication with the emergency room provider and performing today's tarun luation and management. BEVERLY/DAYANNA Voice ID: [id number]
[2025-07-17 04:53] LABS: Absolute Lymphocytes (CBC) 1.2 K/uL (0.7-4.9); Hematocrit 38.4 % (36.0-45.0); Hemoglobin 13.6 g/dL (12.0-15.0); MCH 33.2 pg (27.0-35.0); MCHC 35.4 g/dL (32.0-36.0); MCV 93.7 fL (80-100); MPV 8.7 fL (7.6-11.3); Nucleated RBC Absolute Count 0.0 (0-0); Nucleated Red Blood Cells % 0.2 % (0-0); RBC Red Blood Cell Count 4.09 M/uL (3.86-4.86); White Blood Count 6.00 thou/uL (4.3-10.9)
[2025-07-17 05:02] LABS: Anion Gap 4.0 mEq/L (5.0-15.0); BUN Blood Urea Nitrogen 11.0 mg/dL (7-18); Glucose Level 104.0 mg/dL (74-106); Potassium 3.0 mEq/L (3.5-5.1)
[2025-07-17] MEDS ORDERED: ONDANSETRON 4 MG/2 ML VIAL ONE (07:58)
[2025-07-17] MEDS ORDERED: LIDOCAINE 2% MPF 5 ML VIAL ONE (07:58)
[2025-07-17] MEDS ORDERED: FENTANYL CITR 100 MCG/2 ML ONE (07:59)
[2025-07-17] MEDS: KCL 20 MEQ/100 mL IVPB 20 MEQ/100 ML BAG IV SCH (08:00)
[2025-07-17] MEDS: D5 0.9 NS 1,000 ML IV SCH (08:00)
[2025-07-17] MEDS: KCL 20 MEQ/100 mL IVPB 100 ML IV ONE (08:05)
[2025-07-17] MEDS: LIDOCAINE HCL/EPINEPHRINE 20 ML MDV ONE (08:12)
[2025-07-17] MEDS: OXYMETAZOLINE HCL 0.05% 30ML NAS ONE (08:12)
--- NOTE | 2025-07-17 08:29 | P.CNS ---
Date of Consult: 07/16/25 Consultation for requested for epistaxis HPI: Patient was seen on the second floor of [facility] at approximately 5:30 PM on July 16. She was in her usual state of health until about 1 week ago when she began having left-sided nosebleeds. Over the last 7 days she has had multiple nosebleeds occurring approximately daily and varying in intensity, typically moderate to severe. She presented to the emergency room on the morning of July 16 with left-sided nosebleed and underwent treatment by the emergency room staff including topical oxymetazoline, transexamic acid and packing with a left Rhino Rocket resulting in control of bleeding but consultation was requested for further management. Of note, the patient had a similar series of episodes in March 2024. At that time, she presented to the emergency room and had a Rhino Rocket placed. She was seen on an outpatient basis approximately 2 days later with removal of the Rhino Rocket by Dr. Stratton and no acute bleeding following removal. Subsequently 2 days later she had recurrence of bleeding and was evaluated by Dr. Cantu. At that time the patient was having severe right sided nosebleed and balloon packing was placed in the clinic and the patient was rerouted back to the emergency room and admitted and brought to the operating room for cauterization of multiple vessels throughout the left nasal cavity including the septum and inferior turbinate. The patient was subsequently discharged and followed up in late March and April with resolution of bleeding. The patient had no additional significant bleeding between April 2024 and June 2025. She is not on any blood thinners. She is diagnosed with hypertension but is on medications and monitored by her PCP Dr. Ugalde and reports that generally her blood pressure has been well-controlled. She has been under significant stress with some health issues involving her spouse recently.. Past medical history: Vertigo, mild persistent asthma, hypertension, hyperlipidemia, diverticulosis and allergic rhinitis Past surgical history tubal ligation and hysterectomy in 2011. Control of epistaxis in the OR with Dr. Cantu March 2024 Home medications: Ventolin, Breyna inhaler, olmesartan/hydrochlorothiazide, Claritin. Allergies: No known drug allergies Review of systems. Reviewed from patient's admission history and physical by Dr. Ugalde with no significant changes. Family history father with CHF and CAD. Mother with lupus. Brother with CHF and stroke. Sister with hypertension Social history: No tobacco or alcohol use. Physical examination: Patient is in no acute distress she is alert and oriented. She has a Rhino Rocket in the left nostril. She is conversive. There is no active bleeding anteriorly from the nose. Records reviewed: Outpatient clinic records from Dr. Stratton and Dr. Cantu from March and April 2024 is made. Additionally hospital records, operative reports and emergency records from March 2024 and July 2025. Assessment: Recurrent epistaxis Recommendations: We discussed usual management of severe epistaxis including leaving packing in situ for 48 to 72 hours followed by removal and observation. Given the patient's prior experience last year requiring multiple courses of packing with eventual surgical intervention, she is unwilling to delay intervention and is highly motivated for surgical intervention with hopes of treating her condition more expeditiously. As such, she will be made n.p.o. and arrangements will be made for operative intervention in the morning since the patient's last meal was approximately 1-1/2 hours prior to my in person evaluation. Care coordination is made on behalf of the patient in regards to operative intervention. Since Dr. Cantu has scheduled cases in the operating room I communicated with her regarding adding the patient onto her schedule. However due to personal obligations she is unable to do so and the patient will be sched uled with Dr. Stratton for nasal endoscopy and control of epistaxis in the operating room tomorrow morning. I spoke with the charge nurse to add the patient onto the schedule for the morning of July 17. A total of 1 hour is spent in review of the patient's records, [id number] evaluation and counseling with the patient and coordination of care and documentation.
[2025-07-17] MEDS: VALSARTAN 160 MG TAB PO SCH (09:00)
[2025-07-17] MEDS ORDERED: ROCURONIUM 50 MG/5 ML VIAL IV ONE (09:06)
[2025-07-17] MEDS ORDERED: EPHEDRINE SULF 50 MG/ML VIAL ONE (09:23)
[2025-07-17 09:58] VITALS: O2SAT 100
[2025-07-17 10:21] VITALS: TEMP 97.3
--- NOTE | 2025-07-17 10:32 | P.OP ---
[employer] Pass[employer] Agent: NONE,NONE Preoperative diagnosis: Recurrent epistaxis Postoperative diagnosis: Same Primary procedure: Nasal endoscopy with control of epistaxis Anesthesia: General Estimated blood loss: Nil Specimen: None Findings: Superficial vessels and mucosal inflammation of ethmoid bulla. Operative Technique: The patient was brought to the operating room and placed under general anesthesia via oral endotracheal tube. The head of bed was turned 90 degrees and the patient was prepped for endoscopic nasal surgery. The 0 degree endoscope was used to perform a nasal endoscopy on the right nasal cavity. There was no significant blood, pus, or polyps. The right septum was deviated with a posterior right septal spur. The nasal floor, inferior meatus, inferior turbinate, middle meatus, middle turbinate and were all unremarkable. It was difficult to visualize the sphenoethmoid recess due to the nasal spur and congestion. With nasal endoscopy, there was mild abrasion of the right inferior turbinate and a Afrin soaked pledget was packed into the nasal cavity. Attention was then turned to the left side. The pre-existing Rhino Rocket was deflated and removed from the left nasal cavity. Of note, the Rhino Rocket was only 4 cm in length. The nasal mucosa was edematous with clear nasal mucus noted on initial endoscopy. Afrin soaked pledgets were packed into the middle meatus and inferior nasal cavity and left in place for several minutes. After removal, the pledgets had no evidence of active blood or blood staining and additional endoscopy was performed including careful inspection of the floor of the nose and inferior meatus, inferior turbinate, middle turbinate, middle meatus and sphenoethmoid recess and nasopharynx. Of all of these structures, there was no clearly obvious source of bleeding noted. There was mild abrasion around the mucocutaneous junction just posterior to the nasal vestibule, likely irritation from placement and positioning of the prior packing. This area did not appear to have any significant bleeding. There was a small amount of old blood noted to be emanating from the maxillary sinus but no significant clot was noted or removed. The area around the sphenopalatine artery was carefully examined but there was no evidence of clot, bleeding or mucosal disruption in this area. A brief consideration was made for a sphenopalatine artery ligation, however it was uncertain whether the bleeding was truly coming from this region or not and this more invasive procedure was deferred. The mucosa overlying the ethmoid bulla appeared hypervascular and irritated and was cauterized using bipolar electrocautery on a setting of 10 W. Overall this area was felt to be the most likely area of bleeding based on the endoscopic exam. There was no evidence of active infection, polyp, or neoplasm of the nasal cavity or visualized portion of the sinuses noted. An additional bipolar electrocautery was applied to the cutaneous junction to ensure absence of bleeding from this region. The mucosa of the left nasal cavity was then treated with Calixto powder and a PosiSep Morris and hemostatic dressing was placed within the nasal cavity and soaked with saline. Attention was then returned to the right side. The Afrin-soaked pledget was removed and judicious bipolar cautery was applied to the head of the inferior turbinate at the site of the abrasion. All pledget counts were confirmed correct and the patient was returned to care of anesthesia for awakening extubation in the operating room which proceeded without difficulty. Complications: None (None) Implants: PosiSep and Calixto powder Fluids & blood products: Crystalloid, see anesthesia record Transferred to: Recovery Room Condition: Good
[2025-07-17 11:51] VITALS: BP 152/65
--- NOTE | 2025-07-18 02:51 | DS ---
Date of Discharge: 07/17/2025 Disposition: Discharged to go home. Physical Examination: HEENT: Unremarkable except presence of nasal packing in the left nostril. No active bleeding noted. Lungs: Clear to auscultation. Heart: Sounds normal. Abdomen: Soft. Bowel sounds normal. No guarding, rigidity, tenderness, distention. Extremities: No leg edema. Discharge Diagnoses: 1. . 2. . Discharge Medications And Instructions: 1. . 2. . Laboratory Data Upon Admission: , . Today, WBC 6, hemoglobin 13.6, platelets 20 4. Sodium 140, potassium 3, chloride 108, bicarb 31, BUN 11, creatinine 0.52, glucose 104. Hospital Course: This is a 69-year-old female patient, who was admitted to the hospital with recurre nt epistaxis problem. Please see dictated H and P for more information. [facility], she was admitted to the hospital with this recurrent epistaxis and Dr. Stratton was consulted from ENT. Nasal packing was placed in the emergency room yesterday and that actually helped to stop bleeding overnight and this morning, Dr. Stratton took her to surgery and after surgery , she contacted me and informed me that from her point of view, the patient can be discharge. Medica lly, she was stable for discharge, so after the procedure today, she was discharged to go home with outpat ient followup with her. BEVERLY/MODL Voice ID: [id number] Report ID: [id number]
== END 2025-07-17 12:34 | disposition home or self-care (01) ==
LOC: ER 09:06 → ERHOLD 14:16 → 2ND 15:40
PROVIDERS: ADMIT Internal Medicine; ATTEND Internal Medicine
PROC: 09JK8ZZ Inspection of Nasal Mucosa and Soft Tissue, Via Natural or Artificial Opening Endoscopic (ICD-10-PCS; principal; 2025-07-17 09:00)
DX: R04.0 Epistaxis (principal); I10 Essential (primary) hypertension; E78.5 Hyperlipidemia, unspecified; J45.30 Mild persistent asthma, uncomplicated; E87.6 Hypokalemia; K57.90 Diverticulosis of intestine, part unspecified, without perforation or abscess without bleeding; J30.9 Allergic rhinitis, unspecified
CPT/HCPCS: 30901; 96361; 93005; 85025 ×2; 80048; 36415; 85610; 80053; 96374; 99284; 31238; J3480; J0360; J2704; J2003; J3010; J1100; J2405; G0378 ×5; J7030 ×2

== ENCOUNTER 2025-07-23 21:34 | Emergency (ER) | payer OTHER ==
--- OUTSIDE RECORDS SUMMARY | 2025-07-23 21:43 | XMS REPORT | Continuity of Care Document ---
Author Name Unknown Address [address] [facility] [place] [address] [facility] Address [address] [facility] [place] [address] Care Team Providers Care Rose Grader Name Role Phone Robby Ugalde Primary Care Physician [phone] Robby Ugalde Attending Clinician Unavailable Mauri Guadalupe Attending Clinician Unavailbranden e MAROI DIAZ Attending Clinician Unavaila Michael Blount APRN Attending Clinician [phone] ISABELLE_GCBZW_Kadiyala_S Attending Clinician Unavaila ble SISSON_C Attending Clinician Unavailable Yobany Antoine Attending Clinician [phone] Robby Ugalde Admitting Clinician Unavailable Mauri Guadalupe Admitting Clinician Unavailabl e GC_GCBZW_Kadiyala_S Admitting Clinician Unavaila ble SISSON_C Admitting Clinician Unavailable Payers Payer Name Policy Type Policy Number Effective Date Expirati on Date Source MEDICARE PART A AND B [id number] 2021 00:00:00 [place] [employer] [id number] 2021 00:00:00 ADIEL (MEDICARE SUPPLEMENT) [id number] 2021 00:00:00 [place] [id number] Problems Condition Name Condition Details Condition Category [...] knee pain Disease Active - 00:00: 00 [facility] Primary localized osteoarthr itis of left knee Primary localized osteoarthr itis of left knee Disease Active - 00:00: 00 [facility] Cystocele Cystocele Problem Active 2022-10 0-25 [...] s DA Active U 3-05 00:00: 00 [facility] No Known Allergie s DA Active U 2-06 00:00: 00 [facility] Social History Social Habit Start Date Stop Date Quantity Comments Source History of Tobacco Use [facility] Sex Assigned At [facility] Sexual orientation [facility] Tobacco use and exposure 2024-06-25 00:00:00 2024-06-25 00:00:00 Smokeless tobacco non-user [facility] History of Social function 2024-06-25 00:00:00 2024-06-25 00:00:00 [facility] Smoking Status Start Date Stop Date Source Never Smoker [facility] Medications Ordered Medication Name Filled [...] vaginal route at bedtime for 90 days. [facility] Multi Vitamin Multi Vitamin No Multi Vitamin [facility] olmesartan olmesartan No olmesartan [facility] Macrobid 100 mg capsule Take 1 capsule every 12 hours by oral route for 7 days. Macrobid 100 mg capsule Take 1 capsule every 12 hours by oral route for 7 days. No 1capsul e(s) Q12H Macrobid 100 mg capsule Take 1 capsule every 12 hours by oral route for 7 days. [facility] magnesium magnesium No magnesium [facility] Estradiol 0.1 MG/GM Estradiol 0.1 [...] (Body Mass Index) 2024-10-29 00:00:00 33.3 kg/m2 [facility] BP Systolic 2024-10-29 00:00:00 159 mm[Hg] [facility] BMI (Body Mass Index) 2024-09-02 00:00:00 33.4 kg/m2 [facility] BP Diastolic 2024-09-02 00:00:00 76 [...] Medical BP Systolic 2024-08-12 00:00:00 138 mm[Hg] [facility] Medical Procedures Procedure Date / Time Performed Performing [facility] n Source CT, urogram 2024-09-02 00:00:00 [facility] M edical DEXA 2024-08-12 00:00:00 [facility] edical MAMMO, screening, digital, bilateral 2024-08-12 00:00:00 [facility] Repair of Vagina 2022-06-21 00:00:00 [facility] Medical Ophthalmology - Cataract Surgery 2022-06-07 00:00:00 [facility] Total Abdominal Hysterectomy with Bilateral Salpingo-oophorectomy 2012-10-16 00:00:00 [facility] Tubal Ligation 1991-10-16 00:00:00 [facility] Plan of Care Planned Activity Planned Date Details Comments Source Diagnostic Test Pending 2020-11-17 00:00:00 COVID-19 RNA (SARS-CoV-2), QL, ict programmer-PCR, 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 [code = COVID-19 RNA (SARS-CoV-2), QL, ict programmer-PCR, 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] [facility] Diagnostic Test Pending 2020-11-17 00:00:00 COVID-19 RNA (SARS-CoV-2), QL, ict programmer-PCR, 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 [code = COVID-19 RNA (SARS-CoV-2), QL, ict programmer-PCR, 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] [facility] Diagnostic Test Pending 2020-11-17 00:00:00 rapid SARS CoV 2 Ag, QL IA, 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 [code = rapid SARS CoV 2 Ag, QL IA, 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] [facility] Encounters Start Date/Time End Date/Time Encounter Type Admission Type Attending [facility] Facility Care Department Encounter ID Source 2024-08-06 08:29:01 Outpatient Robby Ugalde [facility] [id number] 2024-03-25 15:38:00 [facility] [id number] [facility] 2023-08-15 08:54:01 Outpatient Robby Ugalde [facility] [id number] [facility] 2025-01-03 00:00:00 2025-01-03 00:00:00 Esmer Garcia MD: [address], [place] [address] , Ph. [facility] - [facility]GCBZW_[facility]* [id number] [facility] 2024-12-18 08:52:00 2024-12-19 10:55:00 Inpatient Mauri Zee HCAT[facility] SURG [id number] [facility] 2024-12-17 00:00:00 2024-12-17 00:00:00 JOSSELIN Giron: [address], [place] [address] , Ph. Counts include 234 beds at the [facility] GC[facility]GCBZW_[facility]* [id number] [facility] 2024-12-06 09:45:00 2024-12-06 09:45:00 Outpatient Mauri Zee HCATO RADI [id number] [facility] 2024-11-19 15:54:00 2024-11-19 15:54:00 Outpatient Mauri Guadalupe HCACL LABO [id number] 65 [facility] 2024-11-12 00:00:00 2024-11-12 00:00:00 (F/U) Follow Up Visit SEAN ESTRADA [id number] [facility] 2024-10-29 00:00:00 2024-10-29 00:00:00 Esmer Garcia MD: [address], [place] [address] , Ph. [facility] - GC_GCBZW_Nicole wagner Shahid* [id number] [facility] 2024-09-02 00:00:00 2024-09-02 00:00:00 Cassidy Lee PA: [address], [place] [address] , Ph. [facility] - GC_GCBZW_Nicole wagner Shahid* [id number] [facility] 2024-08-30 00:00:00 2024-08-30 00:00:00 JOSSELIN Giron: [address], [place] [id number] , Ph. [facility] - GC_GCBZW_Nicole edward Shahid* [id number] [facility] 2024-08-28 10:30:00 2024-08-28 10:30:00 Outpatient MARIO CHAMBERS [facility] [id number] [facility] 2024-08-12 00:00:00 2024-08-12 00:00:00 BRIANA Crooks: [address], [place] [address] , Ph. [facility] - GC_GCBZW_Nicole edward Shahid* [id number] [facility] 2024-08-06 00:00:00 2024-08-06 00:00:00 (F/U) Follow Up Visit CLS CLS [id number] [facility] 2024-06-25 11:00:00 2024-06-25 11:52:46 Outpatient [facility] [id number] [facility] 2024-06-25 11:00:00 2024-06-25 11:52:39 Office Visit [facility] Bundy [place] [facility] [id number] [facility] 2020-11-17 00:00:00 2020-11-17 00:00:00 Outpatient Arash Yobany [facility] [id number] 2020-11-17 00:00:00 2020-11-17 00:00:00 Yobany Antoine, MSN, TRAVELING REPAIR ACCOUNTANT, SED SPECIAL EDUCATION TEACHER-C: [address], [address], [place] [address] , Ph. [facility], Yobany Antoine, MSN, SED SPECIAL EDUCATION TEACHER-C [id number] [facility] Results Test Description Test Time Test Comments Results Result Co mments Source [facility] Medicalinfectious disease [id number] 00:00:00* Test Item Value Reference Range Interpretation [...] haemolyticus, lugdunensis) 0.000 ppm 19.961-24.689 [facility], [id number] 11:58:23* Test Item Value Reference Range Interpretation Comme nts Leukocytes (test code = Leukocytes) 1+ Nitrite (test code = Nitrite) negative Urobilinogen (test code = Urobilinogen) Normal Protein (test code = Protein) Negative pH (test code = pH) 6.0 Blood (test code = Blood) 3+ Specific [place] (test code = Specific [place]) 1.010 Ketone (test code = Ketone) Negative Bilirubin (test code = Bilirubin) Negative Glucose (test code = Glucose) Negative Appearance (test code = Appearance) Clear Color (test code = Color) Yellow [facility] MedicalVITAMIN D 1,01-[id number] 15:54:00* Test Item Value Reference Range Interpretation Comme nts VITAMIN D 1,25-DIHYDROXY (test code = HBBD927) 59.3 pg/mL 24.8-81.5 Performed At: [address] [id number] Barrientos MD Ph:[phone] GLYCOSYLATED HEMOGLOBIN (HA1C)2024-11-19 15:34:00* Test Item Value [...] fructosamineshould be considered for these patients.DONE AT: [address] [id number] GLYCOSYLATED HEMOGLOBIN (HA1C)2024-11-19 15:33:00* Test Item Value Reference Range Interpretation Comme nts GLYCOSYLATED HEMOGLOBIN (HA1 C) (test code = GLYHGB) < 4.75 % 0.0-5.6 N COMPREHENSIVE METABOLIC [id number] 12:25:00* Test Item Value Reference Range Interpretation [...] = ALKP) 75 U/L 46-116 N PROTHROMBIN [id number] 12:14:00* Test Item Value Reference Range Interpretation [...] intravascular valves IS PATIENT ON ANTICOAGULANTS ? [facility] been notified if Patient is on Heparin Drip? NOTHROMBOPLASTIN TIME [id number] 12:14:00* Test Item Value Reference Range Interpretation Comme nts PTT ACTIVATED (test code = APTT) 30.2 secs 25.1-36.5 N IS PATIENT ON ANTICOAGULANTS ? [facility] been notified if Patient is on Heparin Drip? NOCBC W/AUTO [id number] 12:05:00* Test Item Value Reference Range Interpretation [...] = NRBC) 0 % 0-0 N urinalysis, [id number] 13:22:50* Test Item Value Reference Range Interpretation Comme nts Leukocytes (test code = Leukocytes) Negative Nitrite (test code = Nitrite) negative Urobilinogen (test code = Urobilinogen) Normal Protein (test code = Protein) Negative pH (test code = pH) 7.0 Blood (test code = Blood) Negative Specific [place] (test code = Specific [place]) 1.010 Ketone (test code = Ketone) Negative Bilirubin (test code = Bilirubin) Negative Glucose (test code = Glucose) Negative Appearance (test code = Appearance) Clear Color (test code = Color) Pale Yellow [facility] Medicalurinalysis, [id number] 16:33:57* Test Item Value Reference Range Interpretation Comme nts Leukocytes (test code = Leukocytes) Negative Nitrite (test code = Nitrite) negative Urobilinogen (test code = Urobilinogen) Normal Protein (test code = Protein) Negative pH (test code = pH) 6.5 Blood (test code = Blood) Negative Specific [place] (test code = Specific [place]) 1.015 Ketone (test code = Ketone) Negative Bilirubin (test code = Bilirubin) Negative Glucose (test code = Glucose) Negative Appearance (test code = Appearance) Clear Color (test code = Color) Yellow [facility] Medicalinfectious disease [id number] 00:00:00* Test Item Value Reference Range Interpretation [...] epidermidis, haemolyticus, lugdunensis) 31.167 ppm 19.961-24.689 [facility] Medicalurinalysis, [id number] 14:15:00* Test Item Value Reference Range Interpretation Comme nts Leukocytes (test code = Leukocytes) 1+ Nitrite (test code = Nitrite) negative Urobilinogen (test code = Urobilinogen) Normal Protein (test code = Protein) Negative pH (test code = pH) 6.5 Blood (test code = Blood) 3+ Specific [place] (test code = Specific [place]) 1.010 Ketone (test code = Ketone) Negative Bilirubin (test code = Bilirubin) Negative Glucose (test code = Glucose) Negative Appearance (test code = Appearance) Clear Color (test code = Color) Pale Yellow [facility], [id number] 09:40:24* Test Item Value Reference Range Interpretation Comme nts Leukocytes (test code = Leukocytes) Negative Nitrite (test code = Nitrite) negative Urobilinogen (test code = Urobilinogen) Normal Protein (test code = Protein) Negative pH (test code = pH) 6.0 Blood (test code = Blood) Negative Specific [place] (test code = Specific [place]) 1.010 Ketone (test code = Ketone) Negative Bilirubin (test code = Bilirubin) Negative Glucose (test code = Glucose) Negative Appearance (test code = Appearance) Clear Color (test code = Color) Yellow Tyrell RamonGotkkyrSIOA-KgK-8 (COVID-19) Ag [Presence] in Respiratory specimen by Rapid [id number] 16:57:00* Test Item Value Reference Range Interpretation Comme nts SARS CoV 2 (test code = SARS CoV 2) positive [facility] Notes Date/Time Note Provider Source 2024-12-23 07:07:00 [id number] [facility] [address] [place] [address] PATIENT NAME: DANITA MORGAN ADMIT DATE: 12/18/24 ACCOUNT NO: [id number] ROOM NO: [id number] AGE: 69 REPORT TYPE: [...] Dictated: 12/23/2024 07:07:49 Date Transcribed: 12/23/2024 07:22:16 [facility] Receipt ID: [id number] Authenticated by Mauri Guadalupe MD On 12/23/2024 12:13:41 PM at 1213 PATIENT NAME: DANITA MORGAN [facility] 2024-12-18 13:55:00 [facility] ([facility]) Brief Op Note REPORT#:[id number] REPORT STATUS: Signed REPORT INITIALIZATION DATE:12/18/24 TIME: 1355 PATIENT: DANITA MORGAN UNIT #: [id number] ROOM/BED: [place] [address] : 56 AGE: 69 SEX: F ATTEND: Mauri Guadalupe MD ADM AUTHOR: Mauri Guadalupe MD REPT SERVICE DT/TIME: 12/18/24 1355 * ALL edits or amendments must be made on the electronic/computer document * Op/Inv Proc Note - Brief Pre-procedure diagnosis: djd lt knee Post-procedure diagnosis: same as pre procedure dx Procedures performed: lt tka Primary Surgeon: scar Counselor Camp(s): carina Anesthesia: spinal anesthetic Findings: djd Complications: none Estimated blood loss in ml's: 75 Specimens removed/altered: none at 1356 RPT #:[id number] END OF REPORT [facility] 2024-11-19 11:26:00 [id number] [place] [address] PATIENT NAME: DANITA MORGAN ADMIT DATE: ACCOUNT NO: [id number] ROOM NO: AGE: 69 REPORT TYPE: ELECTROCARDIOGRAM SEX: F ADMITTING PHYSICIAN: ATTENDING PHYSICIAN:Mauri Guadalupe MD Order: [id number] Test Reason : PREOP CLEARANCE H/O HTN [...] previous ECGs available Confirmed by POOJA DEMARCO ([id number]) on 11/21/2024 9:49:41 AM Referred By: Mauri Guadalupe Confirmed by:POOJA DEMARCO PATIENT NAME: DANITA MORGAN [facility] 2024-06-27 19:19:22 Associated Problem(s): Primary localized osteoarthritis [...] knee arthroplasty is warranted due to the [id number] on the x-ray. She states she would like to think about it and will call us back and let us know. T [facility]
[2025-07-23 22:58] LABS: Sqamous Epithelial <5 /HPF (None Seen); Urine Culture Reflex Order NOT NEEDED; Urine Microscopic Reflex YN ORDER UMIC
[2025-07-23 23:12] LABS: ALT/SGPT 50.0 U/L (13-56); AST/SGOT 22.0 U/L (15-37); Absolute Lymphocytes (CBC) 1.5 K/uL (0.7-4.9); Albumin 3.4 g/dL (3.4-5.0); Albumin/Globulin Ratio 0.8 (1.1-1.8); Alkaline Phosphatase 90.0 U/L (45-117); Anion Gap 6.5 mEq/L (5.0-15.0); BUN Blood Urea Nitrogen 16.0 mg/dL (7-18); Globulin 4.3 g/dL (2.3-3.5); Glucose Level 92.0 mg/dL (74-106); Hematocrit 42.3 % (36.0-45.0); Hemoglobin 14.6 g/dL (12.0-15.0); Lipase 24.0 U/L (13-75); MCH 32.5 pg (27.0-35.0); MCHC 34.5 g/dL (32.0-36.0); MCV 94.2 fL (80-100); MPV 8.6 fL (7.6-11.3); Nucleated RBC Absolute Count 0.0 (0-0); Nucleated Red Blood Cells % 0.0 % (0-0); Potassium 3.5 mEq/L (3.5-5.1); RBC Red Blood Cell Count 4.49 M/uL (3.86-4.86); White Blood Count 14.10 thou/uL (4.3-10.9)
[2025-07-24] MEDS ORDERED: KETOROLAC 30 MG/ML INJ ONE (00:36)
[2025-07-24] MEDS ORDERED: NA CHLORIDE 0.9% 1,000 ML ONE (00:36)
--- NOTE | 2025-07-24 02:09 | ER ---
Nurse's Notes [facility] Name: Danita Soto Age: 69 yrs Sex: Female : 1955 Arrival Date: 07/23/2025 Time: 21:34 Bed 20 Private MD: Diagnosis: Diverticulitis of large intestine without perforation or abscess without bleeding Presentation: 07/23 21:56 Chief complaint: Patient states: SUPRAPUBIC PAIN, URINARY FREQUENCY THAT BEGAN LAST dd2 NIGHT. PT REPORTS TOOK OLD ANTIBIOTIC MICROBID, BUT PAIN CONTINUES AND IS MOVING UP STOMACH. Coronavirus screen: At this time, the client does not indicate any symptoms associated with coronavirus-19. Ebola Screen: No symptoms or risks identified at this time. Initial Sepsis Screen: Does the patient meet any 2 criteria? No. Patient's initial sepsis screen is negative. Does the patient have a suspected source of infection? No. Patient's initial sepsis screen is negative. Risk Assessment: Do you want to hurt yourself or someone else? Patient reports no desire to harm self or others. Onset of symptoms was July 22, 2025. 21:56 Method Of Arrival: Ambulatory dd2 21:56 Acuity: LOBITO 3 dd2 Triage Assessment: 21:59 General: Appears in no apparent distress. uncomfortable, well groomed, Behavior is dd2 calm, cooperative, appropriate for age. Pain: Complains of pain in suprapubic area, right lower quadrant and left lower quadrant. GI: Reports lower abdominal pain, upper abdominal pain, nausea. : Reports pain in suprapubic area urinary frequency. Historical: - Allergies: 21:59 No Known Allergies; dd2 - PMHx: 21:59 Hypertensive disorder; dd2 - PSHx: 21:59 Ligation of fallopian tube; pelvic floor; Total abdominal hysterectomy; dd2 - Immunization history:: Adult Immunizations up to date. - Infectious Disease History:: Denies. - Social history:: Smoking status: Patient denies any tobacco usage or history of. Screenin/09 00:59 [facility] ED Fall Risk Assessment (Adult) History of falling in the last 3 months, tb4 including since admission No falls in past 3 months (0 pts) Confusion or Disorientation No (0 pts) Intoxicated or Sedated No (0 pts) Impaired Gait No (0 pts) Mobility Assist Device Used No (0 pt) Altered Elimination No (0 pt) Score/Fall Risk Level 0 - 2 = Low Risk Maintained a safe environment. Abuse screen: Denies threats or abuse. Denies injuries from another. Nutritional screening: No deficits noted. Tuberculosis screening: No symptoms or risk factors identified. Assessment: 07/23 22:34 Reassessment: See triage note. General: Appears uncomfortable, Behavior is calm, tb4 cooperative. Pain: Complains of pain in right lower quadrant and left lower quadrant Pain does not radiate. Pain currently is 8 out of 10 on a pain scale. Quality of pain is described as sharp, Pain began gradually, over one week Is continuous, Alleviated by nothing. Neuro: Level of Consciousness is awake, alert, obeys commands, Oriented to person, place, time, situation, Moves all extremities. Full function Gait is steady, Speech is normal, Facial symmetry appears normal. Cardiovascular: Patient's skin is warm and dry. Respiratory: Airway is patent Respiratory effort is even, unlabored, Respiratory pattern is regular, symmetrical. GI: Reports lower abdominal pain. : No deficits noted. No signs and/or symptoms were reported regarding the genitourinary system. EENT: No deficits noted. No signs and/or symptoms were reported regarding the EENT system. Derm: No deficits noted. No signs and/or symptoms reported regarding the dermatologic system. Skin is intact, is healthy with good turgor, Skin is dry, Skin is normal, Skin temperature is warm. Musculoskeletal: No deficits noted. No signs and/or symptoms reported regarding the musculoskeletal system. Circulation, motion, and sensation intact. Range of motion:. 07/24 03:50 Reassessment: Patient appears in no apparent distress at this time. Patient and/or jb4 family updated on plan of care and expected duration. Pain level reassessed. Patient is alert, oriented x 3, equal unlabored respirations, skin warm/dry/pink. Vital Signs: 07/23 21:56 BP 144 / 82; Pulse 103; Resp 16; Temp 98.1; Pulse Ox 97% ; Weight 86.18 kg; Height 5 dd2 ft. 4 in. ; Pain 7/10; 22:38 BP 166 / 83; Pulse 83; Resp 20; Temp 99.3(O); Pulse Ox 100% on R/A; Weight 86.18 kg; tb4 Height 5 ft. 4 in. ; Pain 8/10; 23:40 BP 159 / 73; Pulse 83; Resp 17; Pulse Ox 100% on R/A; Pain 8/10; tb4 10 00:59 BP 161 / 80; Pulse 88; Resp 17; Pulse Ox 97% on R/A; tb4 02:00 BP 130 / 63; Pulse 96; Resp 17; Pulse Ox 100% on R/A; Pain 6/10; tb4 03:00 BP 126 / 67; Pulse 94; Resp 17; Pulse Ox 100% on R/A; tb4 07/23 22:38 Body Mass Index 32.61 (86.18 kg, 162.56 cm) tb4 07/23 21:56 Pain Scale: Adult dd2 22:38 Pain Scale: Adult tb4 23:40 Pain Scale: Adult tb4 02:00 Pain Scale: Adult tb4 ED Course: 07/23 21:38 Patient arrived in ED. sj2 21:57 Oliver Chavez PA-C is PHCP. cp 21:57 Bo Morris DO is Attending Physician. cp 21:59 Triage completed. dd2 21:59 Arm band placed on right wrist. dd2 22:51 Initial lab(s) drawn, by me, sent to lab. Inserted saline lock: 20 gauge in right rk3 antecubital area, using aseptic technique. Blood collected. Flushed with 10 mL NS. 23:40 CT Abd/Pelvis- W/WO Contrast In Process Unspecified. EDMS 07/24 00:59 Patient has correct armband on for positive identification. Bed in low position. Call tb4 light in reach. Side rails up X 1. Adult w/ patient. Client placed on continuous cardiac and pulse oximetry monitoring. NIBP monitoring applied. Door closed. Lights dimmed. Warm blanket given. 00:59 No provider procedures requiring assistance completed. tb4 02:08 Harpreet Ugalde MD is Hospitalizing Provider. cp 03:18 Norbert Huntley MD is Referral Physician. cp 03:18 Harpreet Ugalde MD is Referral Physician. cp 03:50 Provided Education on: discharge instructions.. jb4 03:50 IV discontinued, intact, bleeding controlled, No redness/swelling at site. Pressure jb4 dressing applied. Administered Medications: 00:52 Drug: NS 0.9% IV 1000 ml IV at 1 bolus Per protocol; to be given as a bolus over 90 tb4 minutes Route: IV; Rate: 1 bolus; Site: right antecubital; 01:52 Follow up: Response: No adverse reaction; IV Status: Completed infusion tb4 00:53 Drug: Ketorolac IVP 15 mg IVP once Route: IVP; Site: right antecubital; tb4 01:52 Follow up: Response: No adverse reaction; Pain is decreased tb4 03:06 Drug: morphine IVP or IV 4 mg IVP once over 4 mins Route: IVP; Infused Over: 4 mins; tb4 Site: right antecubital; 03:15 Drug: metroNIDAZOLE PO 500 mg PO once Route: PO; jb4 03:15 Drug: Hydrocodone-Acetaminophen PO (7.5 mg-325 mg) 1 tabs PO once; RASS on ADMIN: jb4 Combtv4, Very Agttd3, Agttd2, Rstlss1, AlertClm0, Drwsy-1, Lt Sdtn-2, Mod Sdtn-3, Dp Sdtn-4, UnArsble-5 Route: PO; 03:20 Drug: Piperacillin-Tazobactam IVPB 3.375 grams IVPB once over 60 mins; (mix in NS 100 tb4 mL) Route: IVPB; Infused Over: 60 mins; Site: right antecubital; Medication: 00:59 VIS not applicable for this client. tb4 Outcome: 02:08 Decision to Hospitalize by Provider. cp 03:19 Discharge ordered by MD. cp 03:50 Discharged to home ambulatory, jb4 03:50 Condition: stable 03:50 Discharge instructions given to patient, Instructed on discharge instructions, follow up and referral plans. medication usage, Demonstrated understanding of instructions, follow-up care, medications, Prescriptions given X 4, 04:14 Patient left the ED. jb4 Signatures: Dispatcher [employer] EDMS Oliver Chavez, KEYANNA PAJosé Berrios cp RN RN jb4 BASIM WILKES RN RN dd2 Herminio Vogt sj2 Marly Smith rk3 Eulalia Romano RN RN tb4
--- NOTE | 2025-07-24 02:09 | EDPHYS ---
Physician Documentation [facility] Name: Danita Soto Age: 69 yrs Sex: Female : 1955 Arrival Date: 07/23/2025 Time: 21:34 Bed 20 Private MD: ED Physician Bo Morris HPI: 07/23 22:30 This 69 yrs old Female presents to ER via Ambulatory with complaints of Pelvic Pain. cp 22:30 The patient presents with abdominal pain lower mid abdomen. cp 22:30 Onset: The symptoms/episode began/occurred yesterday. The symptoms radiate to cp Associated signs and symptoms: Pertinent positives: nausea. The symptoms are described as constant. Severity of pain: in the emergency department the pain is unchanged despite home interventions, took Macrobid antibiotic due to concern for UTI with no improvement. Historical: - Allergies: 21:59 No Known Allergies; dd2 - PMHx: 21:59 Hypertensive disorder; dd2 - PSHx: 21:59 Ligation of fallopian tube; pelvic floor; Total abdominal hysterectomy; dd2 - Immunization history:: Adult Immunizations up to date. - Infectious Disease History:: Denies. - Social history:: Smoking status: Patient denies any tobacco usage or history of. ROS: 22:35 Constitutional: Negative for fever, cp 22:35 Eyes: Negative for injury, pain, redness, and discharge, cp 22:35 ENT: Negative for drainage from ear(s), ear pain, sore throat, difficulty swallowing, difficulty handling secretions, 22:35 Cardiovascular: Negative for chest pain, edema, palpitations, 22:35 Respiratory: Negative for cough, shortness of breath, wheezing, 22:35 Abdomen/GI: Positive for abdominal pain, nausea, Negative for vomiting, diarrhea, constipation, anorexia, black/tarry stool, rectal bleeding, 22:35 Neuro: Negative for altered mental status, dizziness, headache, numbness, weakness, 22:35 All other systems are negative, Exam: 22:40 Constitutional: The patient appears in no acute distress, alert, awake, cp non-diaphoretic, non-toxic, well developed, well nourished, uncomfortable, 22:40 Head/Face: Normocephalic, atraumatic. cp 22:40 Eyes: Periorbital structures: appear normal, Conjunctiva: normal, no exudate, no injection, Sclera: no appreciated abnormality, Lids and lashes: appear normal, bilaterally, 22:40 ENT: External ear(s): are unremarkable, Nose: is normal, Mouth: Lips: moist, Oral mucosa: moist, Posterior pharynx: Airway: no evidence of obstruction, patent, 22:40 Chest/axilla: Inspection: normal, 22:40 Cardiovascular: Rate: tachycardic, Rhythm: regular, Edema: is not appreciated, JVD: is not appreciated, 22:40 Respiratory: the patient does not display signs of respiratory distress, Respirations: normal, no use of accessory muscles, no retractions, labored breathing, is not present, Breath sounds: are clear throughout, no decreased breath sounds, no stridor, no wheezing, 22:40 Abdomen/GI: Inspection: abdomen appears normal, Bowel sounds: active, all quadrants, Palpation: soft, in all quadrants, moderate abdominal tenderness, in the suprapubic area, right lower quadrant and left lower quadrant, rebound tenderness, is not appreciated, voluntary guarding, is elicited in the suprapubic area, right lower quadrant and left lower quadrant, 22:40 Back: CVA tenderness, is absent, 22:40 Neuro: Orientation: to person, place \T\ time. Mentation: is normal, Motor: moves all fours, strength is normal, Sensation: is normal, Vital Signs: 21:56 BP 144 / 82; Pulse 103; Resp 16; Temp 98.1; Pulse Ox 97% ; Weight 86.18 kg; Height 5 dd2 ft. 4 in. ; Pain 7/10; 22:38 BP 166 / 83; Pulse 83; Resp 20; Temp 99.3(O); Pulse Ox 100% on R/A; Weight 86.18 kg; tb4 Height 5 ft. 4 in. ; Pain 8/10; 23:40 BP 159 / 73; Pulse 83; Resp 17; Pulse Ox 100% on R/A; Pain 8/10; tb4 10/09 00:59 BP 161 / 80; Pulse 88; Resp 17; Pulse Ox 97% on R/A; tb4 02:00 BP 130 / 63; Pulse 96; Resp 17; Pulse Ox 100% on R/A; Pain 6/10; tb4 03:00 BP 126 / 67; Pulse 94; Resp 17; Pulse Ox 100% on R/A; tb4 07/23 22:38 Body Mass Index 32.61 (86.18 kg, 162.56 cm) tb4 07/23 21:56 Pain Scale: Adult dd2 22:38 Pain Scale: Adult tb4 23:40 Pain Scale: Adult tb4 02:00 Pain Scale: Adult tb4 MDM: 07/23 21:57 Medical Screening Exam initiated cp 07/24 03:16 ED course: Vital signs stable. Discussed results of today's testing to include CT cp showing sigmoid diverticulitis with concern of developing fistula between the bladder and the colon. UA does not show any signs of infection at this time. Patient would like to try outpatient treatment with oral antibiotics and understands that she can return at any time for reevaluation. 03:18 Data reviewed: vital signs, nurses notes, lab test result(s), radiologic studies, CT cp scan, and as a result, I will discharge patient. 03:18 Differential diagnosis: appendicitis, bowel obstruction, diverticulitis, gastritis, cp non-specific abd pain, pancreatitis, Pyelonephritis, Ureterolithiasis, urinary tract infection. Consideration of Admission/Observation Escalation of care including admission/observation considered. I considered the following discharge prescriptions or medication management in the emergency department Medications were administered in the Emergency Department. See MAR. Test considered but Not performed: MRI: abdomen/pelvis. Care significantly affected by the following chronic conditions: Hypertension. 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 Response to treatment: the patient's symptoms have mildly improved after treatment, and as a result, I will discharge patient. 07/23 22:07 Order name: CBC with Diff; Complete Time: 23:32 cp 07/23 23:32 Interpretation: Normal except: WBC 14.10; DAVONTE% 83.3; LYM% 10.3; NEUT A 11.8. cp 07/23 22:07 Order name: CMP; Complete Time: 23:32 cp 07/23 23:32 Interpretation: Normal except: NA 135; GLOB 4.3; A/G 0.8. cp 10/08 22:07 Order name: Lipase; Complete Time: 23:32 cp 07/23 22:07 Order name: Lactate w/ 2H reflex if indic.; Complete Time: 23:32 cp 07/23 23:33 Interpretation: Reviewed. 07/23 22:07 Order name: UA Rfx Michael Cult if indicated; Complete Time: 23:32 cp 07/23 22:07 Order name: CT Abd/Pelvis- W/WO Contrast cp 07/23 22:07 Order name: IV Saline Lock; Complete Time: 22:52 cp 07/23 22:07 Order name: Labs collected and sent; Complete Time: 22:52 cp Administered Medications: 00:52 Drug: NS 0.9% IV 1000 ml IV at 1 bolus Per protocol; to be given as a bolus over 90 tb4 minutes Route: IV; Rate: 1 bolus; Site: right antecubital; 01:52 Follow up: Response: No adverse reaction; IV Status: Completed infusion tb4 00:53 Drug: Ketorolac IVP 15 mg IVP once Route: IVP; Site: right antecubital; tb4 01:52 Follow up: Response: No adverse reaction; Pain is decreased tb4 03:06 Drug: morphine IVP or IV 4 mg IVP once over 4 mins Route: IVP; Infused Over: 4 mins; tb4 Site: right antecubital; 03:15 Drug: metroNIDAZOLE PO 500 mg PO once Route: PO; jb4 03:15 Drug: Hydrocodone-Acetaminophen PO (7.5 mg-325 mg) 1 tabs PO once; RASS on ADMIN: jb4 Combtv4, Very Agttd3, Agttd2, Rstlss1, AlertClm0, Drwsy-1, Lt Sdtn-2, Mod Sdtn-3, Dp Sdtn-4, UnArsble-5 Route: PO; 03:20 Drug: Piperacillin-Tazobactam IVPB 3.375 grams IVPB once over 60 mins; (mix in NS 100 tb4 mL) Route: IVPB; Infused Over: 60 mins; Site: right antecubital; Disposition: 04:57 Co-signature as Attending Physician, Bo Morris DO I reviewed the patient's care tt7 provided by the Advanced Practice Provider and agree with the diagnosis and treatment plan. Disposition Summary: 07/24/25 03:19 Discharge Ordered Notes: Location: Home(07/24/25 03:19) cp Problem: new(07/24/25 03:19) cp Symptoms: have improved(07/24/25 03:19) cp Condition: Stable(07/24/25 03:19) cp Diagnosis - Diverticulitis of large intestine without perforation or abscess without cp bleeding(07/24/25 03:19) Followup: cp - With: Norbert Huntley MD - When: 1 week - Reason: Recheck today's complaints Followup: cp - With: Harpreet Ugalde MD - When: 2 - 3 days - Reason: Recheck today's complaints Discharge Instructions: - Discharge Summary Sheet cp - High-Fiber Eating Plan cp - Diverticulitis cp - Virtual Colonoscopy cp Forms: - Medication Reconciliation Form cp - Antibiotic Education cp - Prescription Opioid Use cp - Patient Portal Instructions cp - Leadership Thank You Letter cp Prescriptions: - Augmentin 875-125 mg Oral Tablet - take 1 tablet ORAL route every 12 hours for 10 days; 20 tablet; Refills: 0, cp Product Selection Permitted - Zofran 4 mg Oral Tablet - take 1 tablet ORAL route every 12 hours As needed; 20 tablet; Refills: 0, cp Product Selection Permitted - Metronidazole 500 mg Oral Tablet - take 1 tablet ORAL route every 8 hours; 30 tablet; Refills: 0, Product cp Selection Permitted - Tramadol 50 mg Oral Tablet - take 1 tablet ORAL route every 8 hours as needed; 12 tablet; Refills: 0, cp Product Selection Permitted Signatures: Dispatcher [employer] EDTX Oliver Chavez, PA-C PA-C José Ruiz RN RN jb4 BASIM WILKES RN RN dd2 Eulalia Romano RN RN tb4 Bo Morris, DO tt7 Corrections: (The following items were deleted from the chart) 07/23 22:08 22:07 CBC+H.LAB.BRZ ordered. EDMS EDMS 22:08 22:07 COMPREHENSIVE METABOLIC PANEL+C.LAB.BRZ ordered. EDMS EDMS 22: 22:07 LIPASE+C.LAB.BRZ ordered. EDMS EDMS 22:08 22:07 LACTATE+C.LAB.BRZ ordered. EDMS EDMS 22:08 22:07 UA Rfx Michael Cult if indicated+U.LAB.BRZ ordered. EDMS EDMS 07/24 03:17 02:08 Inpatient Admission cp cp 03:17 02:08 Ugalde, A cp cp 03:17 02:08 Telemetry/MedSurg (Inpatient) cp cp 03:17 02:08 Stable cp cp 03:17 02:08 new cp cp 03: 02:08 have improved cp cp 03: 02:08 Standard cp cp 03: 02:08 cp cp 03:17 02:08 Diverticulitis of large intestine without perforation or abscess without bleeding cp cp
[2025-07-24] MEDS ORDERED: NA CHLORIDE 0.9% 100 ML ONE (03:01)
[2025-07-24] MEDS ORDERED: MORPHINE 4 MG/ML SYR ONE (03:01)
[2025-07-24] MEDS ORDERED: PIPERACIL/TAZO 3.375 GM VIAL IV ONE (03:02)
--- NOTE | 2025-07-24 03:12 | RAD REPORT ---
CT ABDOMEN PELVIS WITHOUT THEN WITH IV CONTRAST CLINICAL INDICATION: Lower abdomen pain COMPARISON: CT abdomen pelvis 11/26/2024 TECHNIQUE: CT images of the abdomen and pelvis obtained prior to and following administration of intr avenous contrast. Multiplanar reformats were provided. Dose-optimization techniques such as automated exposure control, iterative reconstruction, and mA and/or kV adjustment for patient size wa s utilized for this examination. FINDINGS: LOWER CHEST: Small pericardial effusion. Lung bases are clear.. LIVER: Unremarkable. BILIARY: Unremarkable. PANCREAS: Unremarkable. SPLEEN: Unremarkable. ADRENALS: Unremarkable. KIDNEYS/URETERS: Several small left renal calculi up to 2 mm. No hydroureteronephrosis. No suspicious lesion STOMACH: Unremarkable. BOWEL: Sigmoid diverticulosis. Abnormal wall thickening with pericolonic stranding of mid sigmoid col on, in keeping with diverticulitis. There is a focus of ill-defined fascial plane between the diseased sigmoid colon and right posterior bladder dome (series 303 image 75, series 302 image 52); d eveloping fistula cannot be excluded. APPENDIX: Normal. PERITONEUM/RETROPERITONEUM: No focal collection. No pneumoperitoneum. No ascites.. LYMPH NODES: Unremarkable. URINARY BLADDER: Abnormal wall thickening of urinary bladder, more so at the bladder dome, with assoc iated perivesical stranding, in keeping with cystitis and may be sequela of diverticulitis. REPRODUCTIVE: Status post hysterectomy. VASCULATURE: Unremarkable. ABDOMINAL/PELVIC WALL: Small fat containing umbilical hernia. BONES: Multilevel degenerative changes and levocurvature of lumbar spine. [id number] central ca nal and foraminal stenosis at lower lumbar levels secondary to disc osteophyte complex and facet arthrosis. IMPRESSION: 1. Acute sigmoid diverticulitis. 2. Cystitis, likely secondary to diverticulitis. 3. Focus of ill-defined fascial plane between the diseased sigmoid colon and right posterior bladde r dome; developing fistula cannot be excluded. 4. Nonobstructive left nephrolithiasis. 5. Small pericardial effusion. Electronically signed by: Monik Lopez MD 07/24/2025 01:53 AM CDT RP Due to temporary technical issues with the PACS/Em[employer]+ reporting system, reports are being aurora d by the in-house radiologist without review as a courtesy to ensure prompt reporting the interpreting radiologist is fully responsible for the content of the report. Transcribed Date/Time: 07/24/2025 3:12 AM
[2025-07-24] MEDS ORDERED: HYDROCODONE/APAP 7.5/325 MG TAB ONE (03:13)
[2025-07-24 04:23] VITALS: TEMP 99.3
[2025-07-24 04:28] VITALS: O2SAT 100
[2025-07-24 04:30] VITALS: BP 126/67
== END 2025-07-24 04:14 | disposition home or self-care (01) ==
LOC: ER 21:34
DX: K57.32 Diverticulitis of large intestine without perforation or abscess without bleeding (principal)
CPT/HCPCS: 96361; 85025; 81001; 36415; 83605; 83690; 80053; 74178; 96375; 96374; 99284; Q9967; J1885; J2543; J7030